=== PATIENT | male | born 1945 | race African-American/Black ===

== ENCOUNTER → 2017-06-18 | Outpatient (CLI) | payer MEDICARE ==
--- NOTE | 2017-06-18 15:11 | XR ---
EXAMINATION TYPE: XR lumbar spine 2 or 3V DATE OF EXAM: 06/18/2017 CLINICAL HISTORY: Low back pain after fall one month ago TECHNIQUE: Frontal and lateral images of the lumbar spine are obtained. COMPARISON: None FINDINGS: There are hypoplastic 12th ribs, especially on the left. There are 5 lumbar type vertebral bodies identified. The lumbar spine shows satisfactory alignment without evidence of acute fracture or dislocation. Vertebral body heights and disk space heights are within normal limits. Moderate to severe multilevel degenerative disc disease is seen of the lumbar spine demonstrated as flowing anter ior osteophytes, intervertebral disc space narrowing, facet arthropathy, and endplate sclerosis throu ghout the lumbar spine. The overlying soft tissue appears unremarkable. IMPRESSION: 1. No acute fracture or dislocation is seen in the lumbar spine. 2. Moderate to severe multilevel degenerative disc disease of the lumbar spine.
== END | disposition home or self-care (01) ==
LOC: RADXRMAIN 14:33
PROVIDERS: ATTEND Physician Assistant
DX: M51.36 Other intervertebral disc degeneration, lumbar region (principal)
CPT/HCPCS: 72100

== ENCOUNTER 2017-07-13 07:21 | Day surgery (SDC) | payer MEDICARE ==
[2017-07-08 12:49] VITALS: BMI 35.9
[2017-07-13 07:43] VITALS: TEMP 97.9
[2017-07-13] MEDS ORDERED: LACTATED RINGERS 1,000 ML IV ONE (07:45)
[2017-07-13] MEDS ORDERED: GLUCAGON 1 MG/ML VIAL ONE (08:58)
[2017-07-13] MEDS ORDERED: LABETALOL 5 MG/ML VIAL MDV ONE (08:58)
[2017-07-13] MEDS ORDERED: MIDAZOLAM 2 MG/2 ML VIAL ONE (08:58)
[2017-07-13] MEDS ORDERED: PROPOFOL 10 MG/ML 20 ML VIAL IV ONE (08:58)
[2017-07-13] MEDS ORDERED: LACTATED RINGERS 1,000 ML IV SCH (09:36)
[2017-07-13 09:45] VITALS: RESP 16
--- NOTE | 2017-07-13 09:46 | P.OP ---
Date of Procedure: 07/13/17 Preoperative Diagnosis: Positive Colaguard Postoperative Diagnosis: Same Procedure(s) Performed: Colonoscopy, biopsy polypoid lesion near cecum, biopsy lesion distal transverse colon with tattooing of the area Anesthesia: MAC Surgeon: Jessie Flynn Estimated Blood Loss (ml): 3 IV fluids (ml): 250 Pathology: other (Biopsy polyp distal transverse colon, biopsy polypoid lesion near cecum) Condition: stable Disposition: PACU Indications for Procedure: The patient is a 72-year-old black male who presented for evaluation secondary to a positive Corgard test. The patient however states he has been taking ibuprofen and stopped just 2 days ago. Secondary to his ibuprofen use it was discussed that should we see any lesions of concern were made biopsy but would most likely not remove these lesions. The patient is understanding and agreed to proceed with the procedure. The patient in the endoscopy suite was placed in the left lateral decubitus position. Rectal examination was performed. Patient was noted to have external hemorrhoids with a large right lateral hemorrhoidal external complex. Rectal exam did not reveal any masses of concern. Colonoscope was passed through the anus into the rectum. Was passed into the sigmoid colon where he had extensive diverticuli and spastic bowel. Glucagon was given. The scope was then able to be advanced to the splenic flexure into the distal transverse colon. In the distal transverse colon a polypoid lesion was identified this was somewhat sessile and somewhat suspicious. Biopsies were obtained and the area was tattooed using 2 mL of methylene blue. The scope continued to be advanced and additional polypoid lesions were identified in the mid transverse colon. Secondary to the fact that the he had been taking ibuprofen and it was certain that we would need to come back related to the one just identified these were not removed. Scope continued to be advanced beyond the hepatic flexure down into the right colon. The scope was advanced to the cecum. Upon advancing the scope a large polypoid lesion was identified near the ileocecal valve. This was likewise biopsied. The scope was advanced into the cecum and no lesions within the cecum were identified. The scope was withdrawn taking approximately 8 minutes to withdraw the scope. The lesion noted at the area of the cecum was biopsied as stated in the scope continued to be advanced. The scope was brought up to the transverse colon. Again additional small polypoid changes were noted which were are not biopsied removed secondary to the ibuprofen and the fact that we would definitely be needing to return either for polypectomy of the lesions stated that he would need a colon resection of the skin back as cancer. The scope continued to be withdrawn to the area of the left colon diverticuli identified. Scope was brought down to the rectum where it was retroflexed internal hemorrhoids identified. The biopsy of the lesions was somewhat cold biopsy forceps. Impression/plan: 1. Hemorrhoids external and internal with a large right lateral external hemorrhoidal complex 2. Extensive diverticuli 3. Polypoid lesions at the distal transverse colon biopsied and tattooed with methylene blue, a polypoid lesions within the transverse colon which were not removed secondary to patient being on ibuprofen 4. Polypoid lesion near the area of the cecum biopsied to rule out carcinoma Plan: 1. Follow up with patient in office next week with results of biopsy 2. Conservative management of diverticuli and hemorrhoids
--- NOTE | 2017-07-13 09:47 | P.DS ---
Providers Attending physician: Jessie Flynn Primary care physician: Stated None Plan - Discharge Summary New Discharge Prescriptions: No Action Furosemide [Lasix] 40 mg PO TUTH ALPRAZolam [Xanax] 0.25 mg PO TID Cyclobenzaprine [Flexeril] 5 mg PO TID Metoprolol Succinate [Toprol Xl] 50 mg PO HS Ibuprofen [Motrin] 800 mg PO TID PRN PRN Reason: Pain Atorvastatin [Lipitor] 20 mg PO HS Tamsulosin HCl [Flomax] 0.4 mg PO DAILY Discharge Medication List ALPRAZolam [Xanax] 0.25 mg PO TID 07/08/17 [History] Atorvastatin [Lipitor] 20 mg PO HS 07/08/17 [History] Cyclobenzaprine [Flexeril] 5 mg PO TID 07/08/17 [History] Furosemide [Lasix] 40 mg PO TUTH 07/08/17 [History] Ibuprofen [Motrin] 800 mg PO TID PRN 07/08/17 [History] Metoprolol Succinate [Toprol Xl] 50 mg PO HS 07/08/17 [History] Tamsulosin HCl [Flomax] 0.4 mg PO DAILY 07/08/17 [History] Follow up Appointment(s)/Referral(s): Jessie Flynn MD [STAFF PHYSICIAN] - 1 Week Activity/Diet/Wound Care/Special Instructions: diverticular diet Discharge Disposition: HOME SELF-CARE
[2017-07-13 10:04] VITALS: PULSE 78
[2017-07-13 10:27] VITALS: BP 153/88
== END 2017-07-13 10:43 | disposition home or self-care (01) ==
LOC: ORWHC2ENDO 07:21
PROVIDERS: ATTEND Surgery
DX: D12.3 Benign neoplasm of transverse colon (principal); D12.0 Benign neoplasm of cecum; K64.8 Other hemorrhoids; K92.1 Melena; I25.2 Old myocardial infarction; K57.30 Diverticulosis of large intestine without perforation or abscess without bleeding; I10 Essential (primary) hypertension; E78.5 Hyperlipidemia, unspecified; J45.909 Unspecified asthma, uncomplicated; I25.10 Atherosclerotic heart disease of native coronary artery without angina pectoris; K58.9 Irritable bowel syndrome, unspecified; K64.4 Residual hemorrhoidal skin tags; Z87.891 Personal history of nicotine dependence; Z79.82 Long term (current) use of aspirin; Z79.899 Other long term (current) drug therapy; Z85.46 Personal history of malignant neoplasm of prostate; Z86.718 Personal history of other venous thrombosis and embolism; Z79.1 Long term (current) use of non-steroidal anti-inflammatories (NSAID)
CPT/HCPCS: 88305; 45380; 45381; J2250; J1610; J2704; 44404

== ENCOUNTER → 2019-03-24 | Outpatient (CLI) | payer MEDICARE, OTHER ==
--- NOTE | 2019-03-24 14:09 | CT ---
EXAMINATION TYPE: CT angio abdomen pelvis DATE OF EXAM: 03/24/2019 COMPARISON: None INDICATION: Abdominal aortic aneurysm, without rupture, back pain DLP: 2179.5 mGycm, Automated exposure control for dose reduction was used. CONTRAST: 50 mL of Isovue 300. Study performed without Oral Contrast TECHNIQUE: Axial images were obtained from above the diaphragm to the pubic rami in the axial plane a t 5 mm thick sections. Reconstructed images are reviewed on the computer in the coronal plane. FINDINGS: Limited CT sections are obtained the lung bases. The lung bases are clear. CT ABDOMEN: Liver: There is a 2.8 cm cyst measuring 3 Hounsfield units within the medial left lobe liver. Spleen: Normal Pancreas: Mild fatty infiltration is present. Adrenal glands: The adrenal glands are normal. Gallbladder: Normal Kidneys: No masses are evident. No hydronephrosis is present. There is a 3.7 cm cyst on the anterio r left mid kidney measuring 0 Hounsfield units. There is a 2.3 cm cyst measuring 10 Hounsfield units in the upper medial posterior aspect right kidney. There is a large cyst at the inferior pole left ki dney measuring 6.3 cm in 2 Hounsfield units. A smaller cyst measuring 2.9 cm this at the inferior med ial pole left kidney. Aorta: There is a large abdominal aortic aneurysm which may have a saccular protrusion anteriorly. Th is measures roughly 9.7 cm AP by 6.9 cm transverse. The flow lumen however is significantly smaller a nd is greatest near the upper aspect of the aneurysm. Flow lumen is estimated at 4.1 cm. This appears to terminate at the iliac bifurcation. There is some mild prominence of the mid left common iliac ar juancarlos with a transverse dimension of 2.1 cm. Vascular calcifications within the iliac vessels extendin g to the femoral arteries. No aortic dissection is identified. There are 2 renal arteries. Abdominal aortic aneurysm begins below the level of the renal arteries. Inferior vena cava: Normal. CT PELVIS: Multiple diverticular changes are within the descending colon and sigmoid colon. No acute diverticuli tis is evident. Loops of bowel within the abdomen and pelvis otherwise appear unremarkable. The studi es performed without oral contrast limiting bowel evaluation. Appendix: Normal as visualized. Urinary bladder: Normal. Genitourinary structures: Prostate contains multiple brachii therapy seeds. Osseous structures: No suspicious lytic or sclerotic lesions. Degenerative changes are within the lum bar spine. IMPRESSIONS: 1. Abdominal aortic aneurysm measuring 9.7 x 6.9 cm. The flow lumen maximal near the proximal aneury sm is approximately 4.1 cm. This infrarenal abdominal aortic aneurysm appears to terminate at the bif urcation although there is some fusiform prominence of the mid left iliac artery.
== END | disposition home or self-care (01) ==
LOC: RADCTMAIN 05:51
PROVIDERS: ATTEND Surgery
DX: I71.4 Abdominal aortic aneurysm, without rupture (principal); I70.8 Atherosclerosis of other arteries
CPT/HCPCS: 82565; 84520; 36415; 74174; Q9967

== ENCOUNTER 2019-03-28 09:04 | Inpatient (IN) | payer MEDICARE, OTHER ==
--- NOTE | 2019-03-28 08:00 | ED ---
General Adult HPI - General Chief complaint: Abdominal Pain Stated complaint: rt sided pain Time Seen by Provider: 03/28/19 07:45 Source: patient, RN notes reviewed, old records reviewed Mode of arrival: ambulatory Limitations: no limitations - History of Present Illness Initial comments: This is a 73-year-old male who presents emergency Department with a known history of abdominal aortic aneurysm patient states it's about 9 cm. Patient states he had a CAT scan last week and the pain is gotten worse since then. Patient states Dr. Posey told come the emergency department. Patient states the pain is in the right CVA area around the flank on the right to the front mid abdomen. Patient denies any nausea vomiting diarrhea. Patient has any fever. Patient denies dysuria hematuria urinary frequency. Patient denies any chest pain difficulty breathing shortest breath. Patient denies any headache patient denies numbness weakness. Patient denies any lightheadedness or dizziness. - Related Data Home Medications Medication Instructions Recorded Confirmed ALPRAZolam [Xanax] 0.25 mg PO TID 07/08/17 07/13/17 Atorvastatin [Lipitor] 20 mg PO HS 07/08/17 07/13/17 Cyclobenzaprine [Flexeril] 5 mg PO TID 07/08/17 07/13/17 Furosemide [Lasix] 40 mg PO TUTH 07/08/17 07/13/17 Ibuprofen [Motrin] 800 mg PO TID PRN 07/08/17 07/13/17 Metoprolol Succinate [Toprol Xl] 50 mg PO HS 07/08/17 07/13/17 Tamsulosin HCl [Flomax] 0.4 mg PO DAILY 07/08/17 07/13/17 Allergies Allergy/AdvReac Type Severity Reaction Status Date / Time No Known Allergies Allergy Verified 03/28/19 07:41 Review of Systems ROS Statement: Those systems with pertinent positive or pertinent negative responses have been documented in the HPI. ROS Other: All systems not noted in ROS Statement are negative. Past Medical History Past Medical History: Coronary Artery Disease (CAD), Cancer, Deep Vein Thrombosis (DVT), Hyperlipidemia, Hypertension, Myocardial Infarction ([place]), Prostate Disorder Additional Past Medical History / Comment(s): HX PROSTATE CA. Last Myocardial Infarction Date:: 1997 History of Any Multi-Drug Resistant Organisms: None Reported Past Surgical History: Heart Catheterization With Stent, Orthopedic Surgery Additional Past Surgical History / Comment(s): ALEJANDRINA KNEE SCOPES. Past Anesthesia/Blood Transfusion Reactions: No Reported Reaction Date of Last Stent Placement:: 1997 Past Psychological History: No Psychological Hx Reported Smoking Status: Former smoker Past Alcohol Use History: Occasional Past Drug Use History: Marijuana - Past Family History Father Family Medical History: Cancer General Exam - General Exam Comments Initial Comments: GENERAL: Patient is well-developed and well-nourished. Patient is nontoxic and well- hydrated and is in mild distress. ENT: Neck is soft and supple. No significant lymphadenopathy is noted. Oropharynx is clear. Moist mucous membranes. Neck has full range of motion without eliciting any pain. EYES: The sclera were anicteric and conjunctiva were pink and moist. Extraocular movements were intact and pupils were equal round and reactive to light. Eyelids were unremarkable. PULMONARY: Unlabored respirations. Good breath sounds bilaterally. No audible rales rhonchi or wheezing was noted. CARDIOVASCULAR: There is a regular rate and rhythm without any murmurs gallops or rubs. ABDOMEN: Soft and nontender with normal bowel sounds. SKIN: Skin is clear with no lesions or rashes and otherwise unremarkable. NEUROLOGIC: Patient is alert and oriented x3. Cranial nerves II through XII are grossly intact. Motor and sensory are also intact. Normal speech, volume and content. Symmetrical smile. MUSCULOSKELETAL: Normal extremities with adequate strength and full range of motion. LYMPHATICS: No significant lymphadenopathy is noted PSYCHIATRIC: Normal psychiatric evaluation. Limitations: no limitations Course Vital Signs 03/28/19 07:43 Temperature 97.5 F L Pulse Rate 53 L Respiratory 18 Rate Blood Pressure 135/87 O2 Sat by Pulse 96 Oximetry Medical Decision Making - Medical Decision Making I spoke with Dr. Posey and Dr. Posey stated he will be down to see the patient. Dr. Posey came down and saw the patient and indicated he was taking the patient to the [facility] Patient's EKG shows sinus bradycardia at a rate of 56 bpm WA interval is 232 QRS is 1:30 QT interval is 4:30 QTC is 414. Patient's EKG shows no ST segment elevation or depression. - Lab Data Result diagrams: 03/28/19 08:09 Lab Results 03/28/19 Range/Units 08:09 WBC 10.3 (3.8-10.6) k/uL RBC 5.77 (4.30-5.90) m/uL Hgb 15.5 (13.0-17.5) gm/dL Hct 47.8 (39.0-53.0) % MCV 82.9 (80.0-100.0) fL MCH 26.8 (25.0-35.0) pg MCHC 32.4 (31.0-37.0) g/dL RDW 14.4 (11.5-15.5) % Plt Count 277 (150-450) k/uL Neutrophils % 75 % Lymphocytes % 12 % Monocytes % 7 % Eosinophils % 3 % Basophils % 3 % Neutrophils # 7.7 (1.3-7.7) k/uL Lymphocytes # 1.2 (1.0-4.8) k/uL Monocytes # 0.7 (0-1.0) k/uL Eosinophils # 0.3 (0-0.7) k/uL Basophils # 0.3 H (0-0.2) k/uL Disposition Referrals: Tomi Agustin DO [Primary Care Provider] - 1-2 days
[2019-03-28 08:20] LABS: Basophils # (A) 0.3 k/uL (0-0.2); Basophils % (A) 3 %; Eosinophils # (A) 0.3 k/uL (0-0.7); Eosinophils % (A) 3 %; HCT 47.8 % (39.0-53.0); HGB 15.5 gm/dL (13.0-17.5); Lymphocytes # (A) 1.2 k/uL (1.0-4.8); Lymphocytes % (A) 12 %; MCH 26.8 pg (25.0-35.0); MCHC 32.4 g/dL (31.0-37.0); MCV 82.9 fL (80.0-100.0); Mean Platelet Volume 7.8; Monocytes # (A) 0.7 k/uL (0-1.0); Monocytes % (A) 7 %; Neutrophils # (A) 7.7 k/uL (1.3-7.7); Neutrophils % (A) 75 %; Platelet Count 277 k/uL (150-450); RBC 5.77 m/uL (4.30-5.90); RDW 14.4 % (11.5-15.5); WBC 10.3 k/uL (3.8-10.6)
[2019-03-28 08:32] LABS: INR 1.1 (<1.2); Partial Thromboplastin Time 26.5 sec (22.0-30.0); Prothrombin Time 11.1 sec (9.0-12.0)
[2019-03-28 08:44] LABS: Calcium 9.6 mg/dL (8.4-10.2); Potassium 3.4 mmol/L (3.5-5.1); Total Bilirubin 0.9 mg/dL (0.2-1.3)
[~2019-03-28 09:04] MED LIST: HYDROmorphone 1 MG/ML 1 ML SYRINGE IVP STA; ONDANSETRON 4 MG/2 ML VIAL IVP STA; SODIUM CHLORIDE 0.9% 1,000 ML IV STA
[2019-03-28 09:12] LABS: Appearance,Urine Clear (Clear); Bilirubin,Urine Negative (Negative); Blood,Urine Negative (Negative); Color,Urine Yellow; Glucose,Urine (UA) Negative (Negative); Ketones,Urine Negative (Negative); Leukocyte Esterase,Urine Negative (Negative); Nitrite,Urine Negative (Negative); Protein,Urine Negative (Negative); Specific Gravity,Urine 1.009 (1.001-1.035); Urobilinogen,Urine <2.0 mg/dL (<2.0)
[2019-03-28] MEDS ORDERED: SODIUM CHLORIDE 0.9% 1,000 ML IV ONE (09:45)
[2019-03-28] MEDS ORDERED: ePHEDrine SULFATE/0.9% NACL/PF 50 MG/5 ML SYRINGE IV ONE (10:34)
[2019-03-28] MEDS ORDERED: ROCURONIUM BROMIDE 10 MG/ML 10 ML VIAL IV ONE (10:34)
[2019-03-28] MEDS ORDERED: ceFAZolin 1,000 MG VIAL ONE (10:34)
[2019-03-28] MEDS ORDERED: SODIUM CHLORIDE 0.9% 100 ML BAG ONE (10:34)
[2019-03-28] MEDS ORDERED: NEOSTIGMINE 1 MG/ML 10 ML VIAL ONE (10:34)
[2019-03-28] MEDS ORDERED: SUCCINYLCHOLINE CHLORIDE 100 MG/5 ML SYR IV ONE (10:34)
[2019-03-28] MEDS ORDERED: MIDAZOLAM 2 MG/2 ML VIAL ONE (10:34)
[2019-03-28] MEDS ORDERED: fentaNYL (PF) 50 MCG/ML 2 ML AMP ONE (10:34)
[2019-03-28] MEDS ORDERED: PHENYLEPHRINE-0.9% NACL SYG 1 MG/10 ML SYRINGE ONE (10:34)
[2019-03-28] MEDS ORDERED: GLYCOPYRROLATE 0.2 MG/ML 2 ML VIAL ONE (10:34)
[2019-03-28] MEDS ORDERED: PROPOFOL 10 MG/ML 20 ML VIAL IV ONE (10:34)
[2019-03-28] MEDS ORDERED: LIDOCAINE 1% INJ 10MG/ML (20 ML MDV) SQ ONE (11:03)
[2019-03-28] MEDS ORDERED: LACTATED RINGERS 1,000 ML IV ONE ×2 (11:15→11:30)
[2019-03-28] MEDS ORDERED: IOPAMIDOL-250 50ML BTL INTRAARTER ONE (12:29)
[2019-03-28] MEDS ORDERED: IOPAMIDOL-250 100ML BTL INTRAARTER ONE (12:29)
[2019-03-28] MEDS: MORPHINE SULF 5MG/10ML VL IVP ONE ×3 (13:14→13:40)
[2019-03-28] MEDS: hydrALAZINE HCL 20 MG/ML 1 ML VIAL IVP ONE ×2 (13:17→13:22)
[2019-03-28 13:50] LABS: Glucose,Whole Blood 152 mg/dL (75-99)
--- NOTE | 2019-03-28 15:14 | P.GSCN ---
History of Present Illness Consult date: 03/28/19 History of present illness: the patient is a 73-year-old gentleman who had an emergency endovascular stent for an expanding aortic aneurysm. The nursing staff attempted to place an intra-operative Suero but were unable to do so. Several attempts were made. I was asked to see the patient. The patient is sedated in the history is taken from the chart. Apparently there is a history of prostate cancer and he may been treated with radium seeds. He otherwise does not give him any urinary tract history of. Review of Systems ROS unobtainable: due to mental status Past Medical History Past Medical History: Coronary Artery Disease (CAD), Cancer, Deep Vein Thrombosis (DVT), Hyperlipidemia, Hypertension, Myocardial Infarction ([place]), Prostate Disorder Additional Past Medical History / Comment(s): HX PROSTATE CA. Last Myocardial Infarction Date:: 1997 History of Any Multi-Drug Resistant Organisms: None Reported Past Surgical History: Heart Catheterization With Stent, Orthopedic Surgery Additional Past Surgical History / Comment(s): ALEJANDRINA KNEE SCOPES. Past Anesthesia/Blood Transfusion Reactions: No Reported Reaction Date of Last Stent Placement:: 1997 Past Psychological History: No Psychological Hx Reported Smoking Status: Former smoker Past Alcohol Use History: Occasional Past Drug Use History: Marijuana - Past Family History Father Family Medical History: Cancer Medications and Allergies Home Medications Medication Instructions Recorded Confirmed Type ALPRAZolam [Xanax] 0.25 mg PO TID 07/08/17 03/28/19 History Atorvastatin [Lipitor] 20 mg PO QAM 07/08/17 03/28/19 History Furosemide [Lasix] 40 mg PO DAILY 07/08/17 03/28/19 History Tamsulosin HCl [Flomax] 0.4 mg PO HS 07/08/17 03/28/19 History Hydrochlorothiazide [Hydrodiuril] 25 mg PO DAILY 03/28/19 03/28/19 History Losartan Potassium 100 mg PO DAILY 03/28/19 03/28/19 History Metoprolol Succinate [Toprol XL] 100 mg PO DAILY 03/28/19 03/28/19 History Venlafaxine HCl ER [Effexor Xr] 150 mg PO DAILY 03/28/19 03/28/19 History Allergies Allergy/AdvReac Type Severity Reaction Status Date / Time No Known Allergies Allergy Verified 03/28/19 08:40 Surgical - Exam Vital Signs Temp Pulse Resp BP Pulse Ox 97.5 F L 53 L 18 135/87 96 03/28/19 07:43 03/28/19 07:43 03/28/19 07:43 03/28/19 07:43 03/28/19 07:43 - General the patient is sedated due to anesthesia well developed, well nourished - Neck no masses, trachea midline - Respiratory normal expansion, normal respiratory effort - Cardiovascular Rhythm: regular - Abdomen the bladder. Full and he is slightly uncomfortable suprapubically - Genitourinary normal penis with no external lesions, testicles present Results - Labs 03/28/19 08:09 03/28/19 08:09 Abnormal Lab Results - Last 24 Hours (Table) 03/28/19 03/28/19 03/28/19 Range/Units 08:09 08:09 13:48 Basophils # 0.3 H (0-0.2) k/uL Potassium 3.4 L (3.5-5.1) mmol/L Carbon Dioxide 32 H (22-30) mmol/L Creatinine 1.49 H (0.66-1.25) mg/dL Glucose 111 H (74-99) mg/dL POC Glucose (mg/dL) 152 H (75-99) mg/dL Diabetes panel 03/28/19 Range/Units 08:09 Sodium 140 (137-145) mmol/L Potassium 3.4 L (3.5-5.1) mmol/L Chloride 99 (98-107) mmol/L Carbon Dioxide 32 H (22-30) mmol/L BUN 19 (9-20) mg/dL Creatinine 1.49 H (0.66-1.25) mg/dL Glucose 111 H (74-99) mg/dL Calcium 9.6 (8.4-10.2) mg/dL AST 20 (17-59) U/L ALT 13 (4-49) U/L Alkaline Phosphatase 125 (38-126) U/L Total Protein 7.0 (6.3-8.2) g/dL Albumin 4.0 (3.5-5.0) g/dL Calcium panel 03/28/19 Range/Units 08:09 Calcium 9.6 (8.4-10.2) mg/dL Albumin 4.0 (3.5-5.0) g/dL Pituitary panel 03/28/19 Range/Units 08:09 Sodium 140 (137-145) mmol/L Potassium 3.4 L (3.5-5.1) mmol/L Chloride 99 (98-107) mmol/L Carbon Dioxide 32 H (22-30) mmol/L BUN 19 (9-20) mg/dL Creatinine 1.49 H (0.66-1.25) mg/dL Glucose 111 H (74-99) mg/dL Calcium 9.6 (8.4-10.2) mg/dL Adrenal panel 03/28/19 Range/Units 08:09 Sodium 140 (137-145) mmol/L Potassium 3.4 L (3.5-5.1) mmol/L Chloride 99 (98-107) mmol/L Carbon Dioxide 32 H (22-30) mmol/L BUN 19 (9-20) mg/dL Creatinine 1.49 H (0.66-1.25) mg/dL Glucose 111 H (74-99) mg/dL Calcium 9.6 (8.4-10.2) mg/dL Total Bilirubin 0.9 (0.2-1.3) mg/dL AST 20 (17-59) U/L ALT 13 (4-49) U/L Alkaline Phosphatase 125 (38-126) U/L Total Protein 7.0 (6.3-8.2) g/dL Albumin 4.0 (3.5-5.0) g/dL Assessment and Plan Assessment: impression: Urine retention postoperative, inability to pass a catheter. History of prostate cancer. Plan: Catheter placement
--- NOTE | 2019-03-28 15:16 | P.PCN ---
Date of Procedure: 03/28/19 Preoperative Diagnosis: urine retention postoperative history of prostate cancer Postoperative Diagnosis: same, urethral stricture Procedure(s) Performed: dilation of urethral stricture with filiforms and followers, difficult placement of 14 coud-tip cath Anesthesia: none Surgeon: Jack Buckner Pathology: none sent Condition: stable Disposition: PACU Indications for Procedure: the patient is 73. He underwent emergent placement of an endovascular stent for an expanding aortic aneurysm. Nursing staff is unable place a catheter perioperatively. I've been asked to do so. There is a history of prostate cancer. The patient can give no history. Description of Procedure: the patient is prepped and draped sterilely. I first attempted pass a 14-Martiniquais coud-tip catheter meet resistance in the deep bulbar urethra. It feels like a stricture. I passed filiforms and him able to get a 3-Martiniquais filiform into the bladder. Then dilate the bladder from [id number] with filiforms and followers. The strictures in the bulbar urethra is somewhat dense based on the way it is dilating. I then remove the filiforms and followers and passed a 14- Martiniquais coud-tip catheter in the bladder. there is 750 mL of clear urine. Impression urethral stricture. THe catheter should remain in one week and then can be removed. He should follow-up in our office.
[2019-03-28 15:21] LABS: Glucose,Whole Blood 141 mg/dL (75-99)
[2019-03-28] MEDS: LACTATED RINGERS 1,000 ML IV SCH ×2 (15:58→22:00)
--- NOTE | 2019-03-28 16:08 | P.CNPUL ---
History of Present Illness Consult date: 03/28/19 Requesting physician: Sonali Suero Reason for consult: other Chief complaint: Right flank pain, abdominal aortic aneurysm History of present illness: This is a 73-year-old male patient who follows with Dr. Posey for his history of abdominal aortic aneurysm measuring 9 cm. Last week patient had a computed tomography scan of the abdomen because he was having increased right flank pain radiating around the flank onto the front. Patient was told to go to the nearest emergency department for evaluation, vital signs have been stable, it was of breath, no chest pain, no weakness, no numbness, no headaches. No lightheadedness or dizziness. Patient's medical history is positive for chronic artery disease with previous stenting, hypertension, hyperlipidemia, previous episode of DVT, history of prostate cancer, former smoker. CT of abdomen and pelvis completed on 03/24/2019 showed abdominal aortic measuring 9.7 cm x 6.9 cm. in maximal flow lumen near the proximal aneurysm was approximately 4.1 cm, and appeared to terminate at the bifurcation although there was some fusiform prominence of the mid left iliac artery. Dr. Posey took the patient to the [facility], for endovascular stenting of the abdominal aortic aneurysm. In the patient in the postoperative period in the intensive care unit, he is awake and alert oriented 3, he denies any acute distress, he is on bedrest, hypothermic with a temp of 94.7, but hemodynamically stable. Denies any shortness of breath, hemodynamically patient is stable. Review of Systems All systems: negative Constitutional: Denies chills, Denies fever Eyes: denies blurred vision, denies pain Ears, nose, mouth and throat: Denies headache, Denies sore throat Cardiovascular: Denies chest pain, Denies shortness of breath Respiratory: Denies cough Gastrointestinal: Denies abdominal pain, Denies diarrhea, Denies nausea, Denies vomiting Genitourinary: Reports flank pain Musculoskeletal: Denies myalgias Integumentary: Denies pruritus, Denies rash Neurological: Denies numbness, Denies weakness Psychiatric: Denies anxiety, Denies depression Endocrine: Denies fatigue, Denies weight change Past Medical History Past Medical History: Coronary Artery Disease (CAD), Cancer, Deep Vein Thrombosis (DVT), Hyperlipidemia, Hypertension, Myocardial Infarction (AR), Prostate Disorder Additional Past Medical History / Comment(s): HX PROSTATE CA. Last Myocardial Infarction Date:: 1997 History of Any Multi-Drug Resistant Organisms: None Reported Past Surgical History: Heart Catheterization With Stent, Orthopedic Surgery Additional Past Surgical History / Comment(s): ALEJANDRINA KNEE SCOPES. Past Anesthesia/Blood Transfusion Reactions: No Reported Reaction Date of Last Stent Placement:: 1997 Past Psychological History: No Psychological Hx Reported Smoking Status: Former smoker Past Alcohol Use History: Occasional Past Drug Use History: Marijuana - Past Family History Father Family Medical History: Cancer Medications and Allergies Home Medications Medication Instructions Recorded Confirmed Type ALPRAZolam [Xanax] 0.25 mg PO TID 07/08/17 03/28/19 History Atorvastatin [Lipitor] 20 mg PO QAM 07/08/17 03/28/19 History Furosemide [Lasix] 40 mg PO DAILY 07/08/17 03/28/19 History Tamsulosin HCl [Flomax] 0.4 mg PO HS 07/08/17 03/28/19 History Hydrochlorothiazide [Hydrodiuril] 25 mg PO DAILY 03/28/19 03/28/19 History Losartan Potassium 100 mg PO DAILY 03/28/19 03/28/19 History Metoprolol Succinate [Toprol XL] 100 mg PO DAILY 03/28/19 03/28/19 History Venlafaxine HCl ER [Effexor Xr] 150 mg PO DAILY 03/28/19 03/28/19 History Allergies Allergy/AdvReac Type Severity Reaction Status Date / Time No Known Allergies Allergy Verified 03/28/19 08:40 Physical Exam Vitals: Vital Signs Temp Pulse Pulse Pulse Resp BP BP 03/28/19 14:19 72 14 135/79 03/28/19 14:16 72 03/28/19 14:05 72 14 143/83 03/28/19 13:50 73 14 152/84 03/28/19 13:43 70 14 144/88 03/28/19 13:32 70 16 159/109 03/28/19 13:14 64 16 159/109 03/28/19 13:00 64 16 180/107 03/28/19 09:40 97.8 F 52 L 18 128/83 03/28/19 08:46 97.7 F 53 L 16 121/90 03/28/19 07:43 97.5 F L 53 L 18 135/87 BP Pulse Ox 03/28/19 14:19 133/60 94 L 03/28/19 14:16 03/28/19 14:05 138/63 94 L 03/28/19 13:50 145/66 94 L 03/28/19 13:43 141/77 99 03/28/19 13:32 165/75 98 03/28/19 13:14 165/77 98 03/28/19 13:00 97 03/28/19 09:40 92 L 03/28/19 08:46 97 03/28/19 07:43 96 Intake and Output 03/27/19 03/28/19 03/28/19 22:59 06:59 14:59 Intake Total 1650 Balance 1650 Intake: IV 1650 Other: Voiding Method Toilet Weight 114.305 kg GENERAL EXAM: Alert, very pleasant, 73-year-old white male, on 2 L of oxygen, with a bear hugger on with a pulse ox of 94%, comfortable in no apparent distress. HEAD: Normocephalic/atraumatic. Slight left facial droop related to history of Quiroz's palsy EYES: Normal reaction of pupils, equal size. Conjunctiva pink, sclera white. NOSE: Clear with pink turbinates. THROAT: No erythema or exudates. NECK: No masses, no JVD, no thyroid enlargement, no adenopathy. CHEST: No chest wall deformity. Symmetrical expansion. LUNGS: Equal air entry with no crackles, wheeze, rhonchi or dullness. CVS: Regular rate and rhythm, normal S1 and S2, no gallops, no murmurs, no rubs ABDOMEN: Soft, nontender. No hepatosplenomegaly, normal bowel sounds, no guarding or rigidity. EXTREMITIES: No clubbing, no edema, no cyanosis, 2+ pulses and upper and lower extremities. Right groin puncture site is clean dry and intact MUSCULOSKELETAL: Muscle strength and tone normal. SPINE: No scoliosis or deformity SKIN: No rashes CENTRAL NERVOUS SYSTEM: somnolent, but arousable, oriented 3. No focal deficits, tone is normal in all 4 extremities. Results - Laboratory Findings CBC and BMP: 03/28/19 08:09 03/28/19 08:09 PT/INR, D-dimer PT 11.1 sec (9.0-12.0) 03/28/19 08:09 INR 1.1 (<1.2) 03/28/19 08:09 Abnormal lab findings: Abnormal Labs 03/28/19 03/28/19 03/28/19 08:09 08:09 13:48 Basophils # 0.3 H Potassium 3.4 L Carbon Dioxide 32 H Creatinine 1.49 H Glucose 111 H POC Glucose (mg/dL) 152 H - Diagnostic Findings Chest x-ray: report reviewed, image reviewed Assessment and Plan Plan: Assessment: #1. Abdominal aortic aneurysm, without rupture, increasing in size, status post endovascular stent placement, postoperative day 0 #2. Right flank pain related to the above #3. History of coronary artery disease with previous stenting #4. History of DVT #5. Hypertension #6. Hyperlipidemia #7. History of myocardial infarction #8. History of prostate cancer #9. Former smoker #10. 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 Urinary retention, status post Coude-tip catheter placement #13. Hypothermia, could be related to sedatives given for the procedure, rewarming Plan: Maintain pain control, continue IV fluids and antibiotics per vascular surgery, continue close hemodynamic and neurologic monitoring. Patient denies any acute distress, no shortness of breath, no chest pain, will resume patient's home medications, he is able to take things by mouth. Patient will be closely monitored in the intensive care unit, will continue to follow I performed a history & physical examination of the patient and discussed their management with my nurse practitioner, Clary Valdez. I reviewed the nurse practitioner's note and agree with the documented findings and plan of care. Lung sounds are positive for clear breath sounds. The findings and the impression was discussed with the patient. I attest to the documentation by the nurse practitioner. Time with Patient: Greater than 30
[2019-03-28 16:19] LABS: Basophils # (A) 0.1 k/uL (0-0.2); Basophils % (A) 0 %; Eosinophils # (A) 0.1 k/uL (0-0.7); Eosinophils % (A) 1 %; HCT 43.6 % (39.0-53.0); HGB 14.1 gm/dL (13.0-17.5); Lymphocytes # (A) 0.6 k/uL (1.0-4.8); Lymphocytes % (A) 5 %; MCH 27.1 pg (25.0-35.0); MCHC 32.3 g/dL (31.0-37.0); MCV 83.8 fL (80.0-100.0); Monocytes # (A) 0.8 k/uL (0-1.0); Monocytes % (A) 6 %; Neutrophils # (A) 11.3 k/uL (1.3-7.7); Neutrophils % (A) 88 %; Platelet Count 220 k/uL (150-450); RBC 5.21 m/uL (4.30-5.90); RDW 14.3 % (11.5-15.5); WBC 12.9 k/uL (3.8-10.6)
[2019-03-28 16:26] LABS: Calcium 8.5 mg/dL (8.4-10.2); Potassium 3.3 mmol/L (3.5-5.1)
[2019-03-28] MEDS: ALPRAZolam 0.25 MG TAB PO SCH ×2 (16:52→22:14)
[2019-03-28] MEDS: POTASSIUM CHLORIDE ER 20 MEQ TAB.ER PO SCH ×2 (17:55→19:02)
[2019-03-28] MEDS ORDERED: TAMSULOSIN 0.4 MG CAP.ER.24H PO SCH (21:00)
--- NOTE | 2019-03-28 22:22 | P.CONS ---
History of Present Illness - Reason for Consult Consult date: 03/28/19 Medical management Requesting physician: Aj Posey - Chief Complaint Abdominal pain - History of Present Illness Consultation: This is a pleasant 73-year-old patient of Dr. Alvarez. Patient had a computed tomography scan of the [facility] he was told he is a 9 cm abdominal aortic aneurysm. Patient's chronic abdominal pain. Pain did worsen yesterday and decided to present to the ER. It was radiating to the back Dr. Posey was consulted and patient was taken to the or. Endovascular's stent was placed. In the postoperative time there was difficulty getting her Suero catheter due to the patient and Dr. Le was consulted. Vision is of a urethral stricture" in character was placed. Postprocedure laying in bed comfortable. Blood pressure has been maintained. Patient has pressure dressing of both the groins. Chronic stable medical conditions include coronary artery disease with stent, DVT, hypertension, hyperlipidemia, history of prostate cancer. Patient rather tired right now crusting. No chest pain or shortness of breath. Review of systems: GEN.: Tired EYES: None HEENT: None NECK: None RESPIRATORY: None CARDIOVASCULAR: None GASTROINTESTINAL: Has above GENITOURINARY: None MUSCULOSKELETAL: Joint pains LYMPHATICS: None HEMATOLOGICAL: None PSYCHIATRY: None NEUROLOGICAL: None Social history: Lives with his girlfriend. Alcohol occasionally. Smoked a pack a day for about 30 years. Stopped in 1997. Does marijuana daily Physical examination: VITAL SIGNS: 98.7, 71, 21, 11 3/69, 93% on 2 L GENERAL: BMI 36.2, laying in bed tired, with a bear hugger. EYES: Pupils equal. Conjunctiva normal. HEENT: External appearance of nose and ears normal, oral cavity grossly normal. NECK: JVD unable to assess; masses not palpable. HEART: First and second heart sounds are normal; no edema. LUNGS:[ Respiratory rate normal; decreased breath sounds. ABDOMEN: Soft, nontender, liver spleen not palpable, no masses palpable, dressing in both the groins, Suero catheter in place. PSYCH: Tired but able to answer simple questionsl. NEUROLOGICAL: Cranial nerves grossly intact; no facial asymmetry, power and sensation grossly intact. LYMPHATICS: No lymph nodes palpable in the axilla and neck INVESTIGATIONS, reviewed in the clinical context: White count 10.3 hemoglobin 14.1 potassium 3.3 creatinine 1.3 bun EKG tracing personally reviewed by me-normal sinus rhythm with nonspecific T- wave changes Assessment: -Abdominal aortic aneurysm 9.7 cm with worsening abdominal pain, followed by endovascular stent -Urethral stricture, now with a coud catheter -Coronary artery disease with stent -Essential hypertension -Hyperlipidemia -Colonic diverticulosis, asymptomatic -Depression and anxiety not otherwise specified -Bladder outflow obstruction requiring Flomax Plan: Patient getting IV fluids. Resting in bed. Home medications to be resumed. Getting IV fluids. Venodyne boots for DVT prophylaxis care was discussed with the patient question were answered. Follow hemoglobin closely. Thank you Dr. Posey. Past Medical History Past Medical History: Coronary Artery Disease (CAD), Cancer, Deep Vein Thrombosis (DVT), Hyperlipidemia, Hypertension, Myocardial Infarction (ID), Prostate Disorder Additional Past Medical History / Comment(s): HX PROSTATE CA. Last Myocardial Infarction Date:: 1997 History of Any Multi-Drug Resistant Organisms: None Reported Past Surgical History: Heart Catheterization With Stent, Orthopedic Surgery Additional Past Surgical History / Comment(s): ALEJANDRINA KNEE SCOPES. Past Anesthesia/Blood Transfusion Reactions: No Reported Reaction Date of Last Stent Placement:: 1997 Past Psychological History: No Psychological Hx Reported Smoking Status: Former smoker Past Alcohol Use History: Occasional Past Drug Use History: Marijuana - Past Family History Father Family Medical History: Cancer Medications and Allergies Home Medications Medication Instructions Recorded Confirmed Type ALPRAZolam [Xanax] 0.25 mg PO TID 07/08/17 03/28/19 History Atorvastatin [Lipitor] 20 mg PO QAM 07/08/17 03/28/19 History Furosemide [Lasix] 40 mg PO DAILY 07/08/17 03/28/19 History Tamsulosin HCl [Flomax] 0.4 mg PO HS 07/08/17 03/28/19 History Hydrochlorothiazide [Hydrodiuril] 25 mg PO DAILY 03/28/19 03/28/19 History Losartan Potassium 100 mg PO DAILY 03/28/19 03/28/19 History Metoprolol Succinate [Toprol XL] 100 mg PO DAILY 03/28/19 03/28/19 History Venlafaxine HCl ER [Effexor Xr] 150 mg PO DAILY 03/28/19 03/28/19 History Allergies Allergy/AdvReac Type Severity Reaction Status Date / Time No Known Allergies Allergy Verified 03/28/19 08:40 Physical Exam Vitals: Vital Signs Temp Pulse Pulse Pulse Resp BP BP 03/28/19 22:00 67 22 117/70 03/28/19 21:00 70 20 119/70 03/28/19 20:00 98.7 F 71 21 113/69 03/28/19 19:30 72 24 113/69 03/28/19 19:15 72 25 H 03/28/19 19:00 71 21 108/70 03/28/19 18:45 73 23 108/70 03/28/19 18:30 73 23 108/70 03/28/19 18:15 76 24 03/28/19 18:00 97.7 F 75 16 03/28/19 17:45 73 18 03/28/19 17:30 73 22 03/28/19 17:15 72 20 03/28/19 17:00 96.1 F L 71 18 03/28/19 16:45 71 24 03/28/19 16:30 70 18 03/28/19 16:15 69 22 03/28/19 16:00 69 27 H 03/28/19 15:45 70 19 03/28/19 15:30 94.8 F L 68 13 123/77 03/28/19 15:20 94.8 F L 12 03/28/19 14:56 70 14 118/70 03/28/19 14:48 70 16 138/82 03/28/19 14:19 72 14 135/79 03/28/19 14:16 72 03/28/19 14:05 72 14 143/83 03/28/19 13:50 73 14 152/84 03/28/19 13:43 70 14 144/88 03/28/19 13:32 70 16 159/109 03/28/19 13:14 64 16 159/109 03/28/19 13:00 64 16 180/107 03/28/19 09:40 97.8 F 52 L 18 128/83 03/28/19 08:46 97.7 F 53 L 16 121/90 03/28/19 07:43 97.5 F L 53 L 18 135/87 BP Pulse Ox 03/28/19 22:00 95 03/28/19 21:00 94 L 03/28/19 20:00 93 L 03/28/19 19:30 93 L 03/28/19 19:15 93 L 03/28/19 19:00 93 L 03/28/19 18:45 93 L 03/28/19 18:30 93 L 03/28/19 18:15 93 L 03/28/19 18:00 92 L 03/28/19 17:45 92 L 03/28/19 17:30 92 L 03/28/19 17:15 92 L 03/28/19 17:00 92 L 03/28/19 16:45 91 L 03/28/19 16:30 92 L 03/28/19 16:15 92 L 03/28/19 16:00 93 L 03/28/19 15:45 93 L 03/28/19 15:30 93 L 03/28/19 15:20 03/28/19 14:56 115/52 94 L 03/28/19 14:48 109/54 93 L 03/28/19 14:19 133/60 94 L 03/28/19 14:16 03/28/19 14:05 138/63 94 L 03/28/19 13:50 145/66 94 L 03/28/19 13:43 141/77 99 03/28/19 13:32 165/75 98 03/28/19 13:14 165/77 98 03/28/19 13:00 97 03/28/19 09:40 92 L 03/28/19 08:46 97 03/28/19 07:43 96 Intake and Output 03/28/19 03/28/19 03/28/19 06:59 14:59 22:59 Intake Total 1650 768 Output Total 1225 Balance 1650 -457 Intake: IV 1650 768 Lactated Ringers 1,000 ml 600 @ 100 mls/hr IV .Q10H [facility] Rx#:[id number] Pressure bag 18 Output: Urine 1225 Other: Voiding Method Toilet Indwelling Catheter Weight 114.305 kg 114.305 kg ABP, PAP, CO, CI - Last 8 Hours Arterial Blood Pressure 113/54 Arterial Blood Pressure 116/54 Arterial Blood Pressure 120/62 Arterial Blood Pressure 115/63 Arterial Blood Pressure 119/65 Arterial Blood Pressure 110/60 Arterial Blood Pressure 104/57 Arterial Blood Pressure 103/57 Arterial Blood Pressure 102/57 Arterial Blood Pressure 98/54 Arterial Blood Pressure 101/54 Arterial Blood Pressure 104/56 Arterial Blood Pressure 106/56 Arterial Blood Pressure 105/55 Arterial Blood Pressure 110/57 Arterial Blood Pressure 107/55 Arterial Blood Pressure 111/57 Arterial Blood Pressure 111/59 Arterial Blood Pressure 118/57 Arterial Blood Pressure 121/55 Results CBC & Chem 7: 03/28/19 16:00 03/28/19 16:00 Labs: Abnormal Lab Results - Last 24 Hours (Table) 03/28/19 03/28/19 03/28/19 Range/Units 08:09 08:09 13:48 WBC (3.8-10.6) k/uL Neutrophils # (1.3-7.7) k/uL Lymphocytes # (1.0-4.8) k/uL Basophils # 0.3 H (0-0.2) k/uL Potassium 3.4 L (3.5-5.1) mmol/L Carbon Dioxide 32 H (22-30) mmol/L Creatinine 1.49 H (0.66-1.25) mg/dL Glucose 111 H (74-99) mg/dL POC Glucose (mg/dL) 152 H (75-99) mg/dL 03/28/19 03/28/19 03/28/19 Range/Units 15:20 16:00 16:00 WBC 12.9 H (3.8-10.6) k/uL Neutrophils # 11.3 H (1.3-7.7) k/uL Lymphocytes # 0.6 L (1.0-4.8) k/uL Basophils # (0-0.2) k/uL Potassium 3.3 L (3.5-5.1) mmol/L Carbon Dioxide 32 H (22-30) mmol/L Creatinine 1.31 H (0.66-1.25) mg/dL Glucose 127 H (74-99) mg/dL POC Glucose (mg/dL) 141 H (75-99) mg/dL
[2019-03-29 05:25] LABS: Basophils # (A) 0.1 k/uL (0-0.2); Basophils % (A) 1 %; Eosinophils # (A) 0.2 k/uL (0-0.7); Eosinophils % (A) 1 %; HCT 39.9 % (39.0-53.0); HGB 13.2 gm/dL (13.0-17.5); Lymphocytes # (A) 0.6 k/uL (1.0-4.8); Lymphocytes % (A) 5 %; MCH 27.7 pg (25.0-35.0); MCHC 33.1 g/dL (31.0-37.0); MCV 83.6 fL (80.0-100.0); Mean Platelet Volume 8.2; Monocytes # (A) 0.8 k/uL (0-1.0); Monocytes % (A) 7 %; Neutrophils # (A) 10.3 k/uL (1.3-7.7); Neutrophils % (A) 85 %; Platelet Count 216 k/uL (150-450); RBC 4.78 m/uL (4.30-5.90); RDW 14.2 % (11.5-15.5); WBC 12.1 k/uL (3.8-10.6)
[2019-03-29 05:35] LABS: Calcium 8.6 mg/dL (8.4-10.2); Potassium 3.8 mmol/L (3.5-5.1)
[2019-03-29 07:03] VITALS: BP 122/64
--- NOTE | 2019-03-29 08:01 | IR ---
EXAMINATION TYPE: IR stent intravas non coronary DATE OF EXAM: 03/28/2019 CLINICAL HISTORY: Aortic aneurysm. TECHNIQUE: Fluoroscopy. COMPARISON: CTA 4 days ago.. FINDINGS: Fluoroscopic guidance was provided during intravascular aneurysm repair procedure performe d by Dr. Posey. A total of 20.6 minutes of fluoroscopic time was utilized during the procedure and multiple centimeters lungs are acquired. Images acquired show access via bilateral groins with subse quent placement of a graft over known abdominal aortic aneurysm. IMPRESSION: As Above.
[2019-03-29 08:09] VITALS: TEMP 98.8
[2019-03-29] MEDS: ALPRAZolam 0.25 MG TAB PO SCH (08:26)
[2019-03-29] MEDS: LACTATED RINGERS 1,000 ML IV SCH (08:27)
[2019-03-29] MEDS: METOPROLOL SUCCINATE (ER) 100 MG TAB.ER.24H PO SCH ×2 (08:27→08:29)
[2019-03-29] MEDS ORDERED: VENLAFAXINE HCL ER 150 MG CAP PO SCH (09:00)
[2019-03-29] MEDS ORDERED: ATORVASTATIN 20 MG TAB PO SCH (09:00)
--- NOTE | 2019-03-29 09:26 | P.PN ---
Subjective Progress Note Date: 03/29/19 Principal diagnosis: abdominal aortic aneurysm status post endovascular stenting This is a 73-year-old male patient who follows with Dr. Posey for his history of abdominal aortic aneurysm measuring 9 cm. Last week patient had a computed tomography scan of the abdomen because he was having increased right flank pain radiating around the flank onto the front. Patient was told to go to the nearest emergency department for evaluation, vital signs have been stable, it was of breath, no chest pain, no weakness, no numbness, no headaches. No lightheadedness or dizziness. Patient's medical history is positive for chronic artery disease with previous stenting, hypertension, hyperlipidemia, previous episode of DVT, history of prostate cancer, former smoker. CT of abdomen and pelvis completed on 03/24/2019 showed abdominal aortic measuring 9.7 cm x 6.9 cm. in maximal flow lumen near the proximal aneurysm was approximately 4.1 cm, and appeared to terminate at the bifurcation although there was some fusiform prominence of the mid left iliac artery. Dr. Posey took the patient to the [facility], for endovascular stenting of the abdominal aortic aneurysm. In the patient in the postoperative period in the intensive care unit, he is awake and alert oriented 3, he denies any acute distress, he is on bedrest, hypothermic with a temp of 94.7, but hemodynamically stable. Denies any shortness of breath, hemodynamically patient is stable. On 03/29/2019 patient seen in follow-up in the intensive care unit. Awake and alert, oriented 3, he sitting up in the recliner today, doing well, no specific complaints, patient is on 2 L of oxygen with a pulse ox of 94-96%, hemod ynamically patient is stable, patient had some bradycardia episodes with a heart rate in the 40s and 50s during the night, currently in sinus rhythm with a rate of 68, his morning dose of Toprol is on hold until cardiology sees him. today's labs have been reviewed, white blood cell count is 12.1, hemoglobin is 13.2, electrolytes are within normal limits with the exception of CO2 which is at 34, renal profile is within normal limits today, Suero catheter is in place, and patient is nonoliguric Objective - Vital Signs Vital signs: Vital Signs Temp 98.8 F 03/29/19 08:00 Pulse 68 03/29/19 08:00 Resp 24 03/29/19 08:00 BP 122/64 03/29/19 07:00 Pulse Ox 94 L 03/29/19 08:00 Intake & Output 03/28/19 03/29/19 03/29/19 18:59 06:59 18:59 Intake Total 2212 1236 206 Output Total 1070 840 115 Balance 1142 396 91 Weight 114.305 kg 120 kg Intake: IV 2212 1236 206 Lactated Ringers 1,000 ml 400 1200 200 @ 100 mls/hr IV .Q10H [facility] Rx#:[id number] Pressure bag 12 36 6 Output: Urine 1070 840 115 Other: Voiding Method Toilet Indwelling Catheter ABP, PAP, CO, CI - Last Documented Arterial Blood Pressure 135/59 - Exam GENERAL EXAM: Alert, very pleasant, 73-year-old white male, sitting up in the chairon 2 L of oxygen, pulse ox of 94%, comfortable in no apparent distress. HEAD: Normocephalic/atraumatic. Slight left facial droop related to history of Quiroz's palsy EYES: Normal reaction of pupils, equal size. Conjunctiva pink, sclera white. NOSE: Clear with pink turbinates. THROAT: No erythema or exudates. NECK: No masses, no JVD, no thyroid enlargement, no adenopathy. CHEST: No chest wall deformity. Symmetrical expansion. LUNGS: Equal air entry with no crackles, wheeze, rhonchi or dullness. CVS: Regular rate and rhythm, normal S1 and S2, no gallops, no murmurs, no rubs ABDOMEN: Soft, nontender. No hepatosplenomegaly, normal bowel sounds, no guarding or rigidity. EXTREMITIES: No clubbing, no edema, no cyanosis, 2+ pulses and upper and lower extremities. Right and left groin puncture site is clean dry and intact MUSCULOSKELETAL: Muscle strength and tone normal. SPINE: No scoliosis or deformity SKIN: No rashes CENTRAL NERVOUS SYSTEM: somnolent, but arousable, oriented 3. No focal deficits, tone is normal in all 4 extremities. - Labs CBC & Chem 7: 03/29/19 05:10 03/29/19 05:10 Labs: Abnormal Lab Results - Last 24 Hours (Table) 12/17/19 12/17/19 12/17/19 Range/Units 13:48 15:20 16:00 WBC 12.9 H (3.8-10.6) k/uL Neutrophils # 11.3 H (1.3-7.7) k/uL Lymphocytes # 0.6 L (1.0-4.8) k/uL Potassium (3.5-5.1) mmol/L Carbon Dioxide (22-30) mmol/L Creatinine (0.66-1.25) mg/dL Glucose (74-99) mg/dL POC Glucose (mg/dL) 152 H 141 H (75-99) mg/dL 03/28/19 03/29/19 03/29/19 Range/Units 16:00 05:10 05:10 WBC 12.1 H (3.8-10.6) k/uL Neutrophils # 10.3 H (1.3-7.7) k/uL Lymphocytes # 0.6 L (1.0-4.8) k/uL Potassium 3.3 L (3.5-5.1) mmol/L Carbon Dioxide 32 H 34 H (22-30) mmol/L Creatinine 1.31 H (0.66-1.25) mg/dL Glucose 127 H 125 H (74-99) mg/dL POC Glucose (mg/dL) (75-99) mg/dL Assessment and Plan Plan: Assessment: #1. Abdominal aortic aneurysm, without rupture, increasing in size, status post endovascular stent placement, postoperative day 1 #2. Right flank pain related to the above #3. History of coronary artery disease with previous stenting #4. History of DVT #5. Hypertension #6. Hyperlipidemia #7. History of myocardial infarction #8. History of prostate cancer #9. Former smoker #10. 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 Urinary retention, status post Coude-tip catheter placement #13. Hypothermia, could be related to sedatives given for the procedure, rewarming Plan: Patient is doing well, no specific complaints, vital signs are stable, incisions are clean dry and intact, no complaints of back pain, his labs have been reviewed. No acute issues overnight, we'll discontinue the Suero catheter, discontinue the a line, and IV fluids, increase activity as tolerated. Patient will be discharged home sometime today per vascular surgery. I performed a history & physical examination of the patient and discussed their management with my nurse practitioner, Clary Valdez. I reviewed the nurse practitioner's note and agree with the documented findings and plan of care. Lung sounds are positive for clear breath sounds. The findings and the impression was discussed with the patient. I attest to the documentation by the nurse practitioner. Time with Patient: Less than 30
--- NOTE | 2019-03-29 10:51 | P.DS ---
Providers Date of admission: 03/28/19 11:30 Attending physician: Aj Posey DO Consults: 03/28/19 09:14 Consult to Anesthesia Routine Consulting Provider: Anesthesia,Services Consult Reason/Comments: General anesthesia for Aortic Stent procedure 03/28/19 12:35 Consult Physician Routine Consulting Provider: Chioma Rose Consult Reason/Comments: post op aaa Do you want consulting provider notified?: Yes 03/28/19 12:36 Consult Physician Routine Consulting Provider: Angelo Cruz Consult Reason/Comments: post op aaa Do you want consulting provider notified?: Yes 03/28/19 14:03 Consult Physician Urgent Consulting Provider: Jack Buckner Consult Reason/Comments: unable to insert idc in cvl lab Do you want consulting provider notified?: Already Contacted 03/28/19 14:40 Consult Physician Routine Consulting Provider: Aisha Zamarripa Consult Reason/Comments: AAA repair, medication management Do you want consulting provider notified?: Yes Primary care physician: [facility] [place] Course: Patient had an endovascular abdominal aortic repair yesterday with Dr. Posey. Patient was seen and evaluated today with Dr. Suero and is doing well. Pressure dressing removed from bilateral groins, with no signs of hematoma. No active bleeding, dressing is clean dry and intact. A-line may be removed. Patient is sitting up in recliner, denies any shortness of breath or chest pain. Patient denies any pain, is tolerating diet. Urology was on consult for difficulty initiating a Suero catheter, catheter was placed and was advised to remain in for one week. Patient to follow-up with urology on discharge. Dr. Suero discussed with patient, patient may be discharged home later today if cardiology clears. Patient is to follow-up with Dr. Posey in the office in 1-2 weeks. Patient is not to tub bathe, do any heavy lifting or strenuous activity. Plan - Discharge Summary Discharge Rx Participant: Yes New Discharge Prescriptions: No Action Furosemide [Lasix] 40 mg PO DAILY ALPRAZolam [Xanax] 0.25 mg PO TID Atorvastatin [Lipitor] 20 mg PO QAM Tamsulosin HCl [Flomax] 0.4 mg PO HS Metoprolol Succinate [Toprol XL] 100 mg PO DAILY Venlafaxine HCl ER [Effexor Xr] 150 mg PO DAILY Losartan Potassium 100 mg PO DAILY Hydrochlorothiazide [Hydrodiuril] 25 mg PO DAILY Discharge Medication List ALPRAZolam [Xanax] 0.25 mg PO TID 07/08/17 [History] Atorvastatin [Lipitor] 20 mg PO QAM 07/08/17 [History] Furosemide [Lasix] 40 mg PO DAILY 07/08/17 [History] Tamsulosin HCl [Flomax] 0.4 mg PO HS 07/08/17 [History] Hydrochlorothiazide [Hydrodiuril] 25 mg PO DAILY 03/28/19 [History] Losartan Potassium 100 mg PO DAILY 03/28/19 [History] Metoprolol Succinate [Toprol XL] 100 mg PO DAILY 03/28/19 [History] Venlafaxine HCl ER [Effexor Xr] 150 mg PO DAILY 03/28/19 [History] Follow up Appointment(s)/Referral(s): Tomi Agustin DO [Primary Care Provider] - 1-2 days Aj Posey DO [STAFF PHYSICIAN] - 1 Week Activity/Diet/Wound Care/Special Instructions: Patient may increase activity and diet as tolerated. No heavy lifting or strenuous activity. Patient is to refrain from tub bathing until follow-up and further directed by Dr. Posey. Discharge Disposition: HOME SELF-CARE
[2019-03-29 12:11] VITALS: PULSE 74; RESP 17
--- NOTE | 2019-03-29 12:21 | CONS ---
CONSULTATION Mr. Chauhan is a 73-year-old gentleman who is seen for cardiac evaluation. Patient's medical records reviewed. This patient was recently found to have a large abdominal aortic aneurysm which was measuring about 9.7 cm and he underwent a stent graft placement. Patient has a history of stable coronary artery disease with a prior history of stenting. The patient was noticed to have some bradycardia during and after the procedure, but he is asymptomatic. Patient denies any history of dizziness, lightheadedness, or syncope. PAST MEDICAL HISTORY: Includes history of coronary artery disease, prior history of a stent, hypertension, myocardial infarction, prostate cancer, bilateral knee surgery, orthopedic surgery. HOME MEDICATIONS: Patient's home medications include Xanax, Lipitor, Lasix, Flomax, HydroDIURIL, Toprol, and Effexor. PHYSICAL EXAMINATION: At present reveals a 73-year-old gentleman who does not appear to be in any acute distress. The heart rate is now 60 per minute. HEENT: Examination is negative. NECK: Supple. There is no increase in jugular venous pressure. Both the carotid pulses are felt. There is no bruit. CHEST: Symmetrical. HEART: The PMI is not felt. First and second heart sounds are normal. There is no evidence of any murmur. LUNGS: Clinically clear to auscultation and percussion. ABDOMEN: Negative. EXTREMITIES: Peripheral pulsations are 2+. FINAL IMPRESSION: 1. This patient is status post stent graft for large abdominal aortic aneurysm. 2. Stable coronary artery disease. 3. History of hypertension. RECOMMENDATIONS: Patient is stable cardiac palacio. Patient will be discharged home on the same home medications. MMODL / IJN: [id number] /
--- NOTE | 2019-03-29 12:52 | CDI ---
Documentation Clarification Form Date: 03/29/2019 12:23:03 PM From: Mare Gonzales RN CCDS Admit Date: 03/28/2019 11:30:00 AM Patient Name: Avel Chauhan Visit Number: [id number] Discharge Date: ATTENTION: The Clinical Documentation Specialists (CDI) and [facility] Coding Staff appreciate your assistance in clarifying documentation. Please respond to the clarification below the line at the bottom and electronically sign. The CDI & [facility] Coding staff will review the response and follow-up if needed. Please note: Queries are made part of the Legal Health Record. If you have any questions, please contact the author of this message via ITS. Dr. Jack Buckner Urine retention postoperative history of prostate cancer. is documented in your procedure note 03/28/2019 Urine retention postoperative, inability to pass a catheter. Is documented in your consult 03/12/2019 Patients Admitting Diagnosis: Expanding AAA Post-Operative Diagnosis: Urethral Stricture Procedure performed: Dilation of urethral stricture with filiforms and followers, difficult placement of 14 coude-tip cath. History/Risk Factors: 73-year-old male with a AAA approximately 9cm presents to the ED with worsening abdominal. Medical History Prostate Cancer may have been treated with radium seeds, Clinical Indicators: Per your consult 03/28/2019 The nursing staff attempted to place an intraoperative haley but were unable to do so. Several attempts were made. I was asked to see the patient. The patient is sedated in the history is take from the chart. Apparently there is a history of prostate cancer and he may been treated with radium seeds. He otherwise does not give him any urinary tract history of. Medical management consult 03/28/2019 Urethral stricture, now with a coude catheter. Bladder outflow obstruction requiring Flomax Treatment: Coude-tip catheter placement In order to accurately reflect this patients severity of illness, please clarify if the post-operative diagnosis is: * Difficult Catheter insertion due to comorbid conditions (specify) * Post-operative urine retention with Catheter placement due to (specify) * Other, please specify ____ * Unable to determine (Last Revision: July 2018)post operative urine retention with difficult catheter placement due to urethral stricture from radiation therapy for prostate cancer MTDD
--- NOTE | 2019-03-29 20:05 | P.OP ---
Date of Procedure: 03/28/19 Preoperative Diagnosis: Symptomatic 9.3cm infrarenal AAA Postoperative Diagnosis: Same Procedure(s) Performed: 1. Endovascular aortic repair with ovation graft 2. Ultrasound-guided bilateral common femoralrtery access Anesthesia: ILANA Surgeon: Aj Posey [place] [employer] Tier #1: Sonali Suero Estimated Blood Loss (ml): 20 Pathology: none sent Condition: stable Disposition: PACU Indications for Procedure: 73-year-old male with history of 7cm abdominal aortic aneurysm Presented to the emergency department after having recent CT angiogram demonstrating increased size aneurysm to 9.3 cm. Upon his evaluation in the emergency department he was having pain located in his flank which he states has been worsening. Due to the increased size as well as his pain it was determined he would require urgent repair. He presents today for EVAR. Description of Procedure: After written and informed consent was obtained from the patient and all risks, benefits and complications were discussed the patient was brought to the sleep lab technician and laid in a supine position. The area of the abdomen and groins were prepped and draped in the usual sterile fashion after appropriate anesthesia was administered per the anesthesiologist. Time out was performed in usual fashion and patient was given antibiotics prior to any incisions. Utilizing ultrasound bilateral common femoral artery access was obtained and 2 Perclose closure devices were placed in each femoral artery followed by 8 Moldovan sheaths. Patient was then administered heparin and followed with serial ACTs. Glidewire was placed into the aorta followed by pigtail catheter and aortogram was obtain demonstrating large infrarenal AAA without any signs of rupture. Lunderquist wire was then placed through the right femora sheath into the descending thoracic aorta. A 26 mm ovation graft aortic body was then placed just beneath the renal arteries. Main body was deployed in normal fashion and polymer was injected under fluoroscopy. Contralateral limb access was obtained utilizing the integrated crossover lumen by snaring an 014 glidewire advantage wire. Once contralateral limb was accessed a guide catheter was placed and 014 wire was exchanged for a stiff Lunderquist wire and retrograde angiogram was obtained for measurement of the contralateral limb. A [id number] iliac limb was then deployed for the contralateral limb. Attention was then placed back to the main body and deployment was completed and nose cone was retracted. Balloon angioplasty was then performed at the polymer to mold to the aorta. Balloon was removed and pigtail catheter was placed up the ipsilateral limb and retrograde angiogram was obtained for measurements. An [id number] ipsi limb was then deployed in usual fashion. Two [id number] balloons were then placed up both limbs and kissing ang ioplasty was performed throughout the limbs. Final angiogram was then obtained via a pigtail catheter after removal of the balloons. Aneurysm was excluded and a late type II endoleak was visualized but no Type I or III endoleak. Multiple views were obtained verifying this and the procedure was concluded. All guidewires, catheters and sheaths were removed and perclose devices were secured for hemostasis. Dressings were then placed. Patient tolerated the procedure well and had palpable distal pulses at the conclusion of the procedure. The patient was then sent to the PACU for recovery.
--- NOTE | 2019-03-30 00:25 | P.PN ---
Progress Note - Text Progress Note Date: 03/29/19 - Chief Complaint Abdominal pain - History of Present Illness Consultation: This is a pleasant 73-year-old patient of Dr. Anns. Patient had a computed tomography scan of the nursing home he was told he is a 9 cm abdominal aortic aneurysm. Patient's chronic abdominal pain. Pain did worsen yesterday and decided to present to the ER. It was radiating to the back Dr. Posey was consulted and patient was taken to the or. Endovascular's stent was placed. In the postoperative time there was difficulty getting her Suero catheter due to the patient and Dr. Le was consulted. Vision is of a urethral stricture" in character was placed. Postprocedure laying in bed comfortable. Blood pressure has been maintained. Patient has pressure dressing of both the groins. Chronic stable medical conditions include coronary artery disease with stent, DVT, hypertension, hyperlipidemia, history of prostate cancer. Patient rather tired right now crusting. No chest pain or shortness of breath. today-sitting up in a chair. Did tolerate his diet. No abdominal pain. Suero catheter in place. Breathing is stable. Review of systems: Was done for constitutional, cardiovascular, GI, pulmonary. relevant finding as above current medications reviewed in today's electronic records Physical examination: VITAL SIGNS: 98.8, 68, 24, 135/59, 94% on 2 L GENERAL: sitting up in a chair, comfortable EYES: Pupils equal. Conjunctiva normal. HEENT: External appearance of nose and ears normal, oral cavity grossly normal. NECK: JVD unable to assess; masses not palpable. HEART: First and second heart sounds are normal; no edema. LUNGS:[ Respiratory rate normal; decreased breath sounds. ABDOMEN: Soft, nontender, liver spleen not palpable, no masses palpable, dressing in both the groins, Suero catheter in place. PSYCH: AO 3, mood and affect normal INVESTIGATIONS, reviewed in the clinical context: White count 12.1 hemoglobin 13.2 potassium 3.8 creatinine 1.25 Previous testing White count 10.3 hemoglobin 14.1 potassium 3.3 creatinine 1.3 bun EKG tracing personally reviewed by me-normal sinus rhythm with nonspecific T- wave changes Assessment: -Abdominal aortic aneurysm 9.7 cm with worsening abdominal pain, followed by endovascular stent -Urethral stricture, now with a coud catheter -Coronary artery disease with stent -Essential hypertension -Hyperlipidemia -Colonic diverticulosis, asymptomatic -Depression and anxiety not otherwise specified -Bladder outflow obstruction requiring Flomax Plan: stable. Continue current medication treatment plan. Follow-up with PCP on discharge. Thank you Dr. Posey.
== END 2019-03-29 15:27 | disposition home health service (06) | DRG 269 ==
LOC: EC 09:06 → 3SCARD 11:30 → 2SICU 12:32
PROVIDERS: ADMIT Surgery; ATTEND Surgery
PROC: 0T7D7ZZ Dilation of Urethra, Via Natural or Artificial Opening (ICD-10-PCS; 2019-03-28)
PROC: 0T9B70Z Drainage of Bladder with Drainage Device, Via Natural or Artificial Opening (ICD-10-PCS; 2019-03-28)
PROC: 04V03DZ Restriction of Abdominal Aorta with Intraluminal Device, Percutaneous Approach (ICD-10-PCS; principal; 2019-03-28 10:15)
DX: I71.4 Abdominal aortic aneurysm, without rupture (principal); E78.5 Hyperlipidemia, unspecified; G89.29 Other chronic pain; I25.2 Old myocardial infarction; I10 Essential (primary) hypertension; I25.10 Atherosclerotic heart disease of native coronary artery without angina pectoris; R00.1 Bradycardia, unspecified; G51.0 Bell's palsy; R33.9 Retention of urine, unspecified; N35.919 Unspecified urethral stricture, male, unspecified site; N32.0 Bladder-neck obstruction; K57.30 Diverticulosis of large intestine without perforation or abscess without bleeding; F41.9 Anxiety disorder, unspecified; F32.9 Major depressive disorder, single episode, unspecified; R68.0 Hypothermia, not associated with low environmental temperature; Z79.899 Other long term (current) drug therapy; Z87.891 Personal history of nicotine dependence; Z86.718 Personal history of other venous thrombosis and embolism; Z85.46 Personal history of malignant neoplasm of prostate; Z95.5 Presence of coronary angioplasty implant and graft; Z98.890 Other specified postprocedural states; Z92.3 Personal history of irradiation; Z80.9 Family history of malignant neoplasm, unspecified
CPT/HCPCS: 34705; 36415; 71045; 80048; 80053; 81003; 82150; 83690; 85025; 85347; 85610; 85730; 86850; 86900; 86901; 93005; 96361; 96374; 96375; 99285

== ENCOUNTER → 2020-11-04 | Outpatient (CLI) | payer MEDICARE, OTHER | END | disposition home or self-care (01) | LOC: RADCTMAIN 13:25 | PROVIDERS: ATTEND Surgery | DX: Z53.9 Procedure and treatment not carried out, unspecified reason (principal) | CPT/HCPCS: 82565; 84520 ==

== ENCOUNTER → 2020-11-15 | Outpatient (CLI) | payer MEDICARE, OTHER ==
[~2020-11-15] MED LIST changes: -HYDROmorphone 1 MG/ML 1 ML SYRINGE IVP STA; -ONDANSETRON 4 MG/2 ML VIAL IVP STA; +SODIUM CHLORIDE 0.9% 1,000 ML IV SCH; -SODIUM CHLORIDE 0.9% 1,000 ML IV STA; +SODIUM CHLORIDE 0.9% 500 ML 500 ML in EMPTY BAG 1 BAG IV PRN
== END ==
LOC: PROCWHC3 12:08
PROVIDERS: ATTEND Surgery
DX: I71.4 Abdominal aortic aneurysm, without rupture (principal); I74.3 Embolism and thrombosis of arteries of the lower extremities; Z87.891 Personal history of nicotine dependence
CPT/HCPCS: 82565; 84520; 96360

== ENCOUNTER → 2020-11-15 | Outpatient (CLI) | payer MEDICARE, OTHER ==
--- NOTE | 2020-11-17 21:03 | CT ---
EXAMINATION TYPE: CT angio abd aorta w/Runoff DATE OF EXAM: 11/15/2020 COMPARISON: 05/22/2019 INDICATION: Claudication. Pt was hydrated before exam. Labs post hydration 52, 1.5, 16 DLP: 3078.4 mGycm, Automated exposure control for dose reduction was used. CONTRAST: 80 mL of Isovue 370. Study performed without Oral Contrast TECHNIQUE: Axial images were obtained from above the diaphragm to the pubic rami in the axial plane a t 5 mm thick sections. Reconstructed images are reviewed on the computer in the coronal plane. 3-D reconstructed images performed on a separate computer performed by the technologist. Images were obta ined from the diaphragm to the lower extremities with MIP imaging. FINDINGS: Limited CT sections are obtained the lung bases. The lung bases are clear. CT ABDOMEN: Liver: There is a 4.4 cm cyst within the left lobe liver measuring 9 Hounsfield units. There is a sub tle hypodensity within the inferior right lobe liver too small to characterize similar hypodensities in the periphery of the right mid liver and more typical appearing cyst is in the superior right lobe measuring 1.1 cm and 24 Hounsfield units. Spleen: Post contrast imaging to medial cysts are present within the spleen. Pancreas: Fatty infiltration of the pancreas. Adrenal glands: The adrenal glands are normal. Gallbladder: Normal Kidneys: No masses are evident. No hydronephrosis is present. No cysts are present. There is a 4.3 cm cyst in the anterior right kidney. A superior left renal cyst measures 3.3 cm and is adjacent to the lateral 5.9 cm cyst. A 2.3 cyst on the superior medial posterior kidney. Aorta: Vascular calcification is within the aorta. Aortic stent with 2 limbs is present within the p atient's aneurysm aneurysm measures 10.0 cm. Runoff:The right iliac stent limb is obstructed. Collateral flow fills the internal and external righ t iliac vessels. Left iliac vessels are patent. Plaquing is present within the superficial femoral ar teries with areas of moderate stenosis. The distal left superficial femoral artery is obstructed. Col lateral flow fills the popliteal artery on the left. Plaquing causes narrowing within the popliteal a rtery. Trifurcation vessels are poorly visualized but is anterior tibial artery is occluded within it s proximal portion. Peroneal artery and posterior tibial arteries appear to be faintly visualized tub e above the ankle. Discrete contrast within vessels within the ankle on the left is not identified. T here are areas of moderate to severe narrowing within the distal right superficial femoral artery. Th e popliteal artery appears to have areas of focal stenosis. Trifurcation vessels appear faint but pre sent. No ascites. The nonvisualized in the mid calf region. No contrast-filled vessels within the dis haroon right trifurcation vessels is identified. 3 reconstructed images are performed from the lower extremity and within the aorta and iliac vessels. Mid left superficial femoral artery stenosis is noted. The areas of stenosis or obstruction identifi ed on source images is not identified on the reconstructed images. This could be related to calcifica tion within a vessel. Inferior vena cava: Normal. CT PELVIS: Loops of bowel within the abdomen and pelvis are normal. The study is performed without oral cont rast limiting bowel evaluation. Appendix: Normal as visualized. Urinary bladder: Normal. Genitourinary structures: Multiple brachytherapy seeds are within the prostate. Osseous structures: No suspicious lytic or sclerotic lesions. IMPRESSIONS: 1. Severe stenosis and/or obstruction of the mid left superficial femoral artery. 2. Poor visualization of distal trifurcation vessels although these extend to nearly the ankle on the reconstructed images. 3. Source images suggest complete obstruction of the right iliac limb stent with reconstitution at th e internal/external iliac junction. 4. Apparent obstruction of the distal superficial femoral artery at the obturator canal with reconsti tution of the popliteal artery above the joint space. 5. Multiple cysts within the liver and spleen
== END | disposition home or self-care (01) ==
LOC: RADCTMAIN 13:59
PROVIDERS: ATTEND Surgery
DX: I70.213 Atherosclerosis of native arteries of extremities with intermittent claudication, bilateral legs (principal); K76.89 Other specified diseases of liver; D73.4 Cyst of spleen
CPT/HCPCS: 75635; Q9967

== ENCOUNTER 2021-08-14 09:50 | Day surgery (SDC) | payer MEDICARE, OTHER ==
[2021-08-12 12:52] VITALS: BMI 35.9
--- NOTE | 2021-08-14 08:09 | P.GSHP ---
History of Present Illness H&P Date: 08/14/21 CHIEF COMPLAINT: Colon screen HISTORY OF PRESENT ILLNESS: The patient is a 76-year-old male who presents for colon screen. Lower endoscopy was offered for further evaluation and management. PAST MEDICAL HISTORY: Please see list. PAST SURGICAL HISTORY: Please see list. MEDICATIONS: Please see list. ALLERGIES: Please see list. SOCIAL HISTORY: No illicit drug use FAMILY HISTORY: No reports of Crohn disease or ulcerative colitis. REVIEW OF ORGAN SYSTEMS: CONSTITUTIONAL: No reports of fevers or chills. PHYSICAL EXAM: VITAL SIGNS: Stable GENERAL: Well-developed pleasant in no acute distress. HEENT: No scleral icterus. Extraocular movements grossly intact. Moist buccal mucosa. NECK: Supple without lymphadenopathy. CHEST: Unlabored respirations. Equal bilateral excursions. CARDIOVASCULAR: Regular rate and rhythm. Distal 2+ pulses. ABDOMEN: Soft, nontender, nondistended. MUSCULOSKELETAL: No clubbing, cyanosis, or edema. ASSESSMENT: 1. Colon screen. PLAN: 1. Recommend proceeding with a lower endoscopy Past Medical History Past Medical History: Coronary Artery Disease (CAD), Cancer, Deep Vein Thrombosis (DVT), Hyperlipidemia, Hypertension, Myocardial Infarction ([place]), Prostate Disorder Additional Past Medical History / Comment(s): HX PROSTATE CA. ANEURYSM Last Myocardial Infarction Date:: 1997 History of Any Multi-Drug Resistant Organisms: None Reported Past Surgical History: Heart Catheterization With Stent, Orthopedic Surgery Additional Past Surgical History / Comment(s): ALEJANDRINA KNEE SCOPES., SX FOR ANEURSYM 2020, COLONOSOCPY, EPIDURAL SHOTS Past Anesthesia/Blood Transfusion Reactions: No Reported Reaction Date of Last Stent Placement:: 1997 Smoking Status: Former smoker - Past Family History Father Family Medical History: Cancer Medications and Allergies Home Medications Medication Instructions Recorded Confirmed Type ALPRAZolam [Xanax] 0.25 mg PO TID 07/08/17 08/12/21 History Atorvastatin [Lipitor] 20 mg PO QAM 07/08/17 08/12/21 History Furosemide [Lasix] 40 mg PO DAILY 07/08/17 08/12/21 History Tamsulosin HCl [Flomax] 0.4 mg PO HS 07/08/17 08/12/21 History Metoprolol Succinate [Toprol XL] 100 mg PO DAILY 03/28/19 08/12/21 History Venlafaxine HCl ER [Effexor Xr] 150 mg PO DAILY 03/28/19 08/12/21 History Candesartan [Atacand] 32 mg PO DAILY 11/15/20 08/12/21 History Methocarbamol [Robaxin-750] 750 mg PO BID 11/15/20 08/12/21 History busPIRone HCL 10 mg PO DAILY 11/15/20 08/12/21 History Allergies Allergy/AdvReac Type Severity Reaction Status Date / Time No Known Allergies Allergy Verified 08/12/21 12:40
[~2021-08-14 09:50] MED LIST changes: +LACTATED RINGERS 1,000 ML IV SCH; +LIDOCAINE 1% (10MG/ML) FOR IV START INTRADERMA PRN; -SODIUM CHLORIDE 0.9% 1,000 ML IV SCH; -SODIUM CHLORIDE 0.9% 500 ML 500 ML in EMPTY BAG 1 BAG IV PRN
[2021-08-14 10:29] VITALS: RESP 16; TEMP 97.5
[2021-08-14] MEDS ORDERED: PROPOFOL 10 MG/ML 20 ML VIAL IV ONE (10:54)
--- NOTE | 2021-08-14 11:57 | P.PCN ---
Date of Procedure: 08/14/21 Description of Procedure: PREOPERATIVE DIAGNOSIS: Personal history of colon polyps Colonoscopy screening POSTOPERATIVE DIAGNOSIS: Cecal mass Tubular adenoma ascending colon Tubular adenoma hepatic flexure Tubular adenoma transverse colon Sigmoid diverticulosis Internal hemorrhoids, grade 3 OPERATION: Colonoscopy to the ileocecal valve and appendiceal orifice, cecum Colonoscopy with hot snare polypectomy Colonoscopy with cold forceps biopsy Colonoscopy with injection of Mary ink, 4 mL SURGEON: Renetta Vora MD. ANESTHESIA: MAC. INDICATIONS: The patient is an 76-year-old male who presents personal history of colon polyps. Last colonoscopy 5 years. Benefits and risks were described and informed consent was obtained. DESCRIPTION OF PROCEDURE: The patient had undergone Sutab prep. The patient had been brought into the operating room and laid in the left lateral decubitus position. After adequate intravenous sedation, the rectum was examined with 2% lidocaine jelly. The prostate was unremarkable. External hemorrhoids were encountered. The rectal tone was within normal limits. No lesions were palpated in the rectal vault. An Olympus colonoscope was advanced until the cecum, ileocecal valve and appendiceal orifice were clearly viewed. The prep was fair. Sigmoid diverticul osis was encountered. Colonic polyps were found and removed. Large cecal mass over 5 cm was identified unable to resect due to size. No evidence of focal colitis was found. Retroflexion of the scope demonstrated grade 3 internal hemorrhoids without active bleeding or inflammation. The colon was desufflated. The patient had tolerated the procedure well. Withdrawal time was over 6 minutes. FINDINGS: Aronchick preparation quality scale 3 (1-5) Internal hemorrhoids, grade 3 External hemorrhoids, grade 3. Sigmoid diverticulosis Removal of over 30 polyps: - Snare polypectomy of hepatic flexure x 8, 10 to 15 mm tubulovillous adenoma polyp. - Snare polypectomy ascending colon x 9, 15 to 20 mm flat villous adenoma polyp. - Snare polypectomy proximal transverse colon x 10, 12 to 15 mm flat villous adenoma polyp. - Snare polypectomy distal transverse x 6, 8 to 15 mm flat villous adenoma polyp. - Snare polypectomy incomplete resection of over 5 cm large cecal mass Injection of Mary ink 4 mL@5 cm cecal mass, polyploid incorporating over 50% of the lumen No focal colitis. RECOMMENDATIONS: 1. Cecal resection advised due to large cecal mass, unresectable 2. Repeat colonoscopy in 3 months for poor prep and over 30 polyps resected Plan - Discharge Summary Discharge Rx Participant: No New Discharge Prescriptions: Continue Furosemide [Lasix] 40 mg PO DAILY ALPRAZolam [Xanax] 0.25 mg PO TID Atorvastatin [Lipitor] 20 mg PO QAM Tamsulosin HCl [Flomax] 0.4 mg PO HS Metoprolol Succinate [Toprol XL] 100 mg PO DAILY Venlafaxine HCl ER [Effexor XR] 150 mg PO DAILY Methocarbamol [Robaxin-750] 750 mg PO BID Candesartan [Atacand] 32 mg PO DAILY busPIRone HCL 10 mg PO DAILY Discharge Medication List ALPRAZolam [Xanax] 0.25 mg PO TID 07/08/17 [History] Atorvastatin [Lipitor] 20 mg PO QAM 07/08/17 [History] Furosemide [Lasix] 40 mg PO DAILY 07/08/17 [History] Tamsulosin HCl [Flomax] 0.4 mg PO HS 07/08/17 [History] Metoprolol Succinate [Toprol XL] 100 mg PO DAILY 03/28/19 [History] Venlafaxine HCl ER [Effexor XR] 150 mg PO DAILY 03/28/19 [History] Candesartan [Atacand] 32 mg PO DAILY 11/15/20 [History] Methocarbamol [Robaxin-750] 750 mg PO BID 11/15/20 [History] busPIRone HCL 10 mg PO DAILY 11/15/20 [History] Follow up Appointment(s)/Referral(s): Renetta Vora MD [STAFF PHYSICIAN] - 08/19/21 Patient Instructions/Handouts: Colorectal Polyps (GEN), Diverticulosis Diet (GEN), Diverticulosis (DC), *Surgery [facility] - (Anesthesia) Endoscopy Discharge Instructions Activity/Diet/Wound Care/Special Instructions: Large cecal tumor, needs resection. Please follow up in the office. Over 30 polyps removed Discharge Disposition: HOME SELF-CARE
[2021-08-14 12:28] VITALS: BP 159/96; PULSE 61
== END 2021-08-14 12:52 | disposition home or self-care (01) ==
LOC: ORWHC2ENDO 09:50
PROVIDERS: ATTEND Surgery Plastic and Reconstructive Surgery
DX: K57.30 Diverticulosis of large intestine without perforation or abscess without bleeding (principal); K64.8 Other hemorrhoids; D12.0 Benign neoplasm of cecum; D12.2 Benign neoplasm of ascending colon; D12.3 Benign neoplasm of transverse colon; E78.5 Hyperlipidemia, unspecified; I10 Essential (primary) hypertension; I25.10 Atherosclerotic heart disease of native coronary artery without angina pectoris; F41.9 Anxiety disorder, unspecified; I25.2 Old myocardial infarction; Z79.899 Other long term (current) drug therapy; Z85.46 Personal history of malignant neoplasm of prostate; Z86.718 Personal history of other venous thrombosis and embolism; Z87.891 Personal history of nicotine dependence
CPT/HCPCS: 45385; 45381; 88305; J2704

== ENCOUNTER → 2021-10-15 | Outpatient (CLI) | payer MEDICARE, OTHER ==
[2021-10-15 18:17] LABS: HCT 40.8 % (39.6-50.0); HGB 12.7 g/dL (13.0-17.0); MCH 26.1 pg (27.0-32.0); MCHC 31.1 g/dL (32.0-37.0); MCV 83.8 fL (80.0-97.0); Mean Platelet Volume 10.3 fL (9.5-12.2); NRBC Per 100 WBC 0 /100 WBCS (0.0-0.0); Platelet Count 268 X 10*3/uL (140-440); RBC 4.87 X 10*6/uL (4.40-5.60); WBC 10.82 X 10*3/uL (4.50-10.00)
[2021-10-15 18:26] LABS: African American GFR (CKD) 47.8 (60.0-200.0); Albumin 3.9 g/dL (3.8-4.9); Albumin/Globulin Ratio 1.56 (1.60-3.17); Anion Gap 13.6 mmol/L (10.00-18.00); BUN/Creat Ratio 9.75 Ratio (12.00-20.00); Blood Urea Nitrogen 15.6 mg/dL (9.0-27.0); Calcium 9.2 mg/dL (8.7-10.3); Carbon Dioxide 28.4 mmol/L (20.0-27.5); Globulin 2.5 g/dL (1.6-3.3); Non-African American GFR(CKD) 41.2 (60.0-200.0); Potassium 3.7 mmol/L (3.5-5.5); Total Bilirubin 0.6 mg/dL (0.30-1.20); Total Protein 6.4 g/dL (6.2-8.2)
== END | disposition home or self-care (01) ==
LOC: LABWHC1 12:04
PROVIDERS: ATTEND Surgery Plastic and Reconstructive Surgery
DX: Z01.812 Encounter for preprocedural laboratory examination (principal)
CPT/HCPCS: 36415; 80053; 85027

== ENCOUNTER 2021-10-16 10:11 | Inpatient (IN) | payer MEDICARE, OTHER ==
[2021-10-15 10:27] VITALS: BMI 35.9
--- NOTE | 2021-10-16 08:20 | P.GSHP ---
History of Present Illness H&P Date: 10/16/21 CHIEF COMPLAINT: Neoplasm of the cecum HISTORY OF PRESENT ILLNESS: The patient is a 76-year-old male who presents with large neoplasm of the cecum including multiple adenomas of the colon, over 30+ resected. He presents for excision of large cecal adenoma. Patient underwent multiple clearances including renal, cardiac, pulmonary. PAST MEDICAL HISTORY: Please see list. PAST SURGICAL HISTORY: Please see list. MEDICATIONS: Please see list. ALLERGIES: Please see list. SOCIAL HISTORY: No illicit drug use FAMILY HISTORY: No reports of Crohn disease or ulcerative colitis. REVIEW OF ORGAN SYSTEMS: CONSTITUTIONAL: Denies any fever or chills. HEENT: Denies any trouble with vision or nosebleeds. No difficulty swallowing. She is hard of hearing. LYMPHATIC: The patient denies any lumps and bumps around the neck. ENDOCRINE: Denies any thyroid disorders. RESPIRATORY: Denies pneumonia. Denies any troubles with breathing or dyspnea on exertion. CARDIOVASCULAR: Hypertensive heart disease, congestive heart failure. He has cardiac clearance. GASTROINTESTINAL: Multiple colonic adenomas, over 35. GENITOURINARY: Has increased urinary frequency. He has renal insufficiency. MUSCULOSKELETAL: Has back pain, stiffness, joint arthritis. NEUROLOGIC: Denies any numbness or tingling along the distal extremities. No seizure disorders or headaches. PSYCHIATRIC: Denies depression or suidical ideation. HEMATOLOGIC: Denies any abnormal bleeding or bruising. PHYSICAL EXAM: VITAL SIGNS: Stable GENERAL: Well-developed pleasant in no acute distress. HEENT: No scleral icterus. Extraocular movements grossly intact. Moist buccal mucosa. NECK: Supple without lymphadenopathy. CHEST: Unlabored respirations. Equal bilateral excursions. CARDIOVASCULAR: Regular rate and rhythm. Distal 2+ pulses. ABDOMEN: Soft, nontender, nondistended. MUSCULOSKELETAL: No clubbing, cyanosis, or edema. NERUO: Regular 2-12 grossly intact. PSYCH: Alert and oriented to person place and time. STUDIES: CT of the abdomen and pelvis reviewed demonstrates neoplasm of the cecum. No metastatic process. This is my independent interpretation. ASSESSMENT: 1. Large neoplasm of the cecum 2. Multiple tubular adenomas, over 30+ 3. Hypertensive heart disease with congestive heart failure 4. Renal insufficiency 5. Morbid obesity due to excess calories, BMI 35.9 PLAN: 1. Benefits and risks of surgical intervention for cecal resection described. 2. Colonoscopy described for resection of residual adenomas of the colon. 3. DVT prophylaxis. 4. Antibiotic prophylaxis. 5. Patient is elevated risk due to multiple comorbidities. Past Medical History Past Medical History: Coronary Artery Disease (CAD), Cancer, Deep Vein Thrombosis (DVT), Hyperlipidemia, Hypertension, Myocardial Infarction ([place]), Prostate Disorder Additional Past Medical History / Comment(s): HX PROSTATE CA., NEW DX COLON CANCER Last Myocardial Infarction Date:: 1997 History of Any Multi-Drug Resistant Organisms: None Reported Past Surgical History: Heart Catheterization With Stent, Orthopedic Surgery Additional Past Surgical History / Comment(s): ALEJANDRINA KNEE SCOPES, colonoscopy Past Anesthesia/Blood Transfusion Reactions: No Reported Reaction Date of Last Stent Placement:: 1997 Smoking Status: Former smoker - Past Family History Father Family Medical History: Cancer Medications and Allergies Home Medications Medication Instructions Recorded Confirmed Type ALPRAZolam [Xanax] 0.25 mg PO TID 07/08/17 10/15/21 History Atorvastatin [Lipitor] 20 mg PO QAM 07/08/17 10/15/21 History Furosemide [Lasix] 40 mg PO DAILY 07/08/17 10/15/21 History Tamsulosin HCl [Flomax] 0.4 mg PO HS 07/08/17 10/15/21 History Metoprolol Succinate [Toprol XL] 100 mg PO DAILY 03/28/19 10/15/21 History Venlafaxine HCl ER [Effexor XR] 150 mg PO DAILY 03/28/19 10/15/21 History Candesartan [Atacand] 32 mg PO DAILY 11/15/20 10/15/21 History busPIRone HCL 10 mg PO DAILY 11/15/20 10/15/21 History methocarbamoL [Robaxin-750] 750 mg PO BID 11/15/20 10/15/21 History Allergies Allergy/AdvReac Type Severity Reaction Status Date / Time No Known Allergies Allergy Verified 10/15/21 09:30
[~2021-10-16 10:11] MED LIST changes: +Antibiotics per Pharmacy 1 EACH MISC MISCELLANE PRN; +HEPARIN SODIUM,PORCINE/PF 5,000 UNIT/0.5 ML SYRINGE SQ PRN; -LACTATED RINGERS 1,000 ML IV SCH; -LIDOCAINE 1% (10MG/ML) FOR IV START INTRADERMA PRN; +PEG 3350 (420 GM/BTL) + LYTES 4,000 ML BOTTLE PO ONE
[2021-10-16] MEDS: LACTATED RINGERS 1,000 ML IV SCH (10:35)
[2021-10-16 10:56] LABS: Basophils % (A) 0 %; Eosinophils # (A) 0.3 k/uL (0-0.7); Eosinophils % (A) 3 %; HGB 13.4 gm/dL (13.0-17.5); Lymphocytes # (A) 1.6 k/uL (1.0-4.8); Lymphocytes % (A) 13 %; MCH 27.7 pg (25.0-35.0); MCHC 33.4 g/dL (31.0-37.0); Mean Platelet Volume 7.6; Monocytes # (A) 0.8 k/uL (0-1.0); Monocytes % (A) 6 %; Neutrophils # (A) 9.5 k/uL (1.3-7.7); Neutrophils % (A) 77 %; Platelet Count 288 k/uL (150-450); RBC 4.82 m/uL (4.30-5.90); RDW 14.9 % (11.5-15.5); WBC 12.3 k/uL (3.8-10.6)
[2021-10-16] MEDS ORDERED: fentaNYL (PF) 50 MCG/ML 2 ML AMP ONE (10:56)
[2021-10-16] MEDS ORDERED: PROPOFOL 10 MG/ML 20 ML VIAL IV ONE (10:56)
[2021-10-16] MEDS ORDERED: MIDAZOLAM 2 MG/2 ML VIAL ONE (10:56)
[2021-10-16] MEDS ORDERED: LIDOCAINE 2% INJ 20 MG/ML (2 ML VIAL) ONE (10:56)
[2021-10-16 11:13] LABS: Total Bilirubin 1.2 mg/dL (0.2-1.3)
[2021-10-16 11:17] LABS: Potassium 4.7 mmol/L (3.5-5.1); Total Protein 7.3 g/dL (6.3-8.2)
[2021-10-16] MEDS ORDERED: SODIUM CHLORIDE 0.9% 1,000 ML IV ONE (11:41)
--- NOTE | 2021-10-16 11:49 | P.PCN ---
Date of Procedure: 10/16/21 Description of Procedure: PREOPERATIVE DIAGNOSIS: Personal history of colon polyps Unresectable cecal adenoma POSTOPERATIVE DIAGNOSIS: Personal history of colon polyps Unresectable cecal adenoma Tubular adenoma transverse colon Tubular adenoma descending colon Sigmoid diverticulosis Tumor adenoma sigmoid colon OPERATION: Colonoscopy to the ileocecal valve and appendiceal orifice, cecum Colonoscopy with hot snare polypectomy Colonoscopy with injection of Mary ink, 4 mL, ascending colon SURGEON: Renetta Vora MD. ANESTHESIA: MAC. INDICATIONS: The patient is an 76-year-old male who presents with multiple large tubular adenomas over 30+ resected 2 months ago. He presents for polypectomy including presurgical management. Benefits and risks were described and informed consent was obtained. DESCRIPTION OF PROCEDURE: The patient had undergone Sutab prep. The patient had been brought into the operating room and laid in the left lateral decubitus position. After adequate intravenous sedation, the rectum was examined with 2% lidocaine jelly. The prostate was unremarkable. External hemorrhoids were encountered. The rectal tone was within normal limits. No lesions were palpated in the rectal vault. An Olympus colonoscope was advanced until the cecum, ileocecal valve and appendic eal orifice were clearly viewed. The prep was good. Sigmoid diverticulosis moderate to severe was encountered. Colonic polyps were found and removed. No evidence of focal colitis was found. Large polyploid ulcerative mass identified along the cecum/ascending colon over 4 cm and 60% circumference of the lumen was injected with Mary ink, 4 mL. Retroflexion of the scope demonstrated grade 2 internal hemorrhoids without active bleeding or inflammation. The colon was desufflated. The patient had tolerated the procedure well. Withdrawal time was over 6 minutes. FINDINGS: Aronchick preparation quality scale 2 (1-5) Internal hemorrhoids, grade 2 External hemorrhoids, grade 3 No arteriovenous malformations. Sigmoid diverticulosis, moderate to severe Removal of 8 polyps: - Snare polypectomy 20 cm from the anal verge, 5 mm tubulovillous adenoma polyp, sigmoid colon - Snare polypectomy transverse colon 6, 8 to 10 mm flat villous adenoma polyp, transverse - Snare polypectomy 30 cm from the anal verge, 8 mm flat villous adenoma polyp, descending colon No focal colitis. RECOMMENDATIONS: Given severity of tubular adenomas, over 40+ polyps removed in 2 months, recommend repeat colonoscopy 1 year2022 Resection of cecal large adenoma via surgical means described, right hemicolectomy Plan - Discharge Summary Discharge Rx Participant: No New Discharge Prescriptions: No Action Furosemide [Lasix] 40 mg PO DAILY ALPRAZolam [Xanax] 0.25 mg PO TID Atorvastatin [Lipitor] 20 mg PO QAM Tamsulosin HCl [Flomax] 0.4 mg PO HS Metoprolol Succinate [Toprol XL] 100 mg PO DAILY Venlafaxine HCl ER [Effexor XR] 150 mg PO DAILY methocarbamoL [Robaxin-750] 750 mg PO BID Candesartan [Atacand] 32 mg PO DAILY busPIRone HCL 10 mg PO DAILY Discharge Medication List ALPRAZolam [Xanax] 0.25 mg PO TID 07/08/17 [History] Atorvastatin [Lipitor] 20 mg PO QAM 07/08/17 [History] Furosemide [Lasix] 40 mg PO DAILY 07/08/17 [History] Tamsulosin HCl [Flomax] 0.4 mg PO HS 07/08/17 [History] Metoprolol Succinate [Toprol XL] 100 mg PO DAILY 03/28/19 [History] Venlafaxine HCl ER [Effexor XR] 150 mg PO DAILY 03/28/19 [History] Candesartan [Atacand] 32 mg PO DAILY 11/15/20 [History] busPIRone HCL 10 mg PO DAILY 11/15/20 [History] methocarbamoL [Robaxin-750] 750 mg PO BID 11/15/20 [History]
[2021-10-16] MEDS ORDERED: PATIENTS OWN MED PO SCH (13:00)
[2021-10-16] MEDS ORDERED: NEOMYCIN 500 MG TAB PO SCH (13:00)
[2021-10-16] MEDS ORDERED: metroNIDAZOLE 500 MG TAB PO SCH (13:00)
[2021-10-16] MEDS: SODIUM CHLORIDE 0.9% 1,000 ML IV SCH ×2 (13:12→22:58)
[2021-10-16] MEDS: METRONIDAZOLE 500 MG PO SCH ×3 (13:37→22:58)
[2021-10-16] MEDS: PATIENTS OWN MED PO SCH ×3 (13:37→22:58)
[2021-10-16] MEDS: ALPRAZolam 0.25 MG TAB PO SCH ×2 (18:04→22:58)
[2021-10-16] MEDS: methocarbamoL 750 MG TAB PO SCH (20:37)
[2021-10-16] MEDS: TAMSULOSIN 0.4 MG CAP.ER.24H PO SCH (20:37)
[2021-10-16] MEDS ORDERED: LIDOCAINE 1% (10MG/ML) FOR IV START INTRADERMA PRN (20:49)
[2021-10-16] MEDS ORDERED: DEXAMETHASONE SOD PHOSPHATE 4 MG/ML 1 ML VIAL IV ONE (20:49)
[2021-10-16] MEDS ORDERED: ONDANSETRON 4 MG/2 ML VIAL IVP ONE (20:49)
[2021-10-16] MEDS ORDERED: TEMAZEPAM 15 MG CAP PO ONE (21:00)
[2021-10-17] MEDS ORDERED: HEPARIN SODIUM,PORCINE/PF 5,000 UNIT/0.5 ML SYRINGE SQ PRN (05:00)
[2021-10-17] MEDS ORDERED: metroNIDAZOLE-NS PMX 500 MG in SALINE 1 100ML.BAG IVPB PRN (05:00)
[2021-10-17] MEDS: LACTATED RINGERS 1,000 ML IV SCH ×3 (05:04→19:57)
[2021-10-17] MEDS: SODIUM CHLORIDE 0.9% 1,000 ML IV SCH ×4 (06:12→19:58)
[2021-10-17] MEDS ORDERED: HYDROmorphone 0.5 MG/0.5 ML SYRINGE IVP PRN (07:00)
[2021-10-17] MEDS ORDERED: ACETAMINOPHEN TAB 500 MG TAB PO PRN (07:00)
[2021-10-17] MEDS ORDERED: ALVIMOPAN 12 MG CAPSULE PO PRN (07:00)
[2021-10-17] MEDS: METOPROLOL SUCCINATE (ER) 100 MG TAB.ER.24H PO SCH (09:41)
[2021-10-17] MEDS: FUROSEMIDE 40 MG TAB PO SCH (09:42)
[2021-10-17] MEDS: ALPRAZolam 0.25 MG TAB PO SCH ×3 (09:42→21:22)
[2021-10-17] MEDS: LOSARTAN 50 MG TAB PO SCH (09:42)
[2021-10-17 10:40] LABS: Basophils # (A) 0.02 X 10*3/uL (0.00-0.10); Basophils % (A) 0.2 %; Eosinophils # (A) 0.18 X 10*3/uL (0.04-0.35); HCT 34.2 % (39.6-50.0); HGB 11.2 g/dL (13.0-17.0); Immature Grans, Automated 0.4 %; Lymphocytes % (A) 14.2 %; MCH 26.6 pg (27.0-32.0); MCHC 32.7 g/dL (32.0-37.0); MCV 81.2 fL (80.0-97.0); Monocytes # (A) 0.94 X 10*3/uL (0.20-1.00); Monocytes % (A) 10.3 %; NRBC Per 100 WBC 0 /100 WBCS (0.0-0.0); Neutrophils # (A) 6.66 X 10*3/uL (1.80-7.70); Neutrophils % (A) 72.9 %; Platelet Count 229 X 10*3/uL (140-440); RBC 4.21 X 10*6/uL (4.40-5.60); RDW 14.9 % (11.5-14.5); WBC 9.14 X 10*3/uL (4.50-10.00)
[2021-10-17] MEDS ORDERED: IV FLUID CONTINUATION 250 ML IV ONE (11:02)
[2021-10-17 11:09] LABS: African American GFR (CKD) 61.4 (60.0-200.0); Anion Gap 10.6 mmol/L (10.00-18.00); BUN/Creat Ratio 8.31 Ratio (12.00-20.00); Blood Urea Nitrogen 10.8 mg/dL (9.0-27.0); Calcium 8.3 mg/dL (8.7-10.3); Carbon Dioxide 24.4 mmol/L (20.0-27.5); Potassium 3.5 mmol/L (3.5-5.5)
[2021-10-17 11:25] LABS: INR 1.09 (0.90-1.11); Prothrombin Time 11.9 sec (9.9-11.9)
[2021-10-17] MEDS ORDERED: DEXAMETHASONE SOD PHOSPHATE 4 MG/ML 1 ML VIAL IVP ONE (11:30)
[2021-10-17] MEDS ORDERED: ONDANSETRON 4 MG/2 ML VIAL IVP ONE (11:31)
[2021-10-17] MEDS ORDERED: MIDAZOLAM 2 MG/2 ML VIAL IVP ONE (11:32)
[2021-10-17] MEDS ORDERED: fentaNYL (PF) 50 MCG/ML 2 ML AMP IVP ONE (11:33)
[2021-10-17] MEDS ORDERED: ROPIVACAINE 5 MG/ML 30 ML VIAL ONE (12:04)
[2021-10-17] MEDS ORDERED: PHENYLEPHRINE-0.9% NACL SYG 1,000 MCG/10 ML SYRINGE ONE (12:04)
[2021-10-17] MEDS ORDERED: PROPOFOL 10 MG/ML 20 ML VIAL IV ONE (12:04)
[2021-10-17] MEDS ORDERED: GLYCOPYRROLATE 0.2 MG/ML 2 ML VIAL ONE (12:04)
[2021-10-17] MEDS ORDERED: ROCURONIUM 10 MG/ML (5 ML VIAL) IV ONE (12:04)
[2021-10-17] MEDS ORDERED: SODIUM CHLORIDE 0.9% (PF) 10 ML VIAL ONE (12:04)
[2021-10-17] MEDS ORDERED: ePHEDrine 50 MG/ML 1 ML VIAL ONE (12:04)
[2021-10-17] MEDS ORDERED: SUCCINYLCHOLINE CHLORIDE VIAL 200 MG/10 ML VIAL IV ONE (12:04)
[2021-10-17] MEDS ORDERED: LIDOCAINE 2% INJ 20 MG/ML (2 ML VIAL) ONE (12:04)
[2021-10-17] MEDS ORDERED: NEOSTIGMINE 1 MG/ML 10 ML VIAL ONE (12:04)
[2021-10-17] MEDS ORDERED: WATER FOR INJECTION, STERILE 10 ML VIAL IV ONE (12:04)
[2021-10-17] MEDS ORDERED: BUPIVACAIN-EPI 0.25%-1:200,000 30 ML VIAL SQ ONE (12:09)
--- NOTE | 2021-10-17 12:30 | P.ANPRN ---
Procedure Note - Anesthesia - Nerve Block Performed Bilateral Erector Spinae Time Out Performed: Yes (:29) Date of Procedure: 10/17/21 Procedure Start Time: Procedure Stop Time: :39 Location of Patient: PreOp Indication: Acute Post-Operative Pain, Requested by Surgeon (Dr Og) Sedation Type: Sedate with meaningful contact maintained Preparation: Sterile Prep Position: Prone Catheter: None Needle Types: Pajunk Needle Gauge: 21 Ultrasound used to visualize needle placement: Yes Ultrasound used to observe medication spread: Yes Injectate: 0.5% Ropivacaine (see comment for volume) (15cc + 10cc PF Normal saline each side) Blood Aspirated: No Pain Paresthesia on Injection Noted: No Resistance on Injection: Normal Image Stored and Saved: Yes Events: Uneventful and Well Tolerated
[2021-10-17] MEDS ORDERED: LACTATED RINGERS 1,000 ML IV ONE ×2 (13:15→17:24)
[2021-10-17] MEDS ORDERED: BENZOCAINE/MENTHOL LOZENG 1 EACH LOZENGE MUCOUS MEM PRN (18:14)
[2021-10-17] MEDS ORDERED: ONDANSETRON 4 MG/2 ML VIAL IVP PRN (18:14)
[2021-10-17] MEDS ORDERED: HYDROmorphone PCA 10 MG/50 ML BAG IV PRN (18:17)
[2021-10-17] MEDS ORDERED: NALOXONE 0.4 MG/ML 1 ML VIAL IV PRN (18:17)
--- NOTE | 2021-10-17 18:36 | P.OP ---
Date of Procedure: 10/17/21 Description of Procedure: SURGEON: BRE HATCH MD Preoperative Diagnosis: 1. 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 Chronic iron deficiency anemia 3. Abdominal aortic aneurysm 4. Personal history of prostate cancer 5. Hyperlipidemia 6. Ischemic cardiomyopathy 7. 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 Coronary artery disease 9. Morbid obesity due to excess calories, BMI 35.9 10. Stage III chronic renal insufficiency due to hypertensive heart disease 11. History of multiple adenomatous colon 12. Sigmoid diverticulosis with pandiverticulosis 13. Depressive disorder 14. Generalized anxiety disorder 15. History of myocardial infarction 16. History of deep venous thrombosis Postoperative Diagnosis: 1. 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 Chronic iron deficiency anemia 3. Abdominal aortic aneurysm 4. Personal history of prostate cancer 5. Hyperlipidemia 6. Ischemic cardiomyopathy 7. 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 Coronary artery disease 9. Morbid obesity due to excess calories, BMI 35.9 10. Stage III chronic renal insufficiency due to hypertensive heart disease 11. History of multiple adenomatous colon 12. Sigmoid diverticulosis with pandiverticulosis 13. Depressive disorder 14. Generalized anxiety disorder 15. History of myocardial infarction 16. History of deep venous thrombosis Procedure(s) Performed: 1. Robot-assisted daVinci Xi laparoscopic right hemicolectomy 2. Robot-assisted daVinci Xi laparoscopic enterectomy Anesthesia: GETA, local, regional Estimated Blood Loss (ml): 50 Pathology: other (Right colon, terminal ileum, omentum of the transverse mesocolon) Condition: stable COMPLICATIONS: None. Disposition: [facility] Operative Findings: 1. Tumor involving the cecum including ileocecal valve with proximal resection 5 cm distal section 5 cm 2. Anastomosis proximal to proximal transverse colon 3. No evidence of peritoneal metastatic deposits or liver involvement 4. Incision is made along the upper abdomen with specimen extraction had left upper quadrant 5. Redundant ascending colon with folding 3 adding complexity to the case 6. Dense small bowel mesentery and intra-abdominal fat adding complexity to the case 7. Console time 252 minutes INDICATIONS: The patient is a 76-year-old male with personal history of over 45 polyps resected in 2 months and a large unresectable cecal adenoma. Surgical intervention with colon resection was described in detail. Benefits and risks, including infection, open surgery possibility for additional surgery was discussed at length. Informed consent was obtained. All questions of the patient and family were answered. DESCRIPTION: Earlier the patient had undergone a bowel prep using the enhanced colon recovery program. The patient was transferred to the operating room and placed in supine position. After general anesthetic, a haley catheter was placed. The abdomen was then prepped and draped in standard sterile fashion as Ioban was placed along the abdomen to minimize any contamination of skin floor. After a timeout protocol was performed, attention was then brought to the left upper quadrant whereby a 0 degree 5 mm laparoscopic trocar entry was performed. The abdominal cavity was entered and insufflated to 15 mmHg pressure, which he tolerated well. Diagnostic laparoscopy demonstrated no injury to bowel, viscera or mesentery. No metastatic or peritoneal deposits were identified. The liver was unremarkable. The tumor was identified along the cecum with prior tattooing. Next ports were placed along the left lateral abdominal wall. Two 8 mm trochars were placed along the lower abdomen. Two 12-mm trochars are placed along the upper abdomen after exchanging the 5-mm port. The patient was then placed in Trendelenburg position 7 including 7 left tilt. The robotic da Bertha XI system was primed and docked from the left side of the patient. Using atraumatic graspers and vessel sealer, the robotic system was docked and primed as described. Instruments were interchanged by the veterinary technician assistant including scissors, needle pedicab driver, robotic stapler and vessel sealer. Next, attention was brought to identify the cecum. A stay suture using 0 silk was placed along the anterior serosa of the terminal ileum. The appendix was identified and used as a handle during the case. The terminal ileum and ascending colon mesentery was mobilized using a vessel sealer whereby the colon was marked and tagged. Using robot stapler 60 mm white load, the distal ileum was divided 5 cm proximal to the ileocecal valve. The mesentery of the ascending colon was mobilized towards the midline using a vessel sealer. Highly redundant ascending colon with multiple folds at least 3 adequate complexity to the case. Additionally, very thick small bowel mesentery and colon mesentery was identified. Very dense omentum and mesocolon were adherent to the right upper quadrant requiring additional dissection. The gallbladder was densely adherent and scarred from surrounding tissue including the colon requiring additional dissection. Additional dissection over 3 hours was needed due to findings described above. Additional redundancy was found along the hepatic flexure adding complexity to the case. Next, the proximal transverse colon was divided using the robotic stapler 60 mm blue loads. The rest of the colon mesentery was mobilized using vessel sealer including using blunt dissection. The vascular pedicle of the ileocolic artery was controlled using vessel sealer. The proximal colon and distal ileum was brought in a side to side anastomotic fashion after placing interrupted sutures along the proposed reilly-lumen using 3-0 silk. A colotomy and enterotomy was prepared along both limbs along the antimesenteric border. Next, 60 mm blue stapler loads were fired to create the reilly-lumen. The reilly-lumen was reapproximated using 3-0 silk followed by 60 mm green load for closure of the enterostomy. Redundant small bowel was resected using white staple load involving the terminal ileum. Mild contamination occurred during closure of the enterostomy. All needles were removed from the abdominal cavity. The robot was undocked. I re-scrubbed into the case. Via the 12 mm port of the left upper quadrant, the right colon was removed using a 15-mm Endo Catch bag after widening the skin incision to 4-cm. All sponges were removed from the abdominal cavity. The fascial defect was oversewn using 0 Vicryl and Tuyet's. Next all pneumoperitoneum was evacuated from the abdominal cavity. The 8-mm trocar sites were reapproximated using 4-0 Monocryl in an interrupted subcuticular fashion. Local anesthetic was infiltrated to all wounds for postop analgesia. All incisions were also cleansed with diluted hydrogen peroxide. An Optifoam surgical dressing was placed over the left upper quadrant incision of the colon extraction site. Exofin was applied to the rest of the skin incisions. The patient had tolerated the procedure well. The patient was extubated successfully. Intraoperative photos were reviewed with the patient's family who were overall pleased with the level of care. The patient was transferred to the postanesthesia care unit in stable condition.
[2021-10-17] MEDS: busPIRone HCl 10 MG TAB PO SCH (19:56)
[2021-10-17] MEDS: VENLAFAXINE HCL ER 150 MG CAP PO SCH (19:56)
[2021-10-17] MEDS: methocarbamoL 750 MG TAB PO SCH ×2 (19:56→20:38)
[2021-10-17] MEDS: ATORVASTATIN 20 MG TAB PO SCH (19:56)
[2021-10-17] MEDS: D5-0.45% NACL WITH KCL 20MEQ/L 1,000 ML IV SCH (20:38)
[2021-10-17] MEDS: SIMETHICONE 40 MG/0.6 ML DROPS 2,000 MG/30 ML BOTTLE PO SCH ×2 (20:38→20:53)
[2021-10-17] MEDS: TAMSULOSIN 0.4 MG CAP.ER.24H PO SCH (20:38)
[2021-10-17] MEDS: HYDROmorphone 1 MG/ML 1 ML SYRINGE IVP PRN ×2 (20:40→23:40)
[2021-10-17] MEDS: HEPARIN SODIUM,PORCINE/PF 5,000 UNIT/0.5 ML SYRINGE SQ SCH (21:23)
[2021-10-17] MEDS: metroNIDAZOLE-NS PMX 500 MG in SALINE 1 100ML.BAG IVPB SCH (23:39)
[2021-10-18] MEDS ORDERED: ACETAMINOPHEN TAB 500 MG TAB PO SCH
[2021-10-18] MEDS: ACETAMINOPHEN IV (For NPO) 1,000 MG in EMPTY BAG 1 BAG IVPB SCH ×4 (00:43→17:25)
[2021-10-18] MEDS: LACTATED RINGERS 1,000 ML IV SCH ×3 (00:49→22:59)
[2021-10-18] MEDS: SODIUM CHLORIDE 0.9% 1,000 ML IV SCH ×4 (00:49→22:59)
[2021-10-18] MEDS: HYDROmorphone 1 MG/ML 1 ML SYRINGE IVP PRN ×6 (03:00→20:12)
[2021-10-18] MEDS: metroNIDAZOLE-NS PMX 500 MG in SALINE 1 100ML.BAG IVPB SCH ×4 (06:04→23:18)
[2021-10-18] MEDS: D5-0.45% NACL WITH KCL 20MEQ/L 1,000 ML IV SCH ×3 (06:04→19:23)
[2021-10-18] MEDS: SIMETHICONE 40 MG/0.6 ML DROPS 2,000 MG/30 ML BOTTLE PO SCH ×4 (08:35→20:12)
[2021-10-18] MEDS: ALVIMOPAN 12 MG CAPSULE PO SCH ×2 (08:45→20:12)
[2021-10-18] MEDS: ATORVASTATIN 20 MG TAB PO SCH (08:45)
[2021-10-18] MEDS: VENLAFAXINE HCL ER 150 MG CAP PO SCH (08:45)
[2021-10-18] MEDS: HEPARIN SODIUM,PORCINE/PF 5,000 UNIT/0.5 ML SYRINGE SQ SCH ×2 (08:45→20:12)
[2021-10-18] MEDS: FUROSEMIDE 40 MG TAB PO SCH (08:45)
[2021-10-18] MEDS: METOPROLOL SUCCINATE (ER) 100 MG TAB.ER.24H PO SCH (08:45)
[2021-10-18] MEDS: methocarbamoL 750 MG TAB PO SCH ×2 (08:45→20:12)
[2021-10-18] MEDS: ALPRAZolam 0.25 MG TAB PO SCH ×3 (08:45→21:27)
[2021-10-18] MEDS: LOSARTAN 50 MG TAB PO SCH (08:45)
[2021-10-18] MEDS: busPIRone HCl 10 MG TAB PO SCH (08:45)
--- NOTE | 2021-10-18 09:24 | P.PN ---
Subjective Progress Note Date: 10/18/21 Principal diagnosis: Right-sided colon mass Patient doing well today. Denies abdominal pain. Small amount of flatus. No bowel movement yet. Denies nausea vomiting. Labs are pending from today. Hemodynamically stable. Objective - Vital Signs Vital signs: Vital Signs Temp 97.5 F L 10/18/21 04:44 Pulse 71 10/18/21 08:00 Resp 16 10/18/21 04:44 BP 146/79 10/18/21 08:00 Pulse Ox 99 10/18/21 08:35 FiO2 Intake & Output 10/17/21 10/18/21 10/18/21 18:59 06:59 18:59 Intake Total 2400 1650 Output Total 1160 600 Balance 1240 1050 Intake: IV 2400 Intake, IV Titration 1450 Amount ACETAMINOPHEN IV (For NPO 100 ) 1,000 mg In Empty Bag 1 bag @ 400 mls/hr IVPB Q6HR [facility] Rx#:[id number] D5-0.45% NaCl with KCl 1200 20Meq/l 1,000 ml @ 125 mls/hr IV .Q8H [facility] Rx#: [id number] ceFAZolin 2 gm In Sodium 50 Chloride 0.9% 50 ml @ 100 mls/hr IVPB Q8HR [facility] Rx# :[id number] metroNIDAZOLE-NS PMX 500 100 mg In Saline 1 100ml.bag @ 100 mls/hr IVPB Q6HR [facility] Rx#:[id number] Oral 200 Output: Urine 1110 600 Estimated Blood Loss 50 Other: Voiding Method Indwelling Catheter # Voids 4 # Bowel Movements 4 - Exam Abdomen: Soft, nondistended, dressing clean dry, minimal tenderness at incision sites - Labs CBC & Chem 7: 10/17/21 06:10 10/17/21 06:10 Labs: Abnormal Lab Results - Last 24 Hours (Table) 10/17/21 10/17/21 Range/Units 06:10 06:10 RBC 4.21 L (4.40-5.60) X 10*6/uL Hgb 11.2 L (13.0-17.0) g/dL Hct 34.2 L (39.6-50.0) % MCH 26.6 L (27.0-32.0) pg RDW 14.9 H (11.5-14.5) % Est GFR (CKD-EPI)NonAf 53.0 L (60.0-200.0) BUN/Creatinine Ratio 8.31 L (12.00-20.00) Ratio Calcium 8.3 L (8.7-10.3) mg/dL Assessment and Plan (1) Colonic mass Narrative/Plan: 76-year-old male doing well today after recent laparoscopic resection. Continue clear liquid diet. Ambulate today. Await return bowel function. Current Visit: Yes Status: Acute Code(s): K63.89 - OTHER SPECIFIED DISEASES OF INTESTINE SNOMED Code(s): 554032512
[2021-10-18 11:08] LABS: Basophils # (A) 0.01 X 10*3/uL (0.00-0.10); Basophils % (A) 0.1 %; Eosinophils # (A) 0 X 10*3/uL (0.04-0.35); Eosinophils % (A) 0 %; HCT 37.4 % (39.6-50.0); HGB 11.8 g/dL (13.0-17.0); Immature Grans, Automated 0.3 %; Lymphocytes # (A) 0.77 X 10*3/uL (0.90-5.00); Lymphocytes % (A) 6.4 %; MCH 26.5 pg (27.0-32.0); MCHC 31.6 g/dL (32.0-37.0); MCV 83.9 fL (80.0-97.0); Monocytes # (A) 1.45 X 10*3/uL (0.20-1.00); Monocytes % (A) 12.1 %; NRBC Per 100 WBC 0 /100 WBCS (0.0-0.0); Neutrophils # (A) 9.67 X 10*3/uL (1.80-7.70); Neutrophils % (A) 81.1 %; Platelet Count 280 X 10*3/uL (140-440); RBC 4.46 X 10*6/uL (4.40-5.60); RDW 15.1 % (11.5-14.5); WBC 11.94 X 10*3/uL (4.50-10.00)
[2021-10-18 12:34] LABS: % Iron Saturation 7.72 (15.00-50.00); Ferritin 49.9 ng/mL (22.0-322.0)
[2021-10-18 12:44] LABS: African American GFR (CKD) 41.2 (60.0-200.0); BUN/Creat Ratio 10.17 Ratio (12.00-20.00); Blood Urea Nitrogen 18.4 mg/dL (9.0-27.0); Calcium 8.4 mg/dL (8.7-10.3); Carbon Dioxide 24.3 mmol/L (20.0-27.5); Non-African American GFR(CKD) 35.5 (60.0-200.0); Potassium 4.6 mmol/L (3.5-5.5)
--- NOTE | 2021-10-18 13:48 | P.CONS ---
History of Present Illness - Reason for Consult Consult date: 10/18/21 Medical management Requesting physician: Renetta Vora - History of Present Illness This is a 76 year male who presents to the hospital for scheduled surgical intervention regarding tubular adenoma, large neoplasm of the cecum. Patient is postoperative day #1 robotic-assisted da Bertha laparoscopic right hemicolectomy with enterectomy with Dr. Massey. Patient follows with Dr. Mare Agustin in the primary care setting, we are asked to see patient in medical consultation for management of his chronic conditions which include; coronary artery disease status post cardiac stenting, Deep Vein thrombosis, hypertension, hyperlipidemia, fibromyalgia, myocardial infarction, history of prostate cancer with a recent diagnosis of colon cancer. Patient is a former smoker for 30 years quit in 1997 does use marijuana daily. Home medications include buspirone, Effexor, Toprol-XL, Lasix, candesartan, atorvastatin, Xanax, Robaxin. Preoperative labs include a white count of 9.14, hemoglobin 11.2, sodium 141, potassium 3.5, BUN 10.8, creatinine 1.3 was 1.50 on admission, blood glucose 92. Liver enzymes are within normal limits. Vital Signs today showing temp 97.5, heart rate 71, blood pressure 146/79, 99% 2 L nasal cannula. Appropriate home medications will be resumed. Inpatient he is receiving IV Flagyl, IV cefazolin postoperatively. Continues on fluids D5 half-normal saline with 20 Meq potassium. Postoperative pain management as per primary. Indwelling haley cather in place. Creatinine today has increased up to 1.8, losartan will be placed on hold. REVIEW OF SYSTEMS: CONSTITUTIONAL: No fever, no malaise, no fatigue. HEENT: No recent visual problems or hearing problems. Denied any sore throat. CARDIOVASCULAR: No chest pain, orthopnea, PND, no palpitations, no syncope. PULMONARY: No shortness of breath, no cough, no hemoptysis. GASTROINTESTINAL: No diarrhea, no nausea, no vomiting, pass gas, no BM. NEUROLOGICAL: No headaches, no weakness, no numbness. HEMATOLOGICAL: Denies any bleeding or petechiae. GENITOURINARY: Denies any burning micturition, frequency, or urgency. MUSCULOSKELETAL/RHEUMATOLOGICAL: Denies any joint pain, swelling, or any muscle pain. ENDOCRINE: Denies any polyuria or polydipsia. The rest of the 14-point review of systems is negative. PHYSICAL EXAMINATION: GENERAL: The patient is alert and oriented x3, not in any acute distress. Well developed, well nourished. HEENT: Pupils are round and equally reacting to light. EOMI. No scleral icterus. No conjunctival pallor. Normocephalic, atraumatic. No pharyngeal erythema. No thyromegaly. CARDIOVASCULAR: S1 and S2 present. No murmurs, rubs, or gallops. PULMONARY: Chest is clear to auscultation, no wheezing or crackles. ABDOMEN: Soft, tender, nondistended, normoactive bowel sounds. No palpable organomegaly. Postsurgical abdomen with abdominal binder in place. MUSCULOSKELETAL: No joint swelling or deformity. EXTREMITIES: No cyanosis, clubbing, or pedal edema. NEUROLOGICAL: Gross neurological examination did not reveal any focal deficits. SKIN: No rashes. Assessment and plan Assessment Colon cancer patient is Postoperative day 1 Right hemicolectomy with enterectomy Leukocytosis on admission has resolved Mild acute renal injury on admission, up to 1.8 today, baseline creatinine appears to be around 1.3 to 1.4 Hypertension History of coronary artery disease status post stenting History DVT Hyperlipidemia History of prostate cancer Former smoker Daily THC use Obesity GI Prophylaxis DVT Prophylaxis Subcu heparin Full Code Plan Continue home medications Hold losartan for elevated creatinine Follow up CBC, BMP in AM Encourage ambulation, incentive spirometry Diet per primary Thank you kindly for this consultation, we will follow patient along with saritha song this hospital stay The impression and plan of care has been dictated by Rubi Cid, Nurse Practitioner as directed. Dr. Ara MD I have performed a history and physical examination and medical decision making of this patient, discussed the same with the dictator, and agree with the dictators assessment and plan as written, documented as a scribe. Based on total visit time, I have performed more than 50% of this visit. Past Medical History Past Medical History: Coronary Artery Disease (CAD), Cancer, Deep Vein Thrombosis (DVT), Hyperlipidemia, Hypertension, Myocardial Infarction ([place]), Prostate Disorder Additional Past Medical History / Comment(s): HX PROSTATE CA., NEW DX COLON CANCER Last Myocardial Infarction Date:: 1997 History of Any Multi-Drug Resistant Organisms: None Reported Past Surgical History: Heart Catheterization With Stent, Orthopedic Surgery Additional Past Surgical History / Comment(s): ALEJANDRINA KNEE SCOPES, colonoscopy Past Anesthesia/Blood Transfusion Reactions: No Reported Reaction Date of Last Stent Placement:: 1997 Past Psychological History: No Psychological Hx Reported Smoking Status: Former smoker Past Alcohol Use History: Occasional Additional Past Alcohol Use History / Comment(s): SMOKED 30 YEARS, 1 PPD, QUIT 1997 Past Drug Use History: Marijuana Additional Drug Use History / Comment(s): MARIJUANA USE DAILY-INSTRUCTED TO REFRAIN FROM USE FOR AT LEAST 24 HOURS PRIOR TO PROCEDURE - Past Family History Father Family Medical History: Cancer Medications and Allergies Home Medications Medication Instructions Recorded Confirmed Type ALPRAZolam [Xanax] 0.25 mg PO TID 07/08/17 10/16/21 History Atorvastatin [Lipitor] 20 mg PO QAM 07/08/17 10/16/21 History Furosemide [Lasix] 40 mg PO DAILY 07/08/17 10/16/21 History Tamsulosin HCl [Flomax] 0.4 mg PO HS 07/08/17 10/16/21 History Metoprolol Succinate [Toprol XL] 100 mg PO DAILY 03/28/19 10/16/21 History Venlafaxine HCl ER [Effexor XR] 150 mg PO DAILY 03/28/19 10/16/21 History Candesartan [Atacand] 32 mg PO DAILY 11/15/20 10/16/21 History busPIRone HCL 10 mg PO DAILY 11/15/20 10/16/21 History methocarbamoL [Robaxin-750] 750 mg PO BID 11/15/20 10/16/21 History Allergies Allergy/AdvReac Type Severity Reaction Status Date / Time No Known Allergies Allergy Verified 10/16/21 10:51 Physical Exam Vitals: Vital Signs Temp Pulse Pulse Resp BP Pulse Ox 10/18/21 08:35 99 10/18/21 08:00 71 146/79 10/18/21 04:44 97.5 F L 65 16 112/69 99 10/17/21 22:15 72 151/85 100 10/17/21 21:15 77 164/84 98 10/17/21 20:45 74 162/86 98 10/17/21 20:15 75 163/83 99 10/17/21 20:00 74 167/87 97 10/17/21 19:50 18 10/17/21 19:45 74 157/75 99 10/17/21 19:20 98.1 F 74 18 157/73 92 L 10/17/21 18:45 77 18 155/74 94 L 10/17/21 18:29 75 18 158/76 100 10/17/21 18:17 98 10/17/21 18:16 75 16 162/77 100 10/17/21 18:01 97 F L 80 16 152/94 100 10/17/21 11:50 73 16 150/90 97 10/17/21 10:57 98.1 F 74 16 171/94 96 10/17/21 10:03 97.8 F 90 155/89 Intake and Output 10/17/21 10/18/21 10/18/21 22:59 06:59 14:59 Intake Total 0 1650 Output Total 960 600 Balance -960 1050 Intake: IV 0 Intake, IV Titration 1450 Amount ACETAMINOPHEN IV (For NPO 100 ) 1,000 mg In Empty Bag 1 bag @ 400 mls/hr IVPB Q6HR [facility] Rx#:[id number] D5-0.45% NaCl with KCl 1200 20Meq/l 1,000 ml @ 125 mls/hr IV .Q8H [facility] Rx#: [id number] ceFAZolin 2 gm In Sodium 50 Chloride 0.9% 50 ml @ 100 mls/hr IVPB Q8HR [facility] Rx# :[id number] metroNIDAZOLE-NS PMX 500 100 mg In Saline 1 100ml.bag @ 100 mls/hr IVPB Q6HR [facility] Rx#:[id number] Oral 200 Output: Urine 910 600 Estimated Blood Loss 50 Other: Voiding Method Indwelling Catheter Results CBC & Chem 7: 10/18/21 07:01 10/18/21 07:01 Labs: Abnormal Lab Results - Last 24 Hours (Table) 10/17/21 10/17/21 Range/Units 06:10 06:10 RBC 4.21 L (4.40-5.60) X 10*6/uL Hgb 11.2 L (13.0-17.0) g/dL Hct 34.2 L (39.6-50.0) % MCH 26.6 L (27.0-32.0) pg RDW 14.9 H (11.5-14.5) % Est GFR (CKD-EPI)NonAf 53.0 L (60.0-200.0) BUN/Creatinine Ratio 8.31 L (12.00-20.00) Ratio Calcium 8.3 L (8.7-10.3) mg/dL Assessment and Plan Time with Patient: Less than 30
[2021-10-18] MEDS: TAMSULOSIN 0.4 MG CAP.ER.24H PO SCH (20:12)
[2021-10-19] MEDS: D5-0.45% NACL WITH KCL 20MEQ/L 1,000 ML IV SCH ×2 (02:35→13:16)
[2021-10-19] MEDS: HYDROmorphone 1 MG/ML 1 ML SYRINGE IVP PRN ×2 (02:36→21:14)
[2021-10-19] MEDS: metroNIDAZOLE-NS PMX 500 MG in SALINE 1 100ML.BAG IVPB SCH ×3 (05:04→18:16)
[2021-10-19 07:25] LABS: ALT 7 U/L (4-49); AST 24 U/L (17-59); African American GFR (CKD) 45 (>60 ml/min/1.73 sqM); Albumin 2.9 g/dL (3.5-5.0); Albumin/Globulin Ratio 1.2; Alkaline Phosphatase 89 U/L (38-126); Anion Gap 5 mmol/L; Blood Urea Nitrogen 18 mg/dL (9-20); Carbon Dioxide 26 mmol/L (22-30); Chloride 101 mmol/L (98-107); Globulin 2.5 g/dL; Glucose 96 mg/dL (74-99); Magnesium 1.8 mg/dL (1.6-2.3); Non-African American GFR(CKD) 39 (>60 ml/min/1.73 sqM); Potassium 3.7 mmol/L (3.5-5.1); Sodium 132 mmol/L (137-145); Total Bilirubin 0.3 mg/dL (0.2-1.3); Total Protein 5.4 g/dL (6.3-8.2)
[2021-10-19] MEDS: HEPARIN SODIUM,PORCINE/PF 5,000 UNIT/0.5 ML SYRINGE SQ SCH ×2 (08:20→21:08)
[2021-10-19] MEDS: methocarbamoL 750 MG TAB PO SCH ×2 (08:20→21:06)
[2021-10-19] MEDS: VENLAFAXINE HCL ER 150 MG CAP PO SCH (08:20)
[2021-10-19] MEDS: METOPROLOL SUCCINATE (ER) 100 MG TAB.ER.24H PO SCH (08:20)
[2021-10-19] MEDS: busPIRone HCl 10 MG TAB PO SCH (08:20)
[2021-10-19] MEDS: ALVIMOPAN 12 MG CAPSULE PO SCH ×2 (08:20→21:06)
[2021-10-19] MEDS: ATORVASTATIN 20 MG TAB PO SCH (08:20)
[2021-10-19] MEDS: ALPRAZolam 0.25 MG TAB PO SCH ×3 (08:20→21:28)
[2021-10-19] MEDS ORDERED: LOSARTAN 50 MG TAB PO SCH (09:00)
[2021-10-19] MEDS ORDERED: POTASSIUM CHLORIDE ER 20 MEQ TAB.ER PO STA (09:13)
[2021-10-19] MEDS ORDERED: Magnesium Replacement Protocol 1 EACH MISC MISCELLANE PRN (09:13)
--- NOTE | 2021-10-19 09:47 | P.PN ---
Subjective Progress Note Date: 10/19/21 Principal diagnosis: Right-sided colon mass Patient doing well today. He is getting up into the chair. Suero catheter at to be replaced because of urinary retention. Passing flatus. No nausea or vomiting. Tolerating clear liquids. Labs noted. Objective - Vital Signs Vital signs: Vital Signs Temp 97.8 F 10/19/21 05:00 Pulse 71 10/19/21 05:00 Resp 18 10/19/21 05:00 BP 110/63 10/19/21 05:00 Pulse Ox 93 L 10/19/21 05:00 FiO2 Intake & Output 10/18/21 10/19/21 10/19/21 18:59 06:59 18:59 Intake Total 2000 Output Total 600 850 Balance -600 1150 Intake: Intake, IV Titration 1500 Amount D5-0.45% NaCl with KCl 1300 20Meq/l 1,000 ml @ 125 mls/hr IV .Q8H [facility] Rx#: [id number] metroNIDAZOLE-NS PMX 500 200 mg In Saline 1 100ml.bag @ 100 mls/hr IVPB Q6HR [facility] Rx#:[id number] Oral 500 Output: Urine 300 850 Post Void Residual 300 Other: Voiding Method Indwelling Catheter Indwelling Catheter - Exam Abdomen: Soft, nondistended, mild tenderness at incision sites, dressing clean and dry - Labs CBC & Chem 7: 10/18/21 07:01 10/19/21 05:29 Labs: Abnormal Lab Results - Last 24 Hours (Table) 10/18/21 10/18/21 10/19/21 Range/Units 07:01 07:01 05:29 WBC 11.94 H (4.50-10.00) X 10*3/uL Hgb 11.8 L (13.0-17.0) g/dL Hct 37.4 L (39.6-50.0) % MCH 26.5 L (27.0-32.0) pg MCHC 31.6 L (32.0-37.0) g/dL RDW 15.1 H (11.5-14.5) % Neutrophils # 9.67 H (1.80-7.70) X 10*3/uL Lymphocytes # 0.77 L (0.90-5.00) X 10*3/uL Monocytes # 1.45 H (0.20-1.00) X 10*3/uL Eosinophils # 0 L (0.04-0.35) X 10*3/uL Sodium 132 L (137-145) mmol/L Creatinine 1.8 H 1.68 H (0.6-1.5) mg/dL Est GFR (CKD-EPI)AfAm 41.2 L (60.0-200.0) Est GFR (CKD-EPI)NonAf 35.5 L (60.0-200.0) BUN/Creatinine Ratio 10.17 L (12.00-20.00) Ratio Glucose 150 H (70-110) mg/dL Calcium 8.4 L 8.0 L (8.7-10.3) mg/dL Iron 23 L (65-175) ug/dL % Saturation 7.72 L (15.00-50.00) Total Protein 5.4 L (6.3-8.2) g/dL Albumin 2.9 L (3.5-5.0) g/dL Assessment and Plan (1) Colonic mass Narrative/Plan: Patient doing well at this time. Keep Suero catheter in place for today. Increase diet to full liquids. Increase activity. Current Visit: Yes Status: Acute Code(s): K63.89 - OTHER SPECIFIED DISEASES OF INTESTINE SNOMED Code(s): 254549886
[2021-10-19] MEDS ORDERED: ACETAMINOPHEN TAB 325 MG TAB PO PRN (10:04)
[2021-10-19] MEDS: SIMETHICONE 40 MG/0.6 ML DROPS 2,000 MG/30 ML BOTTLE PO SCH ×4 (10:08→21:07)
[2021-10-19] MEDS: MAGNESIUM SULFATE-D5W PMX 1 GM in DEXTROSE/WATER 1 100ML.BAG IVPB SCH ×2 (10:08→16:40)
[2021-10-19] MEDS: IPRATROPIUM-ALBUTEROL 3 ML NEB INHALATION PRN ×2 (11:04→15:41)
--- NOTE | 2021-10-19 11:21 | P.NPCON ---
History of Present Illness - Reason for Consult acute renal failure, chronic renal failure - History of Present Illness Reason for consultation: Acute kidney injury on chronic kidney disease History of present illness: Patient is a 76-year-old male seen in consultation for acute kidney injury on chronic kidney disease. Patient has chronic kidney disease stage IIIB with baseline creatinine in the range of 1.4-1.5 secondary to nephrosclerosis and polycystic kidney disease. Creatinine peaked at 1.8 this admission and is 1.68 today. Patient presents with large neoplasm of the cecum with multiple adenomas of the colon. Patient underwent right hemicolectomy on 10/17/2021. He is receiving IV fluids. Lasix as well as Cozaar was stopped yesterday. Still hasn't had a bowel movement. Tolerating clear liquid diet and has been advanced to full liquid diet. Has a Suero catheter. Nonoliguric. Denies chest pain or shortness of breath. No history of diabetes. Does have history of coronary artery disease as well as aortic aneurysm repair. hemodynamically stable. Denies pain. On room air. Vital signs are stable. General: Awake. No acute distress. HEENT: Head exam is unremarkable. LUNGS: Breath sounds decreased. HEART: Rate and Rhythm are regular. ABDOMEN: Soft, mild generalized tenderness. EXTREMITITES: No edema. Past Medical History Past Medical History: Coronary Artery Disease (CAD), Cancer, Deep Vein Thrombosis (DVT), Hyperlipidemia, Hypertension, Myocardial Infarction ([place]), Prostate Disorder Additional Past Medical History / Comment(s): HX PROSTATE CA., NEW DX COLON CANCER Last Myocardial Infarction Date:: 1997 History of Any Multi-Drug Resistant Organisms: None Reported Past Surgical History: Heart Catheterization With Stent, Orthopedic Surgery Additional Past Surgical History / Comment(s): ALEJANDRINA KNEE SCOPES, colonoscopy Past Anesthesia/Blood Transfusion Reactions: No Reported Reaction Date of Last Stent Placement:: 1997 Past Psychological History: No Psychological Hx Reported Smoking Status: Former smoker Past Alcohol Use History: Occasional Additional Past Alcohol Use History / Comment(s): SMOKED 30 YEARS, 1 PPD, QUIT 1997 Past Drug Use History: Marijuana Additional Drug Use History / Comment(s): MARIJUANA USE DAILY-INSTRUCTED TO REFRAIN FROM USE FOR AT LEAST 24 HOURS PRIOR TO PROCEDURE - Past Family History Father Family Medical History: Cancer Medications and Allergies Home Medications Medication Instructions Recorded Confirmed Type ALPRAZolam [Xanax] 0.25 mg PO TID 07/08/17 10/16/21 History Atorvastatin [Lipitor] 20 mg PO QAM 07/08/17 10/16/21 History Furosemide [Lasix] 40 mg PO DAILY 07/08/17 10/16/21 History Tamsulosin HCl [Flomax] 0.4 mg PO HS 07/08/17 10/16/21 History Metoprolol Succinate [Toprol XL] 100 mg PO DAILY 03/28/19 10/16/21 History Venlafaxine HCl ER [Effexor XR] 150 mg PO DAILY 03/28/19 10/16/21 History Candesartan [Atacand] 32 mg PO DAILY 11/15/20 10/16/21 History busPIRone HCL 10 mg PO DAILY 11/15/20 10/16/21 History methocarbamoL [Robaxin-750] 750 mg PO BID 11/15/20 10/16/21 History Allergies Allergy/AdvReac Type Severity Reaction Status Date / Time No Known Allergies Allergy Verified 10/16/21 10:51 Physical Exam Vitals: Vital Signs Temp Pulse Resp BP BP Pulse Ox 10/19/21 05:00 97.8 F 71 18 110/63 93 L 10/18/21 19:50 16 10/18/21 19:00 97.6 F 59 L 16 111/63 92 L 10/18/21 11:35 97.5 F L 60 16 126/70 98 Intake and Output 10/18/21 10/19/21 10/19/21 22:59 06:59 14:59 Intake Total 2000 Output Total 300 850 Balance -300 1150 Intake: Intake, IV Titration 1500 Amount D5-0.45% NaCl with KCl 1300 20Meq/l 1,000 ml @ 125 mls/hr IV .Q8H [facility] Rx#: [id number] metroNIDAZOLE-NS PMX 500 200 mg In Saline 1 100ml.bag @ 100 mls/hr IVPB Q6HR [facility] Rx#:[id number] Oral 500 Output: Urine 850 Post Void Residual 300 Other: Voiding Method Indwelling Catheter Results - Lab Results Most recent lab results Calcium 8.0 mg/dL (8.4-10.2) L 10/19/21 05:29 Magnesium 1.8 mg/dL (1.6-2.3) 10/19/21 05:29 10/18/21 07:01 10/19/21 05:29 Assessment and Plan Plan: Assessment: 1. Acute kidney injury mostly prerenal secondary to poor intake, Lasix and losartan. Creatinine peaked at 1.8 this admission and is 1.68 today. 2. Chronic kidney disease stage IIIB with baseline creatinine near 1.5 secondary to nephrosclerosis and polycystic kidney disease. Multiple kidney cysts as well as liver cysts noted on CAT scan. Kidneys also noted to be large in size on ultrasound done outpatient. 3. Hyponatremia due to hypotonic fluid infusion. 4. Anemia with iron deficiency. 5. Malignant colon cancer status post right hemicolectomy 10/17/2021. 6. Hypertension with chronic kidney disease. Stable. Plan: Change half-normal saline to normal saline at 50 mL an hour. Diet to be advanced by surgery. Continue to hold diuretics and losartan for now. Avoid nephrotoxins. IV iron today. Continue to monitor renal function and urine output. Due to patient's age, malignancy her comorbidities, he was not given jynarque outpatient. Will reassess outpatient. Thank you for the consultation. I will continue to follow the patient with you during his hospital stay.
[2021-10-19] MEDS ORDERED: SODIUM FERRIC GLUCONAT-SUCROSE 125 MG in SODIUM CHLORIDE 0.9% 100 ML IVPB ONE (11:30)
[2021-10-19] MEDS: SODIUM CHLORIDE 0.9% 1,000 ML IV SCH ×2 (13:10→18:02)
--- NOTE | 2021-10-19 13:24 | P.PN ---
Subjective Progress Note Date: 10/19/21 This is a 76 year male who presents to the hospital for scheduled surgical intervention regarding tubular adenoma, large neoplasm of the cecum. Patient is postoperative day #1 robotic-assisted da Bertha laparoscopic right hemicolectomy with enterectomy with Dr. Massey. Patient follows with Dr. Mare Agustin in the primary care setting, we are asked to see patient in medical consultation for management of his chronic conditions which include; coronary artery disease status post cardiac stenting, Deep Vein thrombosis, hypertension, hyperlipidemia, fibromyalgia, myocardial infarction, history of prostate cancer with a recent diagnosis of colon cancer. Patient is a former smoker for 30 years quit in 1997 does use marijuana daily. Home medications include buspirone, Effexor, Toprol-XL, Lasix, candesartan, atorvastatin, Xanax, Robaxin. Preoperative labs include a white count of 9.14, hemoglobin 11.2, sodium 141, potassium 3.5, BUN 10.8, creatinine 1.3 was 1.50 on admission, blood glucose 92. Liver enzymes are within normal limits. Vital Signs today showing temp 97.5, heart rate 71, blood pressure 146/79, 99% 2 L nasal cannula. Appropriate home medications will be resumed. Inpatient he is receiving IV Flagyl, IV cefazolin postoperatively. Continues on fluids D5 half-normal saline with 20 Meq potassium. Postoperative pain management as per primary. Indwelling haley cather in place. Creatinine today has increased up to 1.8, losartan will be placed on hold. 10/19/2021 Patient is postoperative day #2 laparoscopic right hemicolectomy with enterectomy. Currently maintained on a clear liquid diet. He is wearing abdominal binder. Nephrology has been consulted regarding elevated creatinine. Sodium of 132, potassium 3.7, BUN 18, creatinine is 1.68, magnesium 1.8. Iron studies are completed showing an iron level 23, TIBC 283, percent saturation 7.72, transferrin 209, ferritin 49.9. He continues on IV metronidazole. He continues on D5 half-normal saline with 20 Meqs of potassium which has been adjusted to normal saline for gentle hydration. patient is tolerated diet which will be advanced to full liquid today. Repeat labs tomorrow. Lasix and losartan are currently on hold. He is afebrile, heart rate 71, blood pressure 110/63, 93% room air. Patient has some scattered wheezing throughout will order as needed duonebs as well. Review of Systems Constitutional: Denied any fatigue denied any fever. Cardio vascular: denied any chest pain, palpitations Gastrointestinal: denied any nausea, vomiting, diarrhea Pulmonary: Denied any shortness of breath cough Neurologic denied any new focal deficits All inpatient medications were reviewed and appropriate changes in these medications as dictated in the interval history and assessment and plan. PHYSICAL EXAMINATION: GENERAL: The patient is alert and oriented x3, not in any acute distress. Well developed, well nourished. HEENT: Pupils are round and equally reacting to light. EOMI. No scleral icterus. No conjunctival pallor. Normocephalic, atraumatic. No pharyngeal erythema. No thyromegaly. CARDIOVASCULAR: S1 and S2 present. No murmurs, rubs, or gallops. PULMONARY: Chest is clear to auscultation, no wheezing or crackles. ABDOMEN: Soft, tender, nondistended, normoactive bowel sounds. No palpable organ omegaly. Postsurgical abdomen with abdominal binder in place. MUSCULOSKELETAL: No joint swelling or deformity. EXTREMITIES: No cyanosis, clubbing, or pedal edema. NEUROLOGICAL: Gross neurological examination did not reveal any focal deficits. SKIN: No rashes. Assessment and plan Assessment Colon cancer patient is Postoperative day 2 Right hemicolectomy with enterectomy Leukocytosis on admission has resolved Acute renal injury secondary to poor oral intake and medications. Chronic kidney disease Hyponatremia Hypertension Iron deficiency anemia History of coronary artery disease status post stenting History DVT Hyperlipidemia History of prostate cancer Former smoker Daily THC use Obesity GI Prophylaxis DVT Prophylaxis Subcu heparin Full Code Plan Continue home medications Losartan and Lasix are on hold Replace potassium, magnesium Repeat labs in AM Encourage ambulation, incentive spirometry Diet per primary Thank you kindly for this consultation, we will follow patient along with primary this hospital stay The impression and plan of care has been dictated by Rubi Cid Nurse Practitioner as directed. Dr. Ara MD I have performed a history and physical examination and medical decision making of this patient, discussed the same with the dictator, and agree with the dictators assessment and plan as written, documented as a scribe. Based on total visit time, I have performed more than 50% of this visit. Objective - Vital Signs Vital signs: Vital Signs Temp 97.8 F 10/19/21 05:00 Pulse 71 10/19/21 05:00 Resp 18 10/19/21 05:00 BP 110/63 10/19/21 05:00 Pulse Ox 93 L 10/19/21 05:00 FiO2 Intake & Output 10/18/21 10/19/21 10/19/21 18:59 06:59 18:59 Intake Total 2000 Output Total 600 850 Balance -600 1150 Intake: Intake, IV Titration 1500 Amount D5-0.45% NaCl with KCl 1300 20Meq/l 1,000 ml @ 125 mls/hr IV .Q8H [facility] Rx#: [id number] metroNIDAZOLE-NS PMX 500 200 mg In Saline 1 100ml.bag @ 100 mls/hr IVPB Q6HR [facility] Rx#:[id number] Oral 500 Output: Urine 300 850 Post Void Residual 300 Other: Voiding Method Indwelling Catheter Indwelling Catheter - Labs CBC & Chem 7: 10/18/21 07:01 10/19/21 05:29 Labs: Abnormal Lab Results - Last 24 Hours (Table) 10/18/21 10/18/21 10/19/21 Range/Units 07:01 07:01 05:29 WBC 11.94 H (4.50-10.00) X 10*3/uL Hgb 11.8 L (13.0-17.0) g/dL Hct 37.4 L (39.6-50.0) % MCH 26.5 L (27.0-32.0) pg MCHC 31.6 L (32.0-37.0) g/dL RDW 15.1 H (11.5-14.5) % Neutrophils # 9.67 H (1.80-7.70) X 10*3/uL Lymphocytes # 0.77 L (0.90-5.00) X 10*3/uL Monocytes # 1.45 H (0.20-1.00) X 10*3/uL Eosinophils # 0 L (0.04-0.35) X 10*3/uL Sodium 132 L (137-145) mmol/L Creatinine 1.8 H 1.68 H (0.6-1.5) mg/dL Est GFR (CKD-EPI)AfAm 41.2 L (60.0-200.0) Est GFR (CKD-EPI)NonAf 35.5 L (60.0-200.0) BUN/Creatinine Ratio 10.17 L (12.00-20.00) Ratio Glucose 150 H (70-110) mg/dL Calcium 8.4 L 8.0 L (8.7-10.3) mg/dL Iron 23 L (65-175) ug/dL % Saturation 7.72 L (15.00-50.00) Total Protein 5.4 L (6.3-8.2) g/dL Albumin 2.9 L (3.5-5.0) g/dL Assessment and Plan Time with Patient: Less than 30
[2021-10-19] MEDS: TAMSULOSIN 0.4 MG CAP.ER.24H PO SCH (21:06)
[2021-10-19] MEDS: LACTATED RINGERS 1,000 ML IV SCH (21:29)
[2021-10-20] MEDS: metroNIDAZOLE-NS PMX 500 MG in SALINE 1 100ML.BAG IVPB SCH ×5 (00:44→23:56)
[2021-10-20] MEDS: LACTATED RINGERS 1,000 ML IV SCH ×2 (05:22→21:11)
[2021-10-20] MEDS: IPRATROPIUM-ALBUTEROL 3 ML NEB INHALATION PRN ×2 (08:52→16:26)
[2021-10-20] MEDS: HEPARIN SODIUM,PORCINE/PF 5,000 UNIT/0.5 ML SYRINGE SQ SCH ×2 (09:08→20:31)
[2021-10-20] MEDS: SODIUM CHLORIDE 0.9% 1,000 ML IV SCH (09:08)
[2021-10-20] MEDS: ALPRAZolam 0.25 MG TAB PO SCH ×3 (09:09→20:32)
[2021-10-20] MEDS: HYDROmorphone 1 MG/ML 1 ML SYRINGE IVP PRN (09:09)
[2021-10-20] MEDS: ATORVASTATIN 20 MG TAB PO SCH (09:09)
[2021-10-20] MEDS: busPIRone HCl 10 MG TAB PO SCH (09:09)
[2021-10-20] MEDS: SIMETHICONE 40 MG/0.6 ML DROPS 2,000 MG/30 ML BOTTLE PO SCH ×4 (09:18→20:32)
[2021-10-20] MEDS: METOPROLOL SUCCINATE (ER) 100 MG TAB.ER.24H PO SCH (09:18)
[2021-10-20] MEDS: methocarbamoL 750 MG TAB PO SCH ×2 (09:18→20:32)
[2021-10-20] MEDS: VENLAFAXINE HCL ER 150 MG CAP PO SCH (09:19)
[2021-10-20 10:37] LABS: Basophils # (A) 0.04 X 10*3/uL (0.00-0.10); Basophils % (A) 0.4 %; Eosinophils # (A) 0.26 X 10*3/uL (0.04-0.35); Eosinophils % (A) 2.5 %; HCT 34.9 % (39.6-50.0); HGB 10.8 g/dL (13.0-17.0); Immature Grans, Automated 0.7 %; Lymphocytes # (A) 1.17 X 10*3/uL (0.90-5.00); Lymphocytes % (A) 11.1 %; MCH 25.9 pg (27.0-32.0); MCHC 30.9 g/dL (32.0-37.0); MCV 83.7 fL (80.0-97.0); Mean Platelet Volume 10.1 fL (9.5-12.2); Monocytes # (A) 1.25 X 10*3/uL (0.20-1.00); Monocytes % (A) 11.9 %; NRBC Per 100 WBC 0 /100 WBCS (0.0-0.0); Neutrophils # (A) 7.73 X 10*3/uL (1.80-7.70); Neutrophils % (A) 73.4 %; Platelet Count 241 X 10*3/uL (140-440); RBC 4.17 X 10*6/uL (4.40-5.60); RDW 15.1 % (11.5-14.5); WBC 10.52 X 10*3/uL (4.50-10.00)
[2021-10-20 10:50] LABS: African American GFR (CKD) 57.2 (60.0-200.0); Anion Gap 7.3 mmol/L (10.00-18.00); BUN/Creat Ratio 7.75 Ratio (12.00-20.00); Blood Urea Nitrogen 10.7 mg/dL (9.0-27.0); Calcium 8.5 mg/dL (8.7-10.3); Carbon Dioxide 26.5 mmol/L (20.0-27.5); Magnesium 2.2 mg/dL (1.5-2.4); Non-African American GFR(CKD) 49.3 (60.0-200.0); Potassium 4.2 mmol/L (3.5-5.5)
--- NOTE | 2021-10-20 12:22 | P.PN ---
Subjective Progress Note Date: 10/20/21 CHIEF COMPLAINT: Right-sided colon mass HISTORY OF PRESENT ILLNESS: Patient is postop day #3 status post robotic laparoscopic right hemicolectomy and enterectomy. Patient reports his pain is controlled. He is currently sitting up at bedside chair. He is on a full liquid diet. Denies any nausea or vomiting. Reports small bowel movement and flatus. Patient seen by nephrology in regards to acute kidney injury. Afebrile. WBC is 10.5 to Hgb 10.8 platelets 241 sodium is 140 potassium 4.2 creatinine improved from 1.68- 1.4. Patient followed by nephrology for acute renal failure. PHYSICAL EXAM: VITAL SIGNS: Reviewed GENERAL: Well-developed in no acute distress. HEENT: No sclera icterus. Extraocular movements grossly intact. Moist buccal mucosa. Head is atraumatic, normocephalic. Hears conversational speech. No nasal drainage. NECK: Supple without lymphadenopathy. CHEST: Non-labored respirations and equal bilateral excursions. CARDIOVASCULAR: Palpable 2+ radial pulses. ABDOMEN: Soft. Nondistended. Incision sites clean dry and intact. Abdominal binder in place. MUSCULOSKELETAL: No clubbing or cyanosis. NEUROLOGIC: No focal or lateralizing signs. Cranial nerves II through XII grossly intact. PSYCH: Appropriate affect. Alert and oriented to person, place and time. SKIN: Well perfused. Good skin turgor. ASSESSMENT: 1. Right-sided colon mass status post right hemicolectomy 2. Chronic iron deficiency anemia 3. Abdominal aortic aneurysm 4. Personal history of prostate cancer 5. Hyperlipidemia 6. Ischemic cardiomyopathy 7. 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 Coronary artery disease 9. Morbid obesity due to excess calories, BMI 35.9 10. Stage III chronic renal insufficiency due to hypertensive heart disease 11. History of multiple adenomatous colon 12. Sigmoid diverticulosis with pandiverticulosis 13. Depressive disorder 14. Generalized anxiety disorder 15. History of myocardial infarction 16. History of deep venous thrombosis PLAN: -Continue supportive care -Continue pain medication as needed -Continue incentive spirometer use -Encourage patient to ambulate -Continue antibiotics -Continue Suero catheter for urinary retention -Consult PT OT -DVT prophylaxis subcu heparin Physician Parts Identification Technician note has been reviewed by physician. Signing provider agrees with the documented findings, assessment, and plan of care. CHIEF COMPLAINT: Ascending colon mass HISTORY OF PRESENT ILLNESS: The patient is a 76-year-old male status post right hemicolectomy, 10/17/2021 with enterectomy and partial omentectomy. He is passing some flatus. He denies any large bowel movement. He is ambulating. He has pre-existing urinary retention due to prostate disorder. His urologist is Dr. Stafford. He is on liquid diet. ROS: No reports of nausea and vomiting. No bowel movements. No fevers or chills. No new chest pain. History of pre-existing chronic renal disease. PHYSICAL EXAM: VITAL SIGNS: Reviewed CONSTITUTIONAL: Well developed and in no acute distress. EYES: Conjuctivae without sclera icterus. Extraocular movements grossly intact. HEAD, EARS, NOSE, THROAT: Moist buccal mucosa. Head is atraumatic, normoc ephalic. Hears conversational speech. No nasal drainage. RESPIRATORY: Non-labored respirations and equal bilateral excursions. CARDIOVASCULAR: Palpable 2+ radial pulses. ABDOMEN: Protuberant. Incisions clean dry and intact. No signs of bleeding along dressing. MUSCULOSKELETAL: No gross deformity of the lower extremities noted. No clubbing. No cyanosis. Edema along the right forearm. SKIN: Good skin turgor. Well perfused. NEUROLOGIC: Cranial nerves II through XII grossly intact. No focal or lateralizing signs. PSYCH: Appropriate affect. Alert and oriented to person, place and time. CLINICAL LABS: Reviewed. WBC improving from over 11,000 to over 10,000. Hemoglobin stable 11.2 preop to 10.8 today. Creatinine improving from 1.8 down to 1.4, improved from baseline 1.5. ASSESSMENT: 1. Ascending colon mass 2. Multiple colonic adenomas, over 40+ resected 3. Pre-existing low obstructive uropathy due to prostate disorder 4. Chronic renal disease, stage III PLAN: 1. Consultation to urology made due to pre-existing prostate disorder and obstructive uropathy. Patient is on Flomax. Pending urology recommendations, may need Suero upon discharge. 2. Advance diet to a low fiber diet 3. Continue Entereg pending large bowel movement 4. Disposition in 24-48 hours pending urology recommendations including bowel habit. Objective - Vital Signs Vital signs: Vital Signs Temp 98.2 F 10/20/21 11:29 Pulse 66 10/20/21 11:29 Resp 16 10/20/21 11:29 BP 145/88 07/11/22 11:29 Pulse Ox 93 L 10/20/21 11:29 FiO2 Intake & Output 10/19/21 10/20/21 10/20/21 18:59 06:59 18:59 Output Total 1950 1800 Balance -1950 -1800 Output: Urine 1950 1800 Other: Voiding Method Indwelling Catheter Indwelling Catheter # Voids 0 # Bowel Movements 0 - Labs CBC & Chem 7: 10/20/21 06:57 10/20/21 06:57 Labs: Abnormal Lab Results - Last 24 Hours (Table) 10/20/21 10/20/21 Range/Units 06:57 06:57 WBC 10.52 H (4.50-10.00) X 10*3/uL RBC 4.17 L (4.40-5.60) X 10*6/uL Hgb 10.8 L (13.0-17.0) g/dL Hct 34.9 L (39.6-50.0) % MCH 25.9 L (27.0-32.0) pg MCHC 30.9 L (32.0-37.0) g/dL RDW 15.1 H (11.5-14.5) % Immature Gran # 0.07 H (0.00-0.04) X 10*3/uL Neutrophils # 7.73 H (1.80-7.70) X 10*3/uL Monocytes # 1.25 H (0.20-1.00) X 10*3/uL Anion Gap 7.30 L (10.00-18.00) mmol/L Est GFR (CKD-EPI)AfAm 57.2 L (60.0-200.0) Est GFR (CKD-EPI)NonAf 49.3 L (60.0-200.0) BUN/Creatinine Ratio 7.75 L (12.00-20.00) Ratio Calcium 8.5 L (8.7-10.3) mg/dL
[2021-10-20] MEDS: LOSARTAN 50 MG TAB PO SCH (12:26)
--- NOTE | 2021-10-20 13:31 | P.PN ---
Subjective Progress Note Date: 10/20/21 This is a 76 year male who presents to the hospital for scheduled surgical intervention regarding tubular adenoma, large neoplasm of the cecum. Patient is postoperative day #1 robotic-assisted da Bertha laparoscopic right hemicolectomy with enterectomy with Dr. Massey. Patient follows with Dr. Mare Agustin in the primary care setting, we are asked to see patient in medical consultation for management of his chronic conditions which include; coronary artery disease status post cardiac stenting, Deep Vein thrombosis, hypertension, hyperlipidemia, fibromyalgia, myocardial infarction, history of prostate cancer with a recent diagnosis of colon cancer. Patient is a former smoker for 30 years quit in 1997 does use marijuana daily. Home medications include buspirone, Effexor, Toprol-XL, Lasix, candesartan, atorvastatin, Xanax, Robaxin. Preoperative labs include a white count of 9.14, hemoglobin 11.2, sodium 141, potassium 3.5, BUN 10.8, creatinine 1.3 was 1.50 on admission, blood glucose 92. Liver enzymes are within normal limits. Vital Signs today showing temp 97.5, heart rate 71, blood pressure 146/79, 99% 2 L nasal cannula. Appropriate home medications will be resumed. Inpatient he is receiving IV Flagyl, IV cefazolin postoperatively. Continues on fluids D5 half-normal saline with 20 Meq potassium. Postoperative pain management as per primary. Indwelling haley cather in place. Creatinine today has increased up to 1.8, losartan will be placed on hold. 10/19/2021 Patient is postoperative day #2 laparoscopic right hemicolectomy with enterectomy. Currently maintained on a clear liquid diet. He is wearing abdominal binder. Nephrology has been consulted regarding elevated creatinine. Sodium of 132, potassium 3.7, BUN 18, creatinine is 1.68, magnesium 1.8. Iron studies are completed showing an iron level 23, TIBC 283, percent saturation 7.72, transferrin 209, ferritin 49.9. He continues on IV metronidazole. He continues on D5 half-normal saline with 20 Meqs of potassium which has been adjusted to normal saline for gentle hydration. patient is tolerated diet which will be advanced to full liquid today. Repeat labs tomorrow. Lasix and losartan are currently on hold. He is afebrile, heart rate 71, blood pressure 110/63, 93% room air. Patient has some scattered wheezing throughout will order as needed duonebs as well. 10/20/2021 patient is without asymmetry is postoperative day #3 right hemicolectomy and hysterectomy. He was advanced to full liquid diet and tolerating well. No nausea or vomiting. He denies bowel movement but is passing gas and his bowel sounds are more active today. He is using abdominal binder. His main complaint is pain in the right upper quadrant rating as 6 out of 10 but is stating that the pain medication is helping when he receives it. today his wheezing has improved he is using incentive spirometer, is also on DuoNeb's. IV fluids have been discontinued. white count today is 10.52, hemoglobin 10.8, sodium has improved now 140. Magnesium is now 2.2 after supplementation. Also his creatinine has improved and is now 1.4, has been resumed on losartan as blood pressure is elevated today at 145/88. Review of Systems Constitutional: Denied any fatigue denied any fever. Cardio vascular: denied any chest pain, palpitations Gastrointestinal: denied any nausea, vomiting, diarrhea, passing gas, no BM. Pulmonary: Denied any shortness of breath cough Neurologic denied any new focal deficits All inpatient medications were reviewed and appropriate changes in these medications as dictated in the interval history and assessment and plan. PHYSICAL EXAMINATION: GENERAL: The patient is alert and oriented x3, not in any acute distress. Well developed, well nourished. HEENT: Pupils are round and equally reacting to light. EOMI. No scleral icterus. No conjunctival pallor. Normocephalic, atraumatic. No pharyngeal erythema. No thyromegaly. CARDIOVASCULAR: S1 and S2 present. No murmurs, rubs, or gallops. PULMONARY: Chest is clear to auscultation, no wheezing or crackles. ABDOMEN: Soft, tender, nondistended, normoactive bowel sounds. No palpable organomegaly. Postsurgical abdomen with abdominal binder in place. MUSCULOSKELETAL: No joint swelling or deformity. EXTREMITIES: No cyanosis, clubbing, or pedal edema. NEUROLOGICAL: Gross neurological examination did not reveal any focal deficits. SKIN: No rashes. Assessment and plan Assessment Colon cancer patient is Postoperative day 3 Right hemicolectomy with enterectomy Leukocytosis on admission, improving Acute renal injury secondary to poor oral intake and medications, improving. Chronic kidney disease Hyponatremia, resolved Hypertension Iron deficiency anemia Ischemic cardiomyopathy History of coronary artery disease status post stenting History DVT Hyperlipidemia History of prostate cancer Abdominal aortic aneurysm Former smoker Daily THC use Obesity GI Prophylaxis DVT Prophylaxis Subcu heparin Full Code Plan Losartan has been resumed Replace potassium, magnesium as needed Encourage ambulation, incentive spirometry Diet per primary Pain management per primary Thank you kindly for this consultation, we will follow patient along with primary this hospital stay The impression and plan of care has been dictated by Rubi Cid, Nurse Practitioner as directed. Dr. Ara MD I have performed a history and physical examination and medical decision making of this patient, discussed the same with the dictator, and agree with the dictators assessment and plan as written, documented as a scribe. Based on total visit time, I have performed more than 50% of this visit. Objective - Vital Signs Vital signs: Vital Signs Temp 98.4 F 10/20/21 04:34 Pulse 80 10/20/21 09:04 Resp 18 10/20/21 09:04 BP 168/94 10/20/21 04:34 Pulse Ox 94 L 10/20/21 08:53 FiO2 Intake & Output 10/19/21 10/20/21 10/20/21 18:59 06:59 18:59 Output Total 1950 1800 Balance -1950 -1800 Output: Urine 1950 1800 Other: Voiding Method Indwelling Catheter Indwelling Catheter # Voids 0 # Bowel Movements 0 - Labs CBC & Chem 7: 10/20/21 06:57 10/20/21 06:57 Labs: Abnormal Lab Results - Last 24 Hours (Table) 10/20/21 Range/Units 06:57 WBC 10.52 H (4.50-10.00) X 10*3/uL RBC 4.17 L (4.40-5.60) X 10*6/uL Hgb 10.8 L (13.0-17.0) g/dL Hct 34.9 L (39.6-50.0) % MCH 25.9 L (27.0-32.0) pg MCHC 30.9 L (32.0-37.0) g/dL RDW 15.1 H (11.5-14.5) % Immature Gran # 0.07 H (0.00-0.04) X 10*3/uL Neutrophils # 7.73 H (1.80-7.70) X 10*3/uL Monocytes # 1.25 H (0.20-1.00) X 10*3/uL Assessment and Plan Time with Patient: Less than 30
[2021-10-20] MEDS: ALVIMOPAN 12 MG CAPSULE PO SCH ×2 (15:04→20:32)
[2021-10-20] MEDS: ACETAMINOPHEN TAB 500 MG TAB PO SCH ×2 (17:54→23:56)
[2021-10-20] MEDS: TAMSULOSIN 0.4 MG CAP.ER.24H PO SCH (20:32)
[2021-10-21] MEDS: SODIUM CHLORIDE 0.9% 1,000 ML IV SCH (04:06)
[2021-10-21] MEDS: LACTATED RINGERS 1,000 ML IV SCH ×2 (05:16→19:44)
[2021-10-21] MEDS: metroNIDAZOLE-NS PMX 500 MG in SALINE 1 100ML.BAG IVPB SCH ×4 (05:32→23:37)
[2021-10-21] MEDS: ACETAMINOPHEN TAB 500 MG TAB PO SCH ×4 (05:32→23:37)
[2021-10-21] MEDS: ATORVASTATIN 20 MG TAB PO SCH (08:49)
[2021-10-21] MEDS: busPIRone HCl 10 MG TAB PO SCH (08:49)
[2021-10-21] MEDS: ALVIMOPAN 12 MG CAPSULE PO SCH (08:49)
[2021-10-21] MEDS: VENLAFAXINE HCL ER 150 MG CAP PO SCH (08:49)
[2021-10-21] MEDS: methocarbamoL 750 MG TAB PO SCH ×2 (08:49→20:31)
[2021-10-21] MEDS: METOPROLOL SUCCINATE (ER) 100 MG TAB.ER.24H PO SCH (08:50)
[2021-10-21] MEDS: SIMETHICONE 40 MG/0.6 ML DROPS 2,000 MG/30 ML BOTTLE PO SCH ×4 (08:50→20:31)
[2021-10-21] MEDS: LOSARTAN 50 MG TAB PO SCH (08:50)
[2021-10-21] MEDS: ALPRAZolam 0.25 MG TAB PO SCH ×3 (08:50→21:33)
[2021-10-21] MEDS: HEPARIN SODIUM,PORCINE/PF 5,000 UNIT/0.5 ML SYRINGE SQ SCH ×2 (08:50→20:31)
--- NOTE | 2021-10-21 09:10 | P.GSCN ---
History of Present Illness Consult date: 10/21/21 Reason for Consult: Urinary retention Requesting physician: Renetta Vora History of present illness: The patient is a 76-year-old -[place] male well known to me. He has a history of prostate cancer, treated with combination radiation therapy in 2015. His PSA level in March 2021 was undetectable. He has an apparent urethral stricture, as he required urethral dilation in March [address] a Suero catheter. When seen in the office in March 2021 he was verified to be emptying his bladder completely. He underwent a robotic assisted laparoscopic right hemicolectomy and enterectomy on 10/17/2021 for colon cancer. He has developed postoperative urinary retention. I am consulted for this reason. Incidentally, a CT scan performed in August 2021 showed a 1.7 cm left adrenal nodular thickening and bilateral renal cysts, but no other urologic abnormalities were seen. Review of Systems - Constitutional Denies chills, Denies fever - Gastrointestinal Reports as per HPI - Genitourinary Reports as per HPI Past Medical History Past Medical History: Coronary Artery Disease (CAD), Cancer, Deep Vein Thrombosis (DVT), Hyperlipidemia, Hypertension, Myocardial Infarction ([place]), Prostate Disorder Additional Past Medical History / Comment(s): HX PROSTATE CA., NEW DX COLON CANCER Last Myocardial Infarction Date:: 1997 History of Any Multi-Drug Resistant Organisms: None Reported Past Surgical History: Heart Catheterization With Stent, Orthopedic Surgery Additional Past Surgical History / Comment(s): ALEJANDRINA KNEE SCOPES, colonoscopy Past Anesthesia/Blood Transfusion Reactions: No Reported Reaction Date of Last Stent Placement:: 1997 Past Psychological History: No Psychological Hx Reported Smoking Status: Former smoker Past Alcohol Use History: Occasional Additional Past Alcohol Use History / Comment(s): SMOKED 30 YEARS, 1 PPD, QUIT 1997 Past Drug Use History: Marijuana Additional Drug Use History / Comment(s): MARIJUANA USE DAILY-INSTRUCTED TO REFRAIN FROM USE FOR AT LEAST 24 HOURS PRIOR TO PROCEDURE - Past Family History Father Family Medical History: Cancer Medications and Allergies Home Medications Medication Instructions Recorded Confirmed Type ALPRAZolam [Xanax] 0.25 mg PO TID 07/08/17 10/16/21 History Atorvastatin [Lipitor] 20 mg PO QAM 07/08/17 10/16/21 History Furosemide [Lasix] 40 mg PO DAILY 07/08/17 10/16/21 History Tamsulosin HCl [Flomax] 0.4 mg PO HS 07/08/17 10/16/21 History Metoprolol Succinate [Toprol XL] 100 mg PO DAILY 03/28/19 10/16/21 History Venlafaxine HCl ER [Effexor XR] 150 mg PO DAILY 03/28/19 10/16/21 History Candesartan [Atacand] 32 mg PO DAILY 11/15/20 10/16/21 History busPIRone HCL 10 mg PO DAILY 11/15/20 10/16/21 History methocarbamoL [Robaxin-750] 750 mg PO BID 11/15/20 10/16/21 History Acetaminophen Tab [Tylenol Tab] 1,000 mg PO Q6HR PRN #30 tablet 10/20/21 Rx Simethicone [Gas-X] 125 mg PO AC-TID PRN #20 capsule 10/20/21 Rx Allergies Allergy/AdvReac Type Severity Reaction Status Date / Time No Known Allergies Allergy Verified 10/16/21 10:51 Surgical - Exam Vital Signs Temp Pulse Resp BP Pulse Ox 98.6 F 93 18 183/103 96 10/16/21 10:38 10/16/21 10:38 10/16/21 10:38 10/16/21 10:38 10/16/21 10:38 - General well developed, well nourished, no distress - Respiratory normal respiratory effort - Abdomen Abdomen: soft, non tender, no guarding, no rigid, no rebound - Genitourinary normal penis with no external lesions, testicles non-tender - Psychiatric oriented to time, oriented to person, oriented to place, speech is normal, memory intact Results - Labs 10/20/21 06:57 10/20/21 06:57 Abnormal Lab Results - Last 24 Hours (Table) 10/20/21 10/20/21 Range/Units 06:57 06:57 WBC 10.52 H (4.50-10.00) X 10*3/uL RBC 4.17 L (4.40-5.60) X 10*6/uL Hgb 10.8 L (13.0-17.0) g/dL Hct 34.9 L (39.6-50.0) % MCH 25.9 L (27.0-32.0) pg MCHC 30.9 L (32.0-37.0) g/dL RDW 15.1 H (11.5-14.5) % Immature Gran # 0.07 H (0.00-0.04) X 10*3/uL Neutrophils # 7.73 H (1.80-7.70) X 10*3/uL Monocytes # 1.25 H (0.20-1.00) X 10*3/uL Anion Gap 7.30 L (10.00-18.00) mmol/L Est GFR (CKD-EPI)AfAm 57.2 L (60.0-200.0) Est GFR (CKD-EPI)NonAf 49.3 L (60.0-200.0) BUN/Creatinine Ratio 7.75 L (12.00-20.00) Ratio Calcium 8.5 L (8.7-10.3) mg/dL Diabetes panel 10/20/21 Range/Units 06:57 Sodium 140 (135-145) mmol/L Potassium 4.2 (3.5-5.5) mmol/L Chloride 106 (96-109) mmol/L Carbon Dioxide 26.5 (20.0-27.5) mmol/L BUN 10.7 (9.0-27.0) mg/dL Creatinine 1.4 (0.6-1.5) mg/dL Glucose 95 (70-110) mg/dL Calcium 8.5 L (8.7-10.3) mg/dL Calcium panel 10/20/21 Range/Units 06:57 Calcium 8.5 L (8.7-10.3) mg/dL Pituitary panel 10/20/21 Range/Units 06:57 Sodium 140 (135-145) mmol/L Potassium 4.2 (3.5-5.5) mmol/L Chloride 106 (96-109) mmol/L Carbon Dioxide 26.5 (20.0-27.5) mmol/L BUN 10.7 (9.0-27.0) mg/dL Creatinine 1.4 (0.6-1.5) mg/dL Glucose 95 (70-110) mg/dL Calcium 8.5 L (8.7-10.3) mg/dL Adrenal panel 10/20/21 Range/Units 06:57 Sodium 140 (135-145) mmol/L Potassium 4.2 (3.5-5.5) mmol/L Chloride 106 (96-109) mmol/L Carbon Dioxide 26.5 (20.0-27.5) mmol/L BUN 10.7 (9.0-27.0) mg/dL Creatinine 1.4 (0.6-1.5) mg/dL Glucose 95 (70-110) mg/dL Calcium 8.5 L (8.7-10.3) mg/dL Assessment and Plan (1) Retention of urine, unspecified Current Visit: Yes Status: Acute Code(s): R33.9 - RETENTION OF URINE, UNSPECIFIED SNOMED Code(s): 612922901 Plan: It would be my recommendation that Mr. Chauhan be discharged home with the Suero catheter. Arrangements will be made for him to be seen in the office in the afternoon 10/27/2021. He has been instructed to remove his Suero catheter early that morning. I would suggest he be discharged home on tamsulosin to increase the likelihood that he will be able to void successfully. Please notify me if we can be of any further assistance.
[2021-10-21 10:47] LABS: Basophils # (A) 0.03 X 10*3/uL (0.00-0.10); Basophils % (A) 0.3 %; Eosinophils # (A) 0.36 X 10*3/uL (0.04-0.35); Eosinophils % (A) 3.4 %; HCT 35.2 % (39.6-50.0); HGB 11.1 g/dL (13.0-17.0); Immature Grans, Automated 0.6 %; Lymphocytes # (A) 1.34 X 10*3/uL (0.90-5.00); Lymphocytes % (A) 12.8 %; MCH 26.4 pg (27.0-32.0); MCHC 31.5 g/dL (32.0-37.0); MCV 83.8 fL (80.0-97.0); Monocytes # (A) 1.01 X 10*3/uL (0.20-1.00); Monocytes % (A) 9.7 %; NRBC Per 100 WBC 0 /100 WBCS (0.0-0.0); Neutrophils # (A) 7.64 X 10*3/uL (1.80-7.70); Neutrophils % (A) 73.2 %; Platelet Count 256 X 10*3/uL (140-440); RDW 15.1 % (11.5-14.5); WBC 10.44 X 10*3/uL (4.50-10.00)
[2021-10-21 11:02] LABS: African American GFR (CKD) 61.4 (60.0-200.0); Anion Gap 8.4 mmol/L (10.00-18.00); BUN/Creat Ratio 6.92 Ratio (12.00-20.00); Calcium 8.6 mg/dL (8.7-10.3); Carbon Dioxide 27.6 mmol/L (20.0-27.5); Potassium 3.9 mmol/L (3.5-5.5)
--- NOTE | 2021-10-21 12:54 | P.PN ---
Subjective Progress Note Date: 10/21/21 CHIEF COMPLAINT: Right-sided colon mass HISTORY OF PRESENT ILLNESS: Patient is postop day #4 status post robotic laparoscopic right hemicolectomy and enterectomy. Patient does report abdominal pain. Patient reports his pain is controlled with pain medication. He denies any nausea or vomiting. He's currently been started on a low fiber diet. He denies any bowel movements. He may have had a smear of a BM per nursing yesterday. He is having flatus. Patient did walk with physical therapy. He had dizziness with walking. Physical therapy recommending subacute rehab. Patient wants to be discharged home. Patient seen by urology regarding urinary retention. They are recommending patient discharged with Suero catheter. Afebrile. WBC 10.4 for Hgb 11.1 platelets 256 sodium 141 potassium 3.9 creatinine 1.3 PHYSICAL EXAM: VITAL SIGNS: Reviewed GENERAL: Well-developed in no acute distress. HEENT: No sclera icterus. Extraocular movements grossly intact. Moist buccal mucosa. Head is atraumatic, normocephalic. Hears conversational speech. No nasal drainage. NECK: Supple without lymphadenopathy. CHEST: Non-labored respirations and equal bilateral excursions. CARDIOVASCULAR: Palpable 2+ radial pulses. ABDOMEN: Soft. Nondistended. Incision sites clean dry and intact. Abdominal binder in place. MUSCULOSKELETAL: No clubbing or cyanosis. NEUROLOGIC: No focal or lateralizing signs. Cranial nerves II through XII grossly intact. PSYCH: Appropriate affect. Alert and oriented to person, place and time. SKIN: Well perfused. Good skin turgor. ASSESSMENT: 1. Right-sided colon mass status post right hemicolectomy 2. Chronic iron deficiency anemia 3. Abdominal aortic aneurysm 4. Personal history of prostate cancer 5. Hyperlipidemia 6. Ischemic cardiomyopathy 7. 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 Coronary artery disease 9. Morbid obesity due to excess calories, BMI 35.9 10. Stage III chronic renal insufficiency due to hypertensive heart disease 11. History of multiple adenomatous colon 12. Sigmoid diverticulosis with pandiverticulosis 13. Depressive disorder 14. Generalized anxiety disorder 15. History of myocardial infarction 16. History of deep venous thrombosis PLAN: -Continue to monitor -Encourage patient to increase activity level -Continue supportive care -Continue Entereg until patient has large bowel movement -Continue pain medication as needed -Continue incentive spirometer use -Continue antibiotics -Continue Suero catheter for urinary retention per urology -DVT prophylaxis subcu heparin Physician Laborer note has been reviewed by physician. Signing provider agrees with the documented findings, assessment, and plan of care. Patient seen and evaluated. Recommend home healthcare and fellowships subacute rehab. Anticipated discharge in 24 hours pending home healthcare versus subacute rehab assessment. Objective - Vital Signs Vital signs: Vital Signs Temp 98.1 F 10/21/21 11:18 Pulse 63 10/21/21 11:18 Resp 16 10/21/21 11:18 BP 156/95 10/21/21 11:18 Pulse Ox 98 10/21/21 11:18 FiO2 Intake & Output 10/20/21 10/21/21 10/21/21 18:59 06:59 18:59 Output Total 2800 1360 700 Balance -2800 -1360 -700 Output: Urine 2800 1360 700 Other: Voiding Method Indwelling Catheter Indwelling Catheter Indwelling Catheter # Bowel Movements 1 - Labs CBC & Chem 7: 10/21/21 06:02 10/21/21 06:02 Labs: Abnormal Lab Results - Last 24 Hours (Table) 10/21/21 10/21/21 Range/Units 06:02 06:02 WBC 10.44 H (4.50-10.00) X 10*3/uL RBC 4.20 L (4.40-5.60) X 10*6/uL Hgb 11.1 L (13.0-17.0) g/dL Hct 35.2 L (39.6-50.0) % MCH 26.4 L (27.0-32.0) pg MCHC 31.5 L (32.0-37.0) g/dL RDW 15.1 H (11.5-14.5) % Immature Gran # 0.06 H (0.00-0.04) X 10*3/uL Monocytes # 1.01 H (0.20-1.00) X 10*3/uL Eosinophils # 0.36 H (0.04-0.35) X 10*3/uL Carbon Dioxide 27.6 H (20.0-27.5) mmol/L Anion Gap 8.40 L (10.00-18.00) mmol/L Est GFR (CKD-EPI)NonAf 53.0 L (60.0-200.0) BUN/Creatinine Ratio 6.92 L (12.00-20.00) Ratio Calcium 8.6 L (8.7-10.3) mg/dL
--- NOTE | 2021-10-21 14:29 | P.PN ---
Subjective Progress Note Date: 10/21/21 This is a 76 year male who presents to the hospital for scheduled surgical intervention regarding tubular adenoma, large neoplasm of the cecum. Patient is postoperative day #1 robotic-assisted da Bertha laparoscopic right hemicolectomy with enterectomy with Dr. Massey. Patient follows with Dr. Mare Agustin in the primary care setting, we are asked to see patient in medical consultation for management of his chronic conditions which include; coronary artery disease status post cardiac stenting, Deep Vein thrombosis, hypertension, hyperlipidemia, fibromyalgia, myocardial infarction, history of prostate cancer with a recent diagnosis of colon cancer. Patient is a former smoker for 30 years quit in 1997 does use marijuana daily. Home medications include buspirone, Effexor, Toprol-XL, Lasix, candesartan, atorvastatin, Xanax, Robaxin. Preoperative labs include a white count of 9.14, hemoglobin 11.2, sodium 141, potassium 3.5, BUN 10.8, creatinine 1.3 was 1.50 on admission, blood glucose 92. Liver enzymes are within normal limits. Vital Signs today showing temp 97.5, heart rate 71, blood pressure 146/79, 99% 2 L nasal cannula. Appropriate home medications will be resumed. Inpatient he is receiving IV Flagyl, IV cefazolin postoperatively. Continues on fluids D5 half-normal saline with 20 Meq potassium. Postoperative pain management as per primary. Indwelling haley cather in place. Creatinine today has increased up to 1.8, losartan will be placed on hold. 10/19/2021 Patient is postoperative day #2 laparoscopic right hemicolectomy with enterectomy. Currently maintained on a clear liquid diet. He is wearing abdominal binder. Nephrology has been consulted regarding elevated creatinine. Sodium of 132, potassium 3.7, BUN 18, creatinine is 1.68, magnesium 1.8. Iron studies are completed showing an iron level 23, TIBC 283, percent saturation 7.72, transferrin 209, ferritin 49.9. He continues on IV metronidazole. He continues on D5 half-normal saline with 20 Meqs of potassium which has been adjusted to normal saline for gentle hydration. patient is tolerated diet which will be advanced to full liquid today. Repeat labs tomorrow. Lasix and losartan are currently on hold. He is afebrile, heart rate 71, blood pressure 110/63, 93% room air. Patient has some scattered wheezing throughout will order as needed duonebs as well. 10/20/2021 patient is without asymmetry is postoperative day #3 right hemicolectomy and hysterectomy. He was advanced to full liquid diet and tolerating well. No nausea or vomiting. He denies bowel movement but is passing gas and his bowel sounds are more active today. He is using abdominal binder. His main complaint is pain in the right upper quadrant rating as 6 out of 10 but is stating that the pain medication is helping when he receives it. today his wheezing has improved he is using incentive spirometer, is also on DuoNeb's. IV fluids have been discontinued. white count today is 10.52, hemoglobin 10.8, sodium has improved now 140. Magnesium is now 2.2 after supplementation. Also his creatinine has improved and is now 1.4, has been resumed on losartan as blood pressure is elevated today at 145/88. 10/21/2021 Patient evaluated today he is postoperative day #4. He is being continued on entereg and needs to have large BM before discharge. No acute events overnight. His wheeze has improved, he is doing well on IS and has duonebs as needed. Losartan has been resumed, his creatinine today is 1.3. We will discontinue IV fluids. White count today 10.44, hgb 11.1. He is afebrile, heart rate 63, blood pressure 150/90s, he is 98% room air. Review of Systems Constitutional: Denied any fatigue denied any fever. Cardio vascular: denied any chest pain, palpitations Gastrointestinal: denied any nausea, vomiting, diarrhea, passing gas. Pulmonary: Denied any shortness of breath cough Neurologic denied any new focal deficits All inpatient medications were reviewed and appropriate changes in these medications as dictated in the interval history and assessment and plan. PHYSICAL EXAMINATION: GENERAL: The patient is alert and oriented x3, not in any acute distress. Well developed, well nourished. HEENT: Pupils are round and equally reacting to light. EOMI. No scleral icterus. No conjunctival pallor. Normocephalic, atraumatic. No pharyngeal erythema. No thyromegaly. CARDIOVASCULAR: S1 and S2 present. No murmurs, rubs, or gallops. PULMONARY: Chest is clear to auscultation, no wheezing or crackles. ABDOMEN: Soft, tender, nondistended, normoactive bowel sounds. No palpable organomegaly. Postsurgical abdomen with abdominal binder in place. MUSCULOSKELETAL: No joint swelling or deformity. EXTREMITIES: No cyanosis, clubbing, or pedal edema. NEUROLOGICAL: Gross neurological examination did not reveal any focal deficits. SKIN: No rashes. Assessment and plan Assessment Colon cancer patient is Postoperative day 4 Right hemicolectomy with enterectomy Leukocytosis on admission, improving Acute renal injury secondary to poor oral intake and medications, improved Chronic kidney disease Hyponatremia, resolved Hypertension Iron deficiency anemia Ischemic cardiomyopathy History of coronary artery disease status post stenting History DVT Hyperlipidemia History of prostate cancer Abdominal aortic aneurysm Former smoker Daily THC use Obesity GI Prophylaxis DVT Prophylaxis Subcu heparin Full Code Plan Losartan has been resumed Replace potassium, magnesium as needed Encourage ambulation, incentive spirometry Diet per primary Pain management per primary Thank you kindly for this consultation, we will follow patient along with primary this hospital stay The impression and plan of care has been dictated by Rubi Cid Nurse Practitioner as directed. Dr. Ara MD I have performed a history and physical examination and medical decision making of this patient, discussed the same with the dictator, and agree with the dictators assessment and plan as written, documented as a scribe. Based on total visit time, I have performed more than 50% of this visit. Objective - Vital Signs Vital signs: Vital Signs Temp 97.4 F L 10/21/21 04:18 Pulse 70 10/21/21 04:18 Resp 16 10/21/21 04:18 BP 165/90 10/21/21 04:18 Pulse Ox 94 L 10/21/21 04:18 FiO2 Intake & Output 10/20/21 10/21/21 10/21/21 18:59 06:59 18:59 Output Total 2800 1360 700 Balance -2800 -1360 -700 Output: Urine 2800 1360 700 Other: Voiding Method Indwelling Catheter Indwelling Catheter # Bowel Movements 1 - Labs CBC & Chem 7: 10/21/21 06:02 10/21/21 06:02 Labs: Abnormal Lab Results - Last 24 Hours (Table) 10/20/21 10/20/21 Range/Units 06:57 06:57 WBC 10.52 H (4.50-10.00) X 10*3/uL RBC 4.17 L (4.40-5.60) X 10*6/uL Hgb 10.8 L (13.0-17.0) g/dL Hct 34.9 L (39.6-50.0) % MCH 25.9 L (27.0-32.0) pg MCHC 30.9 L (32.0-37.0) g/dL RDW 15.1 H (11.5-14.5) % Immature Gran # 0.07 H (0.00-0.04) X 10*3/uL Neutrophils # 7.73 H (1.80-7.70) X 10*3/uL Monocytes # 1.25 H (0.20-1.00) X 10*3/uL Anion Gap 7.30 L (10.00-18.00) mmol/L Est GFR (CKD-EPI)AfAm 57.2 L (60.0-200.0) Est GFR (CKD-EPI)NonAf 49.3 L (60.0-200.0) BUN/Creatinine Ratio 7.75 L (12.00-20.00) Ratio Calcium 8.5 L (8.7-10.3) mg/dL Assessment and Plan Time with Patient: Less than 30
[2021-10-21] MEDS: IPRATROPIUM-ALBUTEROL 3 ML NEB INHALATION PRN (19:11)
[2021-10-21] MEDS: TAMSULOSIN 0.4 MG CAP.ER.24H PO SCH (20:31)
[2021-10-22] MEDS: LACTATED RINGERS 1,000 ML IV SCH ×3 (04:40→19:15)
[2021-10-22] MEDS: metroNIDAZOLE-NS PMX 500 MG in SALINE 1 100ML.BAG IVPB SCH ×3 (04:45→17:38)
[2021-10-22] MEDS: ACETAMINOPHEN TAB 500 MG TAB PO SCH ×3 (04:45→17:38)
[2021-10-22] MEDS: LOSARTAN 50 MG TAB PO SCH (08:53)
[2021-10-22] MEDS: HEPARIN SODIUM,PORCINE/PF 5,000 UNIT/0.5 ML SYRINGE SQ SCH ×2 (08:53→21:30)
[2021-10-22] MEDS: METOPROLOL SUCCINATE (ER) 100 MG TAB.ER.24H PO SCH (08:54)
[2021-10-22] MEDS: SIMETHICONE 40 MG/0.6 ML DROPS 2,000 MG/30 ML BOTTLE PO SCH ×4 (08:54→21:30)
[2021-10-22] MEDS: busPIRone HCl 10 MG TAB PO SCH (08:54)
[2021-10-22] MEDS: ATORVASTATIN 20 MG TAB PO SCH (08:54)
[2021-10-22] MEDS: ALPRAZolam 0.25 MG TAB PO SCH ×3 (08:54→21:30)
[2021-10-22] MEDS: VENLAFAXINE HCL ER 150 MG CAP PO SCH (08:54)
[2021-10-22] MEDS: amLODIPine 10 MG TAB PO SCH (08:54)
[2021-10-22] MEDS: methocarbamoL 750 MG TAB PO SCH ×2 (08:54→21:30)
[2021-10-22 10:51] LABS: Basophils % (A) 0 %; Eosinophils # (A) 0.4 k/uL (0-0.7); Eosinophils % (A) 4 %; HCT 36.8 % (39.0-53.0); HGB 11.8 gm/dL (13.0-17.5); Lymphocytes # (A) 0.9 k/uL (1.0-4.8); Lymphocytes % (A) 9 %; MCH 26.8 pg (25.0-35.0); MCHC 31.9 g/dL (31.0-37.0); Mean Platelet Volume 7.9; Monocytes # (A) 0.6 k/uL (0-1.0); Monocytes % (A) 6 %; Neutrophils % (A) 80 %; Platelet Count 289 k/uL (150-450); RBC 4.39 m/uL (4.30-5.90); RDW 14.9 % (11.5-15.5)
[2021-10-22 11:04] LABS: African American GFR (CKD) 73 (>60 ml/min/1.73 sqM); Anion Gap 3 mmol/L; Blood Urea Nitrogen 9 mg/dL (9-20); Calcium 8.6 mg/dL (8.4-10.2); Carbon Dioxide 32 mmol/L (22-30); Chloride 102 mmol/L (98-107); Glucose 133 mg/dL (74-99); Non-African American GFR(CKD) 63 (>60 ml/min/1.73 sqM); Potassium 3.6 mmol/L (3.5-5.1); Sodium 137 mmol/L (137-145)
[2021-10-22] MEDS: IPRATROPIUM-ALBUTEROL 3 ML NEB INHALATION PRN ×3 (11:38→19:47)
--- NOTE | 2021-10-22 13:05 | P.PN ---
Subjective Progress Note Date: 10/22/21 This is a 76 year male who presents to the hospital for scheduled surgical intervention regarding tubular adenoma, large neoplasm of the cecum. Patient is postoperative day #1 robotic-assisted da Bertha laparoscopic right hemicolectomy with enterectomy with Dr. Massey. Patient follows with Dr. Mare Agustin in the primary care setting, we are asked to see patient in medical consultation for management of his chronic conditions which include; coronary artery disease status post cardiac stenting, Deep Vein thrombosis, hypertension, hyperlipidemia, fibromyalgia, myocardial infarction, history of prostate cancer with a recent diagnosis of colon cancer. Patient is a former smoker for 30 years quit in 1997 does use marijuana daily. Home medications include buspirone, Effexor, Toprol-XL, Lasix, candesartan, atorvastatin, Xanax, Robaxin. Preoperative labs include a white count of 9.14, hemoglobin 11.2, sodium 141, potassium 3.5, BUN 10.8, creatinine 1.3 was 1.50 on admission, blood glucose 92. Liver enzymes are within normal limits. Vital Signs today showing temp 97.5, heart rate 71, blood pressure 146/79, 99% 2 L nasal cannula. Appropriate home medications will be resumed. Inpatient he is receiving IV Flagyl, IV cefazolin postoperatively. Continues on fluids D5 half-normal saline with 20 Meq potassium. Postoperative pain management as per primary. Indwelling haley cather in place. Creatinine today has increased up to 1.8, losartan will be placed on hold. 10/19/2021 Patient is postoperative day #2 laparoscopic right hemicolectomy with enterectomy. Currently maintained on a clear liquid diet. He is wearing abdominal binder. Nephrology has been consulted regarding elevated creatinine. Sodium of 132, potassium 3.7, BUN 18, creatinine is 1.68, magnesium 1.8. Iron studies are completed showing an iron level 23, TIBC 283, percent saturation 7.72, transferrin 209, ferritin 49.9. He continues on IV metronidazole. He continues on D5 half-normal saline with 20 Meqs of potassium which has been adjusted to normal saline for gentle hydration. patient is tolerated diet which will be advanced to full liquid today. Repeat labs tomorrow. Lasix and losartan are currently on hold. He is afebrile, heart rate 71, blood pressure 110/63, 93% room air. Patient has some scattered wheezing throughout will order as needed duonebs as well. 10/20/2021 patient is without asymmetry is postoperative day #3 right hemicolectomy and enterectomy. He was advanced to full liquid diet and tolerating well. No nausea or vomiting. He denies bowel movement but is passing gas and his bowel sounds are more active today. He is using abdominal binder. His main complaint is pain in the right upper quadrant rating as 6 out of 10 but is stating that the pain medication is helping when he receives it. today his wheezing has improved he is using incentive spirometer, is also on DuoNeb's. IV fluids have been discontinued. white count today is 10.52, hemoglobin 10.8, sodium has improved now 140. Magnesium is now 2.2 after supplementation. Also his creatinine has improved and is now 1.4, has been resumed on losartan as blood pressure is elevated today at 145/88. 10/21/2021 Patient evaluated today he is postoperative day #4. He is being continued on entereg and needs to have large BM before discharge. No acute events overnight. His wheeze has improved, he is doing well on IS and has duonebs as needed. Losartan has been resumed, his creatinine today is 1.3. We will discontinue IV fluids. White count today 10.44, hgb 11.1. He is afebrile, heart rate 63, blood pressure 150/90s, he is 98% room air. 10/22/2021 Patient today is sitting up in the chair. He is post operative day #5 right hemicolectomy and enterectomy. Reports moderate size loose BM throughout the evening. Positive bowel sounds. He is tolerating diet. No fever, no chills. No chest pain, shortness of breath. He has minimal expiratory wheeze and he continues to use incentive spirometer and has duonebs as needed. Fluids were discontinued yesterday, they were still infusing at 50 mls per hour throughout the night. Blood pressure today is elevated 180/100s and he was started on norvasc. He continues on losartan. Creatinine today 1.13. Plan to resume lasix tomorrow. Urology has evaluated patient in consultation and is recommending discharge with [facility] and follow up in the office on the . Labs reviewed today showing white count 10.0, hgb 11.8, sodium 137, potassium 3.6, creatinine 1.13, glucose 133, calcium 8.6. Review of Systems Constitutional: Denied any fatigue denied any fever. Cardio vascular: denied any chest pain, palpitations Gastrointestinal: denied any nausea, vomiting, diarrhea, passing gas. Pulmonary: Denied any shortness of breath cough Neurologic denied any new focal deficits All inpatient medications were reviewed and appropriate changes in these medications as dictated in the interval history and assessment and plan. PHYSICAL EXAMINATION: GENERAL: The patient is alert and oriented x3, not in any acute distress. Well developed, well nourished. HEENT: Pupils are round and equally reacting to light. EOMI. No scleral icterus. No conjunctival pallor. Normocephalic, atraumatic. No pharyngeal erythema. No thyromegaly. CARDIOVASCULAR: S1 and S2 present. No murmurs, rubs, or gallops. PULMONARY: Faint expiratory wheeze noted. ABDOMEN: Soft, tender, nondistended, normoactive bowel sounds. No palpable organomegaly. Postsurgical abdomen with abdominal binder in place. MUSCULOSKELETAL: No joint swelling or deformity. EXTREMITIES: No cyanosis, clubbing, or pedal edema. NEUROLOGICAL: Gross neurological examination did not reveal any focal deficits. SKIN: No rashes. Assessment and plan Assessment Colon cancer patient is Postoperative day 5 Right hemicolectomy with enterectomy Leukocytosis on admission, resolved Acute renal injury secondary to poor oral intake and medications, resolved Chronic kidney disease Hyponatremia, resolved Hypertension Iron deficiency anemia Ischemic cardiomyopathy History of coronary artery disease status post stenting History DVT Hyperlipidemia History of prostate cancer Abdominal aortic aneurysm Former smoker Daily THC use Obesity GI Prophylaxis DVT Prophylaxis Subcu heparin Full Code Plan Losartan has been resumed, norvasc added today Replace potassium, magnesium as needed Encourage ambulation, incentive spirometry Diet per primary Pain management per primary IV fluids have been discontinued, resume lasix tomorrow Plan for discharge to subacute rehab Medically if prior auth for rehab is obtained tomorrow patient will be cleared for discharge. Thank you kindly for this consultation, we will follow patient along with primary this hospital stay The impression and plan of care has been dictated by Rubi Cid Nurse Practitioner as directed. Dr. Ara MD I have performed a history and physical examination and medical decision making of this patient, discussed the same with the dictator, and agree with the dictators assessment and plan as written, documented as a scribe. Based on total visit time, I have performed more than 50% of this visit. Objective - Vital Signs Vital signs: Vital Signs Temp 98.1 F 10/22/21 11:13 Pulse 66 10/22/21 11:39 Resp 18 10/22/21 11:13 BP 169/109 10/22/21 11:13 Pulse Ox 98 10/22/21 11:13 FiO2 21 10/21/21 19:13 Intake & Output 10/21/21 10/22/21 10/22/21 18:59 06:59 18:59 Intake Total 640 Output Total 1550 1999 1400 Balance -1550 -1360 -1400 Intake: Oral 640 Output: Urine 1550 1999 1399 Other: Voiding Method Indwelling Catheter Indwelling Catheter # Bowel Movements 1 1 - Labs CBC & Chem 7: 10/22/21 10:20 10/22/21 10:20 Labs: Abnormal Lab Results - Last 24 Hours (Table) 10/22/21 10/22/21 Range/Units 10:20 10:20 Hgb 11.8 L (13.0-17.5) gm/dL Hct 36.8 L (39.0-53.0) % Neutrophils # 8.0 H (1.3-7.7) k/uL Lymphocytes # 0.9 L (1.0-4.8) k/uL Carbon Dioxide 32 H (22-30) mmol/L Glucose 133 H (74-99) mg/dL Assessment and Plan Time with Patient: Less than 30
--- NOTE | 2021-10-22 13:31 | P.PN ---
Subjective Progress Note Date: 10/22/21 CHIEF COMPLAINT: Right-sided colon mass HISTORY OF PRESENT ILLNESS: Patient is postop day #5 status post robotic laparoscopic right hemicolectomy. Patient denies any abdominal pain. Denies any nausea or vomiting. Patient is having flatus. Patient chart does report bowel movements. He did work with physical therapy and they recommended subacute rehab. radiation oncology manager is working on placement at [facility]. They are awaiting prior authorization. Afebrile. WBC is 10 A should be 11.8 platelets 289 sodium was 137 potassium is 3.6 creatinine 1.13 PHYSICAL EXAM: VITAL SIGNS: Reviewed GENERAL: Well-developed in no acute distress. HEENT: No sclera icterus. Extraocular movements grossly intact. Moist buccal mucosa. Head is atraumatic, normocephalic. Hears conversational speech. No nasal drainage. NECK: Supple without lymphadenopathy. CHEST: Non-labored respirations and equal bilateral excursions. CARDIOVASCULAR: Palpable 2+ radial pulses. ABDOMEN: Soft. Nondistended. Incision sites clean dry and intact. Abdominal binder in place. MUSCULOSKELETAL: No clubbing or cyanosis. NEUROLOGIC: No focal or lateralizing signs. Cranial nerves II through XII grossly intact. PSYCH: Appropriate affect. Alert and oriented to person, place and time. SKIN: Well perfused. Good skin turgor. ASSESSMENT: 1. Right-sided colon mass status post right hemicolectomy 2. Chronic iron deficiency anemia 3. Abdominal aortic aneurysm 4. Personal history of prostate cancer 5. Hyperlipidemia 6. Ischemic cardiomyopathy 7. 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 Coronary artery disease 9. Morbid obesity due to excess calories, BMI 35.9 10. Stage III chronic renal insufficiency due to hypertensive heart disease 11. History of multiple adenomatous colon 12. Sigmoid diverticulosis with pandiverticulosis 13. Depressive disorder 14. Generalized anxiety disorder 15. History of myocardial infarction 16. History of deep venous thrombosis PLAN: -Awaiting insurance authorization for ECF placement -Anticipating discharge tomorrow -Continue to monitor -Encourage patient to increase activity level -Continue supportive care -Entereg discontinued. Patient having bowel movements -Continue pain medication as needed -Continue incentive spirometer use -Continue antibiotics -Continue Suero catheter for urinary retention per urology -DVT prophylaxis subcu heparin Physician Leach Runner note has been reviewed by physician. Signing provider agrees with the documented findings, assessment, and plan of care. Objective - Vital Signs Vital signs: Vital Signs Temp 98.1 F 10/22/21 11:13 Pulse 68 10/22/21 11:52 Resp 18 10/22/21 11:13 BP 169/109 10/22/21 11:13 Pulse Ox 98 10/22/21 11:13 FiO2 21 10/21/21 19:13 Intake & Output 10/21/21 10/22/21 10/22/21 18:59 06:59 18:59 Intake Total 640 Output Total 1550 1999 1400 Balance -1550 -1360 -1400 Intake: Oral 640 Output: Urine 1550 1999 1399 Other: Voiding Method Indwelling Catheter Indwelling Catheter Indwelling Catheter # Bowel Movements 1 1 - Labs CBC & Chem 7: 10/22/21 10:20 10/22/21 10:20 Labs: Abnormal Lab Results - Last 24 Hours (Table) 10/22/21 10/22/21 Range/Units 10:20 10:20 Hgb 11.8 L (13.0-17.5) gm/dL Hct 36.8 L (39.0-53.0) % Neutrophils # 8.0 H (1.3-7.7) k/uL Lymphocytes # 0.9 L (1.0-4.8) k/uL Carbon Dioxide 32 H (22-30) mmol/L Glucose 133 H (74-99) mg/dL
[2021-10-22] MEDS ORDERED: FUROSEMIDE 10 MG/ML 4 ML VIAL IV STA (15:45)
--- NOTE | 2021-10-22 15:45 | P.PN ---
Subjective Patient is seen for follow-up for acute kidney injury Renal function has improved. Patient is off of IV fluids and diuretics. He is maintained on Cozaar and is tolerating it well. Creatinine is down to 1.1 from 1.8 at peak. No significant complaints today. Objective - Vital Signs Vital signs: Vital Signs Temp 98.1 F 10/22/21 11:13 Pulse 68 10/22/21 11:52 Resp 18 10/22/21 11:13 BP 169/109 10/22/21 11:13 Pulse Ox 98 10/22/21 11:13 FiO2 21 10/21/21 19:13 Intake & Output 10/21/21 10/22/21 10/22/21 18:59 06:59 18:59 Intake Total 640 Output Total 1550 1999 2099 Balance -1550 -1360 -2099 Intake: Oral 640 Output: Urine 0 1999 2099 Other: Voiding Method Indwelling Catheter Indwelling Catheter Indwelling Catheter # Bowel Movements 1 1 1 - Exam Comfortable awake, not in any acute distress Alert oriented 3 Examination of the heart S1 and S2 Examination of the lungs bilateral breath sounds are heard Abdomen is soft nontender Examination of the lower extremities shows chronic skin changes, edema 1+ bilaterally - Labs CBC & Chem 7: 10/22/21 10:20 10/22/21 10:20 Labs: Abnormal Lab Results - Last 24 Hours (Table) 10/22/21 10/22/21 Range/Units 10:20 10:20 Hgb 11.8 L (13.0-17.5) gm/dL Hct 36.8 L (39.0-53.0) % Neutrophils # 8.0 H (1.3-7.7) k/uL Lymphocytes # 0.9 L (1.0-4.8) k/uL Carbon Dioxide 32 H (22-30) mmol/L Glucose 133 H (74-99) mg/dL Assessment and Plan Assessment: 1. Acute kidney injury, prerenal and secondary to urine retention. Currently improved 2. Chronic kidney disease stage IIIB with baseline creatinine around 1.5 with grams per deciliter. Etiology secondary to nephrosclerosis and polycystic kidney disease 3. Colon cancer status post right hemicolectomy on 10/17/2021 4. Urine retention currently with indwelling Suero catheter 5. Hypertension, uncontrolled partly volume sensitive. Currently off of IV fluids. Plan: IV Lasix 1 Add hydrochlorothiazide Add hydralazine if blood pressure remains uncontrolled
[2021-10-22] MEDS: hydroCHLOROthiazide 25 MG TAB PO SCH (16:12)
[2021-10-22] MEDS: TAMSULOSIN 0.4 MG CAP.ER.24H PO SCH (21:30)
[2021-10-23] MEDS: metroNIDAZOLE-NS PMX 500 MG in SALINE 1 100ML.BAG IVPB SCH ×4 (00:11→18:07)
[2021-10-23] MEDS: ACETAMINOPHEN TAB 500 MG TAB PO SCH ×5 (00:11→23:27)
[2021-10-23] MEDS: IPRATROPIUM-ALBUTEROL 3 ML NEB INHALATION PRN ×4 (07:15→19:38)
[2021-10-23] MEDS: HEPARIN SODIUM,PORCINE/PF 5,000 UNIT/0.5 ML SYRINGE SQ SCH ×2 (08:33→20:47)
[2021-10-23] MEDS: METOPROLOL SUCCINATE (ER) 100 MG TAB.ER.24H PO SCH (08:34)
[2021-10-23] MEDS: ATORVASTATIN 20 MG TAB PO SCH (08:34)
[2021-10-23] MEDS: VENLAFAXINE HCL ER 150 MG CAP PO SCH (08:34)
[2021-10-23] MEDS: amLODIPine 10 MG TAB PO SCH (08:34)
[2021-10-23] MEDS: methocarbamoL 750 MG TAB PO SCH ×2 (08:34→20:47)
[2021-10-23] MEDS: ALPRAZolam 0.25 MG TAB PO SCH ×3 (08:34→20:47)
[2021-10-23] MEDS: hydroCHLOROthiazide 25 MG TAB PO SCH (08:34)
[2021-10-23] MEDS: busPIRone HCl 10 MG TAB PO SCH (08:34)
[2021-10-23] MEDS: LOSARTAN 50 MG TAB PO SCH (08:34)
[2021-10-23] MEDS: SIMETHICONE 40 MG/0.6 ML DROPS 2,000 MG/30 ML BOTTLE PO SCH ×4 (08:35→20:48)
[2021-10-23 08:53] LABS: Basophils # (A) 0.03 X 10*3/uL (0.00-0.10); Basophils % (A) 0.3 %; Eosinophils # (A) 0.36 X 10*3/uL (0.04-0.35); Eosinophils % (A) 3.5 %; HCT 38.5 % (39.6-50.0); HGB 12.3 g/dL (13.0-17.0); Immature Grans, Automated 0.6 %; Lymphocytes # (A) 1.25 X 10*3/uL (0.90-5.00); Lymphocytes % (A) 12.3 %; MCHC 31.9 g/dL (32.0-37.0); MCV 81.4 fL (80.0-97.0); Mean Platelet Volume 10.4 fL (9.5-12.2); Monocytes # (A) 0.99 X 10*3/uL (0.20-1.00); Monocytes % (A) 9.7 %; NRBC Per 100 WBC 0 /100 WBCS (0.0-0.0); Neutrophils % (A) 73.6 %; Platelet Count 308 X 10*3/uL (140-440); RBC 4.73 X 10*6/uL (4.40-5.60); RDW 15.4 % (11.5-14.5); WBC 10.19 X 10*3/uL (4.50-10.00)
[2021-10-23 08:59] LABS: African American GFR (CKD) 59.8 (60.0-200.0); Anion Gap 9.7 mmol/L (10.00-18.00); BUN/Creat Ratio 6.29 Ratio (12.00-20.00); Blood Urea Nitrogen 8.4 mg/dL (9.0-27.0); Calcium 9.4 mg/dL (8.7-10.3); Carbon Dioxide 33.5 mmol/L (20.0-27.5); Non-African American GFR(CKD) 51.6 (60.0-200.0); Potassium 3.4 mmol/L (3.5-5.5)
[2021-10-23] MEDS ORDERED: POTASSIUM CHLORIDE ER 20 MEQ TAB.ER PO STA (09:47)
--- NOTE | 2021-10-23 12:50 | P.PN ---
Subjective Progress Note Date: 10/23/21 CHIEF COMPLAINT: Right-sided colon mass HISTORY OF PRESENT ILLNESS: Patient is postop day #6 status post robotic laparoscopic right hemicolectomy. Patient denies any abdominal pain. Denies any nausea or vomiting. Patient is having flatus and bowel movements. He is tolerating diet. Afebrile. Patient's hypertension showing improvement. Medicine service has just blood pressure medications. Patient did receive a dose of IV Lasix yesterday. WBC 10.19 Hgb 12.3 platelets 308 sodium is 141 potassium is 3.4 creatinine 1.3. PHYSICAL EXAM: VITAL SIGNS: Reviewed GENERAL: Well-developed in no acute distress. HEENT: No sclera icterus. Extraocular movements grossly intact. Moist buccal mucosa. Head is atraumatic, normocephalic. Hears conversational speech. No nasal drainage. NECK: Supple without lymphadenopathy. CHEST: Non-labored respirations and equal bilateral excursions. CARDIOVASCULAR: Palpable 2+ radial pulses. ABDOMEN: Soft. Nondistended. Incision sites clean dry and intact. Abdominal binder in place. MUSCULOSKELETAL: No clubbing or cyanosis. NEUROLOGIC: No focal or lateralizing signs. Cranial nerves II through XII grossly intact. PSYCH: Appropriate affect. Alert and oriented to person, place and time. SKIN: Well perfused. Good skin turgor. ASSESSMENT: 1. Right-sided colon mass status post right hemicolectomy 2. Chronic iron deficiency anemia 3. Abdominal aortic aneurysm 4. Personal history of prostate cancer 5. Hyperlipidemia 6. Ischemic cardiomyopathy 7. 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 Coronary artery disease 9. Morbid obesity due to excess calories, BMI 35.9 10. Stage III chronic renal insufficiency due to hypertensive heart disease 11. History of multiple adenomatous colon 12. Sigmoid diverticulosis with pandiverticulosis 13. Depressive disorder 14. Generalized anxiety disorder 15. History of myocardial infarction 16. History of deep venous thrombosis 17. Hypokalemia PLAN: -Awaiting insurance authorization for ECF placement -Anticipating discharge tomorrow -Patient received potassium supplement -Continue to monitor -Encourage patient to increase activity level -Continue supportive care -Continue pain medication as needed -Continue incentive spirometer use -Continue antibiotics -Continue Suero catheter for urinary retention per urology until 10/27/21 -DVT prophylaxis subcu heparin Physician Real Estate Firm Manager note has been reviewed by physician. Signing provider agrees with the documented findings, assessment, and plan of care. Objective - Vital Signs Vital signs: Vital Signs Temp 97.8 F 10/23/21 12:00 Pulse 79 10/23/21 12:00 Resp 18 10/23/21 12:00 BP 119/79 10/23/21 12:00 Pulse Ox 95 10/23/21 12:00 FiO2 21 10/22/21 19:48 Intake & Output 10/22/21 10/23/21 10/23/21 18:59 06:59 18:59 Intake Total 200 Output Total 4700 3575 Balance -4214 -6427 Intake: Oral 200 Output: Urine 4700 3575 Other: Voiding Method Indwelling Catheter Indwelling Catheter Indwelling Catheter # Bowel Movements 1 - Labs CBC & Chem 7: 10/23/21 05:28 10/23/21 05:28 Labs: Abnormal Lab Results - Last 24 Hours (Table) 10/23/21 10/23/21 Range/Units 05:28 05:28 WBC 10.19 H (4.50-10.00) X 10*3/uL Hgb 12.3 L (13.0-17.0) g/dL Hct 38.5 L (39.6-50.0) % MCH 26.0 L (27.0-32.0) pg MCHC 31.9 L (32.0-37.0) g/dL RDW 15.4 H (11.5-14.5) % Immature Gran # 0.06 H (0.00-0.04) X 10*3/uL Eosinophils # 0.36 H (0.04-0.35) X 10*3/uL Potassium 3.4 L (3.5-5.5) mmol/L Carbon Dioxide 33.5 H (20.0-27.5) mmol/L Anion Gap 9.70 L (10.00-18.00) mmol/L BUN 8.4 L (9.0-27.0) mg/dL Est GFR (CKD-EPI)AfAm 59.8 L (60.0-200.0) Est GFR (CKD-EPI)NonAf 51.6 L (60.0-200.0) BUN/Creatinine Ratio 6.29 L (12.00-20.00) Ratio
--- NOTE | 2021-10-23 14:25 | P.PN ---
Subjective Progress Note Date: 10/23/21 This is a 76 year male who presents to the hospital for scheduled surgical intervention regarding tubular adenoma, large neoplasm of the cecum. Patient is postoperative day #1 robotic-assisted da Bertha laparoscopic right hemicolectomy with enterectomy with Dr. Massey. Patient follows with Dr. Mare Agustin in the primary care setting, we are asked to see patient in medical consultation for management of his chronic conditions which include; coronary artery disease status post cardiac stenting, Deep Vein thrombosis, hypertension, hyperlipidemia, fibromyalgia, myocardial infarction, history of prostate cancer with a recent diagnosis of colon cancer. Patient is a former smoker for 30 years quit in 1997 does use marijuana daily. Home medications include buspirone, Effexor, Toprol-XL, Lasix, candesartan, atorvastatin, Xanax, Robaxin. Preoperative labs include a white count of 9.14, hemoglobin 11.2, sodium 141, potassium 3.5, BUN 10.8, creatinine 1.3 was 1.50 on admission, blood glucose 92. Liver enzymes are within normal limits. Vital Signs today showing temp 97.5, heart rate 71, blood pressure 146/79, 99% 2 L nasal cannula. Appropriate home medications will be resumed. Inpatient he is receiving IV Flagyl, IV cefazolin postoperatively. Continues on fluids D5 half-normal saline with 20 Meq potassium. Postoperative pain management as per primary. Indwelling haley cather in place. Creatinine today has increased up to 1.8, losartan will be placed on hold. 10/19/2021 Patient is postoperative day #2 laparoscopic right hemicolectomy with enterectomy. Currently maintained on a clear liquid diet. He is wearing abdominal binder. Nephrology has been consulted regarding elevated creatinine. Sodium of 132, potassium 3.7, BUN 18, creatinine is 1.68, magnesium 1.8. Iron studies are completed showing an iron level 23, TIBC 283, percent saturation 7.72, transferrin 209, ferritin 49.9. He continues on IV metronidazole. He continues on D5 half-normal saline with 20 Meqs of potassium which has been adjusted to normal saline for gentle hydration. patient is tolerated diet which will be advanced to full liquid today. Repeat labs tomorrow. Lasix and losartan are currently on hold. He is afebrile, heart rate 71, blood pressure 110/63, 93% room air. Patient has some scattered wheezing throughout will order as needed duonebs as well. 10/20/2021 patient is without asymmetry is postoperative day #3 right hemicolectomy and enterectomy. He was advanced to full liquid diet and tolerating well. No nausea or vomiting. He denies bowel movement but is passing gas and his bowel sounds are more active today. He is using abdominal binder. His main complaint is pain in the right upper quadrant rating as 6 out of 10 but is stating that the pain medication is helping when he receives it. today his wheezing has improved he is using incentive spirometer, is also on DuoNeb's. IV fluids have been discontinued. white count today is 10.52, hemoglobin 10.8, sodium has improved now 140. Magnesium is now 2.2 after supplementation. Also his creatinine has improved and is now 1.4, has been resumed on losartan as blood pressure is elevated today at 145/88. 10/21/2021 Patient evaluated today he is postoperative day #4. He is being continued on entereg and needs to have large BM before discharge. No acute events overnight. His wheeze has improved, he is doing well on IS and has duonebs as needed. Losartan has been resumed, his creatinine today is 1.3. We will discontinue IV fluids. White count today 10.44, hgb 11.1. He is afebrile, heart rate 63, blood pressure 150/90s, he is 98% room air. 10/22/2021 Patient today is sitting up in the chair. He is post operative day #5 right hemicolectomy and enterectomy. Reports moderate size loose BM throughout the evening. Positive bowel sounds. He is tolerating diet. No fever, no chills. No chest pain, shortness of breath. He has minimal expiratory wheeze and he continues to use incentive spirometer and has duonebs as needed. Fluids were discontinued yesterday, they were still infusing at 50 mls per hour throughout the night. Blood pressure today is elevated 180/100s and he was started on norvasc. He continues on losartan. Creatinine today 1.13. Plan to resume lasix tomorrow. Urology has evaluated patient in consultation and is recommending discharge with [facility] and follow up in the office on the . Labs reviewed today showing white count 10.0, hgb 11.8, sodium 137, potassium 3.6, creatinine 1.13, glucose 133, calcium 8.6. 10/23/2021 Patient is evaluated today sitting up in the chair. Lungs are clear today. Nephrology is following patient and has started hydrochlorothiazide and he will also be resumed on oral lasix. He did receive a one time dose of IV lasix yesterday. He had a good size BM overnight and states his abdominal pain is improving slowly. Tolerating diet. He is afebrile, blood pressure now 119/79. He is using Incentive spirometer. He will discharge with [facility] and see urology outpatient. Creatinine today 1.3, sodium 141, white count 10.19, hgb 12.3. He did receive oral potassium supplementation today. Review of Systems Constitutional: Denied any fatigue denied any fever. Cardio vascular: denied any chest pain, palpitations Gastrointestinal: denied any nausea, vomiting, diarrhea, passing gas. Pulmonary: Denied any shortness of breath cough Neurologic denied any new focal deficits All inpatient medications were reviewed and appropriate changes in these medications as dictated in the interval history and assessment and plan. PHYSICAL EXAMINATION: GENERAL: The patient is alert and oriented x3, not in any acute distress. Well developed, well nourished. HEENT: Pupils are round and equally reacting to light. EOMI. No scleral icterus. No conjunctival pallor. Normocephalic, atraumatic. No pharyngeal erythema. No thyromegaly. CARDIOVASCULAR: S1 and S2 present. No murmurs, rubs, or gallops. PULMONARY: Lungs are clear ABDOMEN: Soft, tender, nondistended, normoactive bowel sounds. No palpable organomegaly. Postsurgical abdomen with abdominal binder in place. MUSCULOSKELETAL: No joint swelling or deformity. EXTREMITIES: No cyanosis, clubbing, or pedal edema. NEUROLOGICAL: Gross neurological examination did not reveal any focal deficits. SKIN: No rashes. Assessment and plan Assessment Colon cancer patient is Postoperative day 6 Right hemicolectomy with enterectomy Leukocytosis on admission, resolved Acute renal injury secondary to poor oral intake and medications, improved Chronic kidney disease Hyponatremia, resolved Hypertension Iron deficiency anemia Ischemic cardiomyopathy History of coronary artery disease status post stenting History DVT Hyperlipidemia History of prostate cancer Abdominal aortic aneurysm Former smoker Daily THC use Obesity GI Prophylaxis DVT Prophylaxis Subcu heparin Full Code Plan Continue on current blood pressure medications, diuretics Replace potassium, magnesium as needed Encourage ambulation, incentive spirometry Diet per primary Pain management per primary Plan for discharge to subacute rehab Patient is medically cleared for discharge. Thank you kindly for this consultation, we will follow patient along with primary this hospital stay The impression and plan of care has been dictated by Rubi Cid, Nurse Practitioner as directed. Dr. Ara MD I have performed a history and physical examination and medical decision making of this patient, discussed the same with the dictator, and agree with the dictators assessment and plan as written, documented as a scribe. Based on total visit time, I have performed more than 50% of this visit. Objective - Vital Signs Vital signs: Vital Signs Temp 98.2 F 10/23/21 05:00 Pulse 72 10/23/21 07:25 Resp 16 10/23/21 05:00 BP 161/97 10/23/21 05:00 Pulse Ox 98 10/23/21 05:00 FiO2 21 10/22/21 19:48 Intake & Output 10/22/21 10/23/21 10/23/21 18:59 06:59 18:59 Intake Total 200 Output Total 4700 3575 Balance -4700 -3375 Intake: Oral 200 Output: Urine 4700 3575 Other: Voiding Method Indwelling Catheter Indwelling Catheter # Bowel Movements 1 - Labs CBC & Chem 7: 10/23/21 05:28 10/23/21 05:28 Labs: Abnormal Lab Results - Last 24 Hours (Table) 10/22/21 10/22/21 10/23/21 Range/Units 10:20 10:20 05:28 WBC 10.19 H (4.50-10.00) X 10*3/uL Hgb 11.8 L 12.3 L (13.0-17.5) gm/dL Hct 36.8 L 38.5 L (39.0-53.0) % MCH 26.0 L (27.0-32.0) pg MCHC 31.9 L (32.0-37.0) g/dL RDW 15.4 H (11.5-14.5) % Immature Gran # 0.06 H (0.00-0.04) X 10*3/uL Neutrophils # 8.0 H (1.3-7.7) k/uL Lymphocytes # 0.9 L (1.0-4.8) k/uL Eosinophils # 0.36 H (0.04-0.35) X 10*3/uL Potassium (3.5-5.5) mmol/L Carbon Dioxide 32 H (22-30) mmol/L Anion Gap (10.00-18.00) mmol/L BUN (9.0-27.0) mg/dL Est GFR (CKD-EPI)AfAm (60.0-200.0) Est GFR (CKD-EPI)NonAf (60.0-200.0) BUN/Creatinine Ratio (12.00-20.00) Ratio Glucose 133 H (74-99) mg/dL 10/23/21 Range/Units 05:28 WBC (4.50-10.00) X 10*3/uL Hgb (13.0-17.5) gm/dL Hct (39.0-53.0) % MCH (27.0-32.0) pg MCHC (32.0-37.0) g/dL RDW (11.5-14.5) % Immature Gran # (0.00-0.04) X 10*3/uL Neutrophils # (1.3-7.7) k/uL Lymphocytes # (1.0-4.8) k/uL Eosinophils # (0.04-0.35) X 10*3/uL Potassium 3.4 L (3.5-5.5) mmol/L Carbon Dioxide 33.5 H (22-30) mmol/L Anion Gap 9.70 L (10.00-18.00) mmol/L BUN 8.4 L (9.0-27.0) mg/dL Est GFR (CKD-EPI)AfAm 59.8 L (60.0-200.0) Est GFR (CKD-EPI)NonAf 51.6 L (60.0-200.0) BUN/Creatinine Ratio 6.29 L (12.00-20.00) Ratio Glucose (74-99) mg/dL Assessment and Plan Time with Patient: Less than 30
[2021-10-23] MEDS: TAMSULOSIN 0.4 MG CAP.ER.24H PO SCH (20:47)
[2021-10-24] MEDS: metroNIDAZOLE-NS PMX 500 MG in SALINE 1 100ML.BAG IVPB SCH ×3 (00:45→12:04)
[2021-10-24 05:09] VITALS: RESP 18
[2021-10-24] MEDS: ACETAMINOPHEN TAB 500 MG TAB PO SCH ×2 (05:27→12:04)
[2021-10-24] MEDS: IPRATROPIUM-ALBUTEROL 3 ML NEB INHALATION PRN ×2 (08:42→11:46)
[2021-10-24 08:57] LABS: Basophils % (A) 0 %; Eosinophils # (A) 0.4 k/uL (0-0.7); Eosinophils % (A) 4 %; HCT 41.4 % (39.0-53.0); HGB 13.6 gm/dL (13.0-17.5); Lymphocytes # (A) 1.3 k/uL (1.0-4.8); Lymphocytes % (A) 13 %; MCH 27.9 pg (25.0-35.0); MCHC 32.9 g/dL (31.0-37.0); MCV 84.9 fL (80.0-100.0); Mean Platelet Volume 7.9; Monocytes # (A) 0.6 k/uL (0-1.0); Monocytes % (A) 6 %; Neutrophils # (A) 7.6 k/uL (1.3-7.7); Neutrophils % (A) 76 %; Platelet Count 324 k/uL (150-450); RBC 4.88 m/uL (4.30-5.90); RDW 15.5 % (11.5-15.5)
[2021-10-24] MEDS ORDERED: POTASSIUM CHLORIDE ER 10 MEQ TAB.ER.PRT PO SCH (09:00)
[2021-10-24] MEDS ORDERED: FUROSEMIDE 40 MG TAB PO SCH (09:00)
[2021-10-24 09:06] LABS: African American GFR (CKD) 60 (>60 ml/min/1.73 sqM); Anion Gap 5 mmol/L; Blood Urea Nitrogen 12 mg/dL (9-20); Calcium 8.9 mg/dL (8.4-10.2); Carbon Dioxide 31 mmol/L (22-30); Chloride 101 mmol/L (98-107); Glucose 149 mg/dL (74-99); Non-African American GFR(CKD) 52 (>60 ml/min/1.73 sqM); Potassium 3.5 mmol/L (3.5-5.1); Sodium 137 mmol/L (137-145)
[2021-10-24] MEDS: busPIRone HCl 10 MG TAB PO SCH (10:06)
[2021-10-24] MEDS: ATORVASTATIN 20 MG TAB PO SCH (10:06)
[2021-10-24] MEDS: methocarbamoL 750 MG TAB PO SCH (10:06)
[2021-10-24] MEDS: VENLAFAXINE HCL ER 150 MG CAP PO SCH (10:06)
[2021-10-24] MEDS: ALPRAZolam 0.25 MG TAB PO SCH ×2 (10:07→16:18)
[2021-10-24] MEDS: amLODIPine 10 MG TAB PO SCH (10:07)
[2021-10-24] MEDS: HEPARIN SODIUM,PORCINE/PF 5,000 UNIT/0.5 ML SYRINGE SQ SCH (10:07)
[2021-10-24] MEDS: LOSARTAN 50 MG TAB PO SCH (10:07)
[2021-10-24] MEDS: hydroCHLOROthiazide 25 MG TAB PO SCH (10:07)
[2021-10-24] MEDS: METOPROLOL SUCCINATE (ER) 100 MG TAB.ER.24H PO SCH (10:07)
[2021-10-24] MEDS: SIMETHICONE 40 MG/0.6 ML DROPS 2,000 MG/30 ML BOTTLE PO SCH ×2 (10:22→14:01)
--- NOTE | 2021-10-24 12:01 | P.DS ---
Providers Date of admission: 10/17/21 13:22 Expected date of discharge: 10/24/21 Attending physician: Renetta Vora Consults: 10/17/21 18:17 Consult Physician Routine Consulting Provider: Luis Alberto Bullock Consult Reason/Comments: Medical management Do you want consulting provider notified?: Yes 10/18/21 13:44 Consult Physician Routine Consulting Provider: Eva Hicks Consult Reason/Comments: Acute renal failure Do you want consulting provider notified?: Yes 10/20/21 12:41 Consult Physician Routine Consulting Provider: Filemon Stafford Consult Reason/Comments: urinary retention known prostate disorder Do you want consulting provider notified?: Yes Primary care physician: Tomi Agustin [facility] Course: Discharge diagnosis 1. Right-sided colon mass status post right hemicolectomy 2. Chronic iron deficiency anemia 3. Abdominal aortic aneurysm 4. Personal history of prostate cancer 5. Hyperlipidemia 6. Ischemic cardiomyopathy 7. 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 Coronary artery disease 9. Morbid obesity due to excess calories, BMI 35.9 10. Stage III chronic renal insufficiency due to hypertensive heart disease 11. History of multiple adenomatous colon 12. Sigmoid diverticulosis with pandiverticulosis 13. Depressive disorder 14. Generalized anxiety disorder 15. History of myocardial infarction 16. History of deep venous thrombosis 17. Hypokalemia Hospital course The patient is a 76-year-old male with personal history of over 45 polyps resected in 2 months and a large unresectable cecal adenoma. Patient is status post Robot-assisted daVinci Xi laparoscopic right hemicolectomy and Robot- assisted daVinci Xi laparoscopic enterectomy. He tolerated surgery well. His pain is controlled. He is tolerating diet. He is having bowel movements. He is afebrile. He is up and ambulating. He has worked with physical therapy and they have deemed him appropriate for discharge home. Patient seen by multiple consultants during this admission. He was seen by urology for urinary retention. Suero catheter was discontinued today. He will need to void before being discharged. Patient is stable for discharge. Physician Wood Grainer note has been reviewed by physician. Signing provider agrees with the documented findings, assessment, and plan of care. Patient Condition at Discharge: Stable Plan - Discharge Summary Discharge Rx Participant: No New Discharge Prescriptions: New Simethicone [Gas-X] 125 mg PO AC-TID PRN #20 capsule PRN Reason: Pain Acetaminophen Tab [Tylenol Tab] 1,000 mg PO Q6HR PRN #30 tablet PRN Reason: Pain amLODIPine [Norvasc] 10 mg PO DAILY tab Potassium Chloride [Potassium Chloride ER] 10 meq PO DAILY #30 tab Ipratropium-Albuterol Nebulize [Duoneb 0.5 mg-3 mg/3 ml Soln] 3 ml INHALATION RT-Q4H PRN each PRN Reason: Wheezing hydroCHLOROthiazide [Hydrodiuril] 25 mg PO DAILY tab Continue Furosemide [Lasix] 40 mg PO DAILY Atorvastatin [Lipitor] 20 mg PO QAM Tamsulosin HCl [Flomax] 0.4 mg PO HS Metoprolol Succinate [Toprol XL] 100 mg PO DAILY Venlafaxine HCl ER [Effexor XR] 150 mg PO DAILY methocarbamoL [Robaxin-750] 750 mg PO BID Candesartan [Atacand] 32 mg PO DAILY busPIRone HCL 10 mg PO DAILY ALPRAZolam [Xanax] 0.25 mg PO TID #6 tab Discharge Medication List Atorvastatin [Lipitor] 20 mg PO QAM 07/08/17 [History] Furosemide [Lasix] 40 mg PO DAILY 07/08/17 [History] Tamsulosin HCl [Flomax] 0.4 mg PO HS 07/08/17 [History] Metoprolol Succinate [Toprol XL] 100 mg PO DAILY 03/28/19 [History] Venlafaxine HCl ER [Effexor XR] 150 mg PO DAILY 03/28/19 [History] Candesartan [Atacand] 32 mg PO DAILY 11/15/20 [History] busPIRone HCL 10 mg PO DAILY 11/15/20 [History] methocarbamoL [Robaxin-750] 750 mg PO BID 11/15/20 [History] Acetaminophen Tab [Tylenol Tab] 1,000 mg PO Q6HR PRN #30 tablet 10/20/21 [Rx] Simethicone [Gas-X] 125 mg PO AC-TID PRN #20 capsule 10/20/21 [Rx] ALPRAZolam [Xanax] 0.25 mg PO TID #6 tab 10/23/21 [Rx] Ipratropium-Albuterol Nebulize [Duoneb 0.5 mg-3 mg/3 ml Soln] 3 ml INHALATION RT-Q4H PRN each 10/23/21 [Rx] Potassium Chloride [Potassium Chloride ER] 10 meq PO DAILY #30 tab 10/23/21 [Rx] amLODIPine [Norvasc] 10 mg PO DAILY tab 10/23/21 [Rx] hydroCHLOROthiazide [Hydrodiuril] 25 mg PO DAILY tab 10/23/21 [Rx] Follow up Appointment(s)/Referral(s): Filemon Stafford MD [STAFF PHYSICIAN] - 10/27/21 Renetta Vora MD [STAFF PHYSICIAN] - 10/28/21 [facility], [NON-STAFF] - 1 Week Tomi Agustin DO [Primary Care Provider] - 3 Weeks Luis Alberto Mcguire DO [STAFF PHYSICIAN] - 2 Weeks Ambulatory/Diagnostic Orders: Basic Metabolic Panel [LAB.AMB] Time Frame: 2 Days, Location: None Selected Patient Instructions/Handouts: *[facility] - (Anesthesia) Endoscopy Discharge Instructions, *[facility] - Managing Your Pain After Surgery Without Opioids, Low Fiber Diet (DC), Diverticulitis Diet (DC), Colectomy Diet (ED), Laparoscopic Bowel Resection (DC) Activity/Diet/Wound Care/Special Instructions: Wear abdominal binder at all times for comfort. No lifting over 4 pounds in 4 weeks until Nov 17. August shower. No bath tub soaks for two weeks until October 31 Avoid steak, tough meats and seeds such as raspberry seeds. No driving while on narcotics. Use Tylenol scheduled for the next 24-48 hours for best pain relief. Use ice along incisions for today to prevent swelling. Patient will be contacted by Dr. Stafford' office to schedule follow-up appointment on 10/27/2021. Discharge Disposition: TRANSFER TO SNF/ECF
[2021-10-24 13:25] VITALS: BP 130/78; PULSE 81; TEMP 97.6
--- NOTE | 2021-10-24 15:36 | P.PN ---
Progress Note - Text Progress Note Date: 10/24/21 The patient was comfortable when seen this morning. His Suero catheter was draining clear yellow urine. He is receiving tamsulosin. The Suero catheter will be removed for a voiding trial.
--- NOTE | 2021-10-24 16:20 | P.PN ---
Subjective Patient is seen for follow-up for acute kidney injury Renal function has improved. Patient is off of IV fluids and diuretics. He is maintained on Cozaar and is tolerating it well. Creatinine is down to 1.1 from 1.8 at peak. No significant complaints today. Patient was started on diuretics disease as low as his volume status has improved much. Serum creatinine stable at 1.3 mg/dL Objective - Vital Signs Vital signs: Vital Signs Temp 97.6 F 10/24/21 13:23 Pulse 81 10/24/21 13:23 Resp 18 10/24/21 07:15 BP 130/78 10/24/21 13:23 Pulse Ox 98 10/24/21 08:45 FiO2 21 10/22/21 19:48 Intake & Output 10/23/21 10/24/21 10/24/21 18:59 06:59 18:59 Output Total 5675 800 Balance -5675 -800 Weight 113.6 kg Output: Urine 5675 800 Uretheral (Suero) 2100 800 Other: Voiding Method Indwelling Catheter Indwelling Catheter # Voids 0 - Exam Comfortable awake, not in any acute distress Alert oriented 3 Lungs and heart not examined today Abdomen is soft nontender Examination of the lower extremities shows chronic skin changes, edema 1+ bilaterally, improved LOAN COUNSELOR exam grossly intact - Labs CBC & Chem 7: 10/24/21 08:43 10/24/21 08:43 Labs: Abnormal Lab Results - Last 24 Hours (Table) 10/24/21 Range/Units 08:43 Carbon Dioxide 31 H (22-30) mmol/L Creatinine 1.33 H (0.66-1.25) mg/dL Glucose 149 H (74-99) mg/dL Assessment and Plan Assessment: 1. Acute kidney injury, prerenal and secondary to urine retention. Currently improved 2. Chronic kidney disease stage IIIB with baseline creatinine around 1.5 with grams per deciliter. Etiology secondary to nephrosclerosis and polycystic kidney disease 3. Colon cancer status post right hemicolectomy on 10/17/2021 4. Urine retention currently with indwelling Suero catheter 5. Hypertension, uncontrolled partly volume sensitive. Currently off of IV fluids. 6. Volume overload currently improved Plan: Continue with Lasix Can hold hydrochlorothiazide which was started this admission as blood pressure is much improved
--- NOTE | 2021-10-24 20:17 | P.PN ---
Subjective Progress Note Date: 10/24/21 This is a 76 year male who presents to the hospital for scheduled surgical intervention regarding tubular adenoma, large neoplasm of the cecum. Patient is postoperative day #1 robotic-assisted da Bertha laparoscopic right hemicolectomy with enterectomy with Dr. Massey. Patient follows with Dr. Mare Agustin in the primary care setting, we are asked to see patient in medical consultation for management of his chronic conditions which include; coronary artery disease status post cardiac stenting, Deep Vein thrombosis, hypertension, hyperlipidemia, fibromyalgia, myocardial infarction, history of prostate cancer with a recent diagnosis of colon cancer. Patient is a former smoker for 30 years quit in 1997 does use marijuana daily. Home medications include buspirone, Effexor, Toprol-XL, Lasix, candesartan, atorvastatin, Xanax, Robaxin. Preoperative labs include a white count of 9.14, hemoglobin 11.2, sodium 141, potassium 3.5, BUN 10.8, creatinine 1.3 was 1.50 on admission, blood glucose 92. Liver enzymes are within normal limits. Vital Signs today showing temp 97.5, heart rate 71, blood pressure 146/79, 99% 2 L nasal cannula. Appropriate home medications will be resumed. Inpatient he is receiving IV Flagyl, IV cefazolin postoperatively. Continues on fluids D5 half-normal saline with 20 Meq potassium. Postoperative pain management as per primary. Indwelling haley cather in place. Creatinine today has increased up to 1.8, losartan will be placed on hold. 10/19/2021 Patient is postoperative day #2 laparoscopic right hemicolectomy with enterectomy. Currently maintained on a clear liquid diet. He is wearing abdominal binder. Nephrology has been consulted regarding elevated creatinine. Sodium of 132, potassium 3.7, BUN 18, creatinine is 1.68, magnesium 1.8. Iron studies are completed showing an iron level 23, TIBC 283, percent saturation 7.72, transferrin 209, ferritin 49.9. He continues on IV metronidazole. He continues on D5 half-normal saline with 20 Meqs of potassium which has been adjusted to normal saline for gentle hydration. patient is tolerated diet which will be advanced to full liquid today. Repeat labs tomorrow. Lasix and losartan are currently on hold. He is afebrile, heart rate 71, blood pressure 110/63, 93% room air. Patient has some scattered wheezing throughout will order as needed duonebs as well. 10/20/2021 patient is without asymmetry is postoperative day #3 right hemicolectomy and enterectomy. He was advanced to full liquid diet and tolerating well. No nausea or vomiting. He denies bowel movement but is passing gas and his bowel sounds are more active today. He is using abdominal binder. His main complaint is pain in the right upper quadrant rating as 6 out of 10 but is stating that the pain medication is helping when he receives it. today his wheezing has improved he is using incentive spirometer, is also on DuoNeb's. IV fluids have been discontinued. white count today is 10.52, hemoglobin 10.8, sodium has improved now 140. Magnesium is now 2.2 after supplementation. Also his creatinine has improved and is now 1.4, has been resumed on losartan as blood pressure is elevated today at 145/88. 10/21/2021 Patient evaluated today he is postoperative day #4. He is being continued on entereg and needs to have large BM before discharge. No acute events overnight. His wheeze has improved, he is doing well on IS and has duonebs as needed. Losartan has been resumed, his creatinine today is 1.3. We will discontinue IV fluids. White count today 10.44, hgb 11.1. He is afebrile, heart rate 63, blood pressure 150/90s, he is 98% room air. 10/22/2021 Patient today is sitting up in the chair. He is post operative day #5 right hemicolectomy and enterectomy. Reports moderate size loose BM throughout the evening. Positive bowel sounds. He is tolerating diet. No fever, no chills. No chest pain, shortness of breath. He has minimal expiratory wheeze and he continues to use incentive spirometer and has duonebs as needed. Fluids were discontinued yesterday, they were still infusing at 50 mls per hour throughout the night. Blood pressure today is elevated 180/100s and he was started on norvasc. He continues on losartan. Creatinine today 1.13. Plan to resume lasix tomorrow. Urology has evaluated patient in consultation and is recommending discharge with [facility] and follow up in the office on the . Labs reviewed today showing white count 10.0, hgb 11.8, sodium 137, potassium 3.6, creatinine 1.13, glucose 133, calcium 8.6. 10/23/2021 Patient is evaluated today sitting up in the chair. Lungs are clear today. Nephrology is following patient and has started hydrochlorothiazide and he will also be resumed on oral lasix. He did receive a one time dose of IV lasix yesterday. He had a good size BM overnight and states his abdominal pain is improving slowly. Tolerating diet. He is afebrile, blood pressure now 119/79. He is using Incentive spirometer. He will discharge with [facility] and see urology outpatient. Creatinine today 1.3, sodium 141, white count 10.19, hgb 12.3. He did receive oral potassium supplementation today. 10/24/2021 Patient is currently resting in bed. Awake alert and oriented x3. No complaints of chest pain or shortness of breath. Abdominal distention is much improved. Patient is tolerating oral diet. Blood pressure is also better controlled. Continue with Lasix and hydrochlo rothiazide has been discontinued. Nephrology is on board. No complaints of nausea vomiting or abdominal pain or diarrhea. No fever no chills. No other acute overnight issues. Laboratory data showed WBC 10.0 hemoglobin 13.6 platelets 324 Sodium 137 potassium 3.5 chloride 101 bicarb is 21 BUN 12 and creatinine 1.33. Patient is being discharged home today. Follow-up with primary care physician next 3 to 5 days. Review of Systems Constitutional: Denied any fatigue denied any fever. Cardio vascular: denied any chest pain, palpitations Gastrointestinal: denied any nausea, vomiting, diarrhea, passing gas. Pulmonary: Denied any shortness of breath cough Neurologic denied any new focal deficits All inpatient medications were reviewed and appropriate changes in these medications as dictated in the interval history and assessment and plan. PHYSICAL EXAMINATION: GENERAL: The patient is alert and oriented x3, not in any acute distress. Well developed, well nourished. HEENT: Pupils are round and equally reacting to light. EOMI. No scleral icterus. No conjunctival pallor. Normocephalic, atraumatic. No pharyngeal erythema. No thyromegaly. CARDIOVASCULAR: S1 and S2 present. No murmurs, rubs, or gallops. PULMONARY: Lungs are clear ABDOMEN: Soft, tender, nondistended, normoactive bowel sounds. No palpable organomegaly. Postsurgical abdomen with abdominal binder in place. MUSCULOSKELETAL: No joint swelling or deformity. EXTREMITIES: No cyanosis, clubbing, or pedal edema. NEUROLOGICAL: Gross neurological examination did not reveal any focal deficits. SKIN: No rashes. Assessment and plan Assessment Colon cancer patient is Postoperative day 7 Right hemicolectomy with enterectomy Leukocytosis on admission, resolved Acute renal injury secondary to poor oral intake and medications, improved Chronic kidney disease Hyponatremia, resolved Hypertension Iron deficiency anemia Ischemic cardiomyopathy History of coronary artery disease status post stenting History DVT Hyperlipidemia History of prostate cancer Abdominal aortic aneurysm Former smoker Daily THC use Obesity GI Prophylaxis DVT Prophylaxis Subcu heparin Full Code Plan Continue on current blood pressure medications, diuretics Replace potassium, magnesium as needed Encourage ambulation, incentive spirometry Diet per primary Pain management per primary Patient is medically cleared for discharge. Objective - Vital Signs Vital signs: Vital Signs Temp 97.6 F 10/24/21 13:23 Pulse 81 10/24/21 13:23 Resp 18 10/24/21 07:15 BP 130/78 10/24/21 13:23 Pulse Ox 98 10/24/21 08:45 FiO2 21 10/22/21 19:48 Intake & Output 10/23/21 10/24/21 10/24/21 18:59 06:59 18:59 Output Total 5675 800 Balance -5675 -800 Weight 113.6 kg Output: Urine 5675 800 Uretheral (Haley) 2100 800 Other: Voiding Method Indwelling Catheter Indwelling Catheter # Voids 0 - Labs CBC & Chem 7: 10/24/21 08:43 10/24/21 08:43 Labs: Abnormal Lab Results - Last 24 Hours (Table) 10/24/21 Range/Units 08:43 Carbon Dioxide 31 H (22-30) mmol/L Creatinine 1.33 H (0.66-1.25) mg/dL Glucose 149 H (74-99) mg/dL
== END 2021-10-24 17:20 | disposition home health service (06) | DRG 330 ==
LOC: ORWHC2ENDO 10:11 → 5NMEDONC 11:47 → ORWHC2ENDO 10-17 13:22
PROVIDERS: ADMIT Surgery Plastic and Reconstructive Surgery; ATTEND Surgery Plastic and Reconstructive Surgery
PROC: 0DBL8ZX Excision of Transverse Colon, Via Natural or Artificial Opening Endoscopic, Diagnostic (ICD-10-PCS; 2021-10-16)
PROC: 0DBN8ZX Excision of Sigmoid Colon, Via Natural or Artificial Opening Endoscopic, Diagnostic (ICD-10-PCS; 2021-10-16)
PROC: 3E0H8KZ Introduction of Other Diagnostic Substance into Lower GI, Via Natural or Artificial Opening Endoscopic (ICD-10-PCS; 2021-10-16)
PROC: 0DBM8ZX Excision of Descending Colon, Via Natural or Artificial Opening Endoscopic, Diagnostic (ICD-10-PCS; principal; 2021-10-16 11:05)
PROC: 0DB84ZZ Excision of Small Intestine, Percutaneous Endoscopic Approach (ICD-10-PCS; 2021-10-17)
PROC: 0DTH4ZZ Resection of Cecum, Percutaneous Endoscopic Approach (ICD-10-PCS; 2021-10-17)
PROC: 8E0W4CZ Robotic Assisted Procedure of Trunk Region, Percutaneous Endoscopic Approach (ICD-10-PCS; 2021-10-17)
DX: C18.0 Malignant neoplasm of cecum (principal); E87.1 Hypo-osmolality and hyponatremia; I13.0 Hypertensive heart and chronic kidney disease with heart failure and stage 1 through stage 4 chronic kidney disease, or unspecified chronic kidney disease; N17.9 Acute kidney failure, unspecified; Q61.3 Polycystic kidney, unspecified; N13.8 Other obstructive and reflux uropathy; I50.9 Heart failure, unspecified; K76.89 Other specified diseases of liver; I71.4 Abdominal aortic aneurysm, without rupture; F32.A Depression, unspecified; N18.32 Chronic kidney disease, stage 3b; D50.9 Iron deficiency anemia, unspecified; E66.01 Morbid (severe) obesity due to excess calories; N40.1 Benign prostatic hyperplasia with lower urinary tract symptoms; R33.8 Other retention of urine; I25.5 Ischemic cardiomyopathy; F41.1 Generalized anxiety disorder; E87.6 Hypokalemia; M79.7 Fibromyalgia; D12.4 Benign neoplasm of descending colon; D12.3 Benign neoplasm of transverse colon; K57.30 Diverticulosis of large intestine without perforation or abscess without bleeding; D12.0 Benign neoplasm of cecum; K64.4 Residual hemorrhoidal skin tags; I25.10 Atherosclerotic heart disease of native coronary artery without angina pectoris; E78.5 Hyperlipidemia, unspecified; D72.829 Elevated white blood cell count, unspecified; K64.8 Other hemorrhoids; Z87.19 Personal history of other diseases of the digestive system; Z86.010 Personal history of colon polyps; Z98.890 Other specified postprocedural states; Z85.46 Personal history of malignant neoplasm of prostate; Z92.3 Personal history of irradiation; Z87.448 Personal history of other diseases of urinary system; I25.2 Old myocardial infarction; Z87.891 Personal history of nicotine dependence; Z86.718 Personal history of other venous thrombosis and embolism; Z95.5 Presence of coronary angioplasty implant and graft; Z80.9 Family history of malignant neoplasm, unspecified; Z79.899 Other long term (current) drug therapy; Z86.79 Personal history of other diseases of the circulatory system; Z68.35 Body mass index [BMI] 35.0-35.9, adult
CPT/HCPCS: 45381; 45385; 64488; 80048; 80053; 82728; 83540; 83550; 83735; 85025; 85610; 86850; 86900; 86901; 88305; 88307; 88309; 94640; 94760

== ENCOUNTER → 2023-10-11 | Outpatient (CLI) | payer MEDICARE, OTHER ==
--- NOTE | 2023-10-12 12:27 | US ---
EXAMINATION TYPE: US kidneys/renal and bladder DATE OF EXAM: 10/11/2023 COMPARISON: CT CLINICAL INDICATION: Male, 78 years old with history of D41.01NEOPLASM OF UNCERTAIN BEHAVIOR OF RIGHT KIDN; Abnormal CT EXAM MEASUREMENTS: Right Kidney: 15.0 x 6.6 x 6.6 cm Left Kidney: 14.0 x 6.0 x 5.4 cm Right Kidney: Hypoechoic lesion upper pole= 2.0 x 2.1 x 2.1 cm, Solid, vascular mass lower pole= 5.8 x 5.2 x 5.7 cm Left Kidney: Multiple cysts, largest simple cyst lower pole= 6.8 x 6.4 x 6.5 cm, complex lesion lower pole= 3.8 x 3.5 x 3.9 cm Bladder: wnl Bilateral Jets seen: No No evidence for hydronephrosis. IMPRESSION: 1. Solid right inferior renal mass measuring up to 5.8 cm. Further evaluation with MRI renal mass pr otocol recommended. Mass may have been present dating back to at least 2019. Consider tissue sampling for definitive diagnosis. 2. Additional bilateral renal cysts. Questionable complex mass in the left kidney inferior pole can be further evaluated with MRI renal mass protocol.
== END | disposition home or self-care (01) ==
LOC: RADUSWWP 16:37
PROVIDERS: ATTEND Urology
DX: D41.01 Neoplasm of uncertain behavior of right kidney (principal); N28.89 Other specified disorders of kidney and ureter; N28.1 Cyst of kidney, acquired
CPT/HCPCS: 76770

== ENCOUNTER → 2023-10-13 | Outpatient (CLI) | payer MEDICARE, OTHER ==
[2023-10-14 03:01] LABS: BUN/Creat Ratio 8.89 Ratio (12.00-20.00); Calcium 9.1 mg/dL (8.7-10.3); Carbon Dioxide 31.4 mmol/L (21.6-31.8); Chloride 102 mmol/L (96-109); Glucose 90 mg/dL (70-110); Potassium 4.2 mmol/L (3.5-5.5); Sodium 144 mmol/L (135-145)
== END | disposition home or self-care (01) ==
LOC: LABWHC1 15:30
PROVIDERS: ATTEND Urology
DX: D41.01 Neoplasm of uncertain behavior of right kidney (principal); N18.9 Chronic kidney disease, unspecified
CPT/HCPCS: 36415; 80048

== ENCOUNTER → 2023-11-11 | Outpatient (CLI) | payer MEDICARE, OTHER ==
--- NOTE | 2023-11-11 16:29 | MR ---
EXAMINATION TYPE: MR abdomen wo con DATE OF EXAM: 11/11/2023 12:44 PM INDICATION: Patient age:Male; 78 years old; Reason for study: D41.01 NEOPLASM OF UNCERTAIN BEHAVIOR OF RIGHT KID; [facility]. COMPARISON: Renal ultrasound 10/11/2023, CT abdomen and pelvis 08/27/2021, CTA abdominal aorta with runo ff 11/15/2020, CTA abdomen and pelvis 05/22/2019, 03/24/2019 TECHNIQUE: Multiplanar multisequence imaging was performed without IV contrast of the abdomen. Lack o f intravenous contrast limits evaluation. FINDINGS: LOWER CHEST: Cardiomegaly. ABDOMEN Liver: T2 hyperintense left hepatic lobe 6.6 cm thin-walled cyst renal shadow. Additional smaller T2 hyperintense cysts throughout the liver. Gallbladder and Bile ducts: Unremarkable. Pancreas: Unremarkable. Spleen: There are at least 5 T2 hyperintense/T1 hypointense lesions identified within the spleen with largest measuring up to 3.4 cm. Some of these lesions are new from prior CT including the largest on e. The other lesions appear slightly increased in size from prior CT. Adrenal glands: Unremarkable. Kidneys: No hydronephrosis. There are 4 distinct T2 hyperintense thin-walled cystic lesions within th e left kidney with the largest measuring up to 6.5 cm. Additional T2 hyperintense/T1 hypointense thin -walled cystic lesion identified within the superior pole the right kidney measuring up to 2.7 cm. Th e medial inferior cystic lesion demonstrates thin wall with thin septation. Overall these are stable in size and prior CT dating back to least 2019 and demonstrated simple fluid attenuation prior CT. An additional subcentimeter T1 hyperintense cortical foci in the right kidney likely representing prote inaceous/hemorrhagic cysts. T2/T1 heterogenous inferior right lower pole 6.0 cm lesion. This appears to demonstrate. Evaluation is significantly limited due to lack of intravenous contrast. Lesion appea rs to been present on prior CT dating back to 2018 when it measured up to 4.5 cm. Stomach and Bowel: Descending colon diverticulosis.. Peritoneum: No evidence of pneumoperitoneum, free fluid, or adenopathy. Vasculature: Redemonstration of an infrarenal fusiform abdominal aortic aneurysm status post stent gr aft. The excluded aneurysm sac measures 7.3 x 9.1 cm. There is heterogenous regions of signal identif ied within the aneurysm sac including regions of restricted diffusion consistent with blood products. There again is T2 hyperintense material identified throughout the visualized right iliac stent graft again suggestive of occlusion which as previously suggested on 2020 exam. Abdominal wall: Unremarkable. Musculoskeletal: The osseous structures appear intact. Degenerative changes of the visualized spine. IMPRESSION: 1. Right renal inferior pole heterogenous solid 6.0 cm lesion. This has been present on prior CTs da ting back to 2019 and has increased in size from 4.5 cm in 2019. Lack of intravenous contrast limits characterization. Etiologies include renal cell carcinoma versus oncocytoma versus other. 2. Stable thin walled bilateral T2 hyperintense renal lesions dating back to 2019 and favored to rep resent benign cysts. 3. Multiple hepatic cysts redemonstrated. 4. New and enlarging splenic T2 hyperintense lesions likely representing splenic cysts or hemangioma s. Evaluation is limited due to lack of intravenous contrast. 5. Redemonstration of infrarenal abdominal aortic aneurysm status post aortobiiliac stent graft. The re is again suggested occlusion of the right iliac stent graft as seen on prior CT.
== END | disposition home or self-care (01) ==
LOC: RADMRIMAIN 11:38
PROVIDERS: ATTEND Urology
DX: D41.01 Neoplasm of uncertain behavior of right kidney (principal); I71.43 Infrarenal abdominal aortic aneurysm, without rupture; K76.89 Other specified diseases of liver; R16.1 Splenomegaly, not elsewhere classified; N28.9 Disorder of kidney and ureter, unspecified
CPT/HCPCS: 74181

== ENCOUNTER 2024-02-10 10:52 | Inpatient (IN) | payer MEDICARE, OTHER ==
[2024-02-10 12:41] LABS: Glucose,Whole Blood 122 mg/dL (70-110)
[2024-02-10] MEDS: MIDAZOLAM 2 MG/2 ML VIAL IVP ONE (13:33)
[2024-02-10] MEDS: fentaNYL (PF) 50 MCG/ML 2 ML AMP IVP ONE (13:33)
[2024-02-10] MEDS: SODIUM CHLORIDE 0.9% 1,000 ML IV ONE (13:38)
[2024-02-10] MEDS: ASPIRIN 81 MG PO ONE (13:39)
[2024-02-10] MEDS: LIDOCAINE 1% INJ 10MG/ML (20 ML MDV) SQ ONE (13:42)
[2024-02-10] MEDS: VERAPAMIL SYRINGE (5 MG/10 ML) INTRAARTER ONE (13:43)
[2024-02-10] MEDS: HEPARIN SODIUM 1,000 UN/ML (10ML VL) IV ONE ×2 (13:45→14:05)
[2024-02-10] MEDS: NITROGLYCERIN 1000MCG/10ML SYRINGE INTRACORON ONE (14:11)
[2024-02-10] MEDS: IOPAMIDOL-370 100ML BTL INJ ONE (14:37)
[2024-02-10] MEDS: HEPARIN SODIUM,PORCINE (1 ML) 2,500 UNIT in SODIUM CHLORIDE 0.9% 250 ML IRRIGATION ONE (14:37)
[2024-02-10] MEDS: HEPARIN SODIUM,PORCINE 10,000 UNIT in SODIUM CHLORIDE 0.9% 1,000 ML IRRIGATION ONE (14:37)
[2024-02-10] MEDS ORDERED: ACETAMINOPHEN TAB 500 MG TAB PO PRN (14:41)
[2024-02-10] MEDS ORDERED: MAG HYDROX/AL HYDROX/SIMETH 30 ML CUP PO PRN (14:43)
[2024-02-10] MEDS ORDERED: ZOLPIDEM 5 MG TAB PO PRN (14:43)
[2024-02-10] MEDS ORDERED: ATROPINE SULFATE 0.1 MG/ML 10ML SYRINGE IV PRN (14:43)
[2024-02-10] MEDS ORDERED: RX INFO: IV CONTRAST WAS GIVEN 1 EACH MISC MISCELLANE PRN ×2 (14:43→14:48)
[2024-02-10] MEDS ORDERED: NITROGLYCERIN SL TABS 0.4 MG TAB SUBLINGUAL PRN (14:43)
--- NOTE | 2024-02-10 15:00 | P.PRCINT ---
Percutaneous Coronary Int. - Percutaneous Coronary Intervention Percutaneous Coronary Intervention: PROCEDURES PERFORMED: Right coronary angiography, ultrasound guided arterial access, PCI RCA with overlapping 3.0 x 48mm Xience proximally and 2.25 x 38mm Xience DAVID distally, post dilated with a 3.5mm NC balloon, IVUS RCA INDICATION: NSTEMI CONSENT:I have discussed the risks, benefits and alternative therapies for the above-mentioned procedure and for both sedation/analgesia as well as necessary blood product administration, if indicated, as they pertain to this patient. The patient has indicated understanding and acceptance of the risks and procedures discussed. PROCEDURE: After the risks, benefits and alternatives of the above mentioned procedure explained in detail with the patient, informed consent was obtained. Patient was taken to the catheterization lab and prepped and draped in usual fashion. Ultrasound guidance was used to assess for arterial access. 1% lidocaine was used to anesthetize the right radial artery. A 6-Bulgarian sheath was placed in the right radial artery using modified Seldinger technique and ultrasound guidance. L the decision was made to perform PCI of the RCA. A 6-Bulgarian AL-1 catheter was initially used however unable to properly engage and therefore a 6-Bulgarian AL 0 .75 guide catheter was used engage the RCA. There was a significant amount of tortuosity of the subclavian. There is also a small brachial loop. A 0.014 BMW wire and then her 0.014 whisper wire were advanced into the distal RCA. The PLV was noted to be 100% occluded proximally and decision made to stent over this area. Intravascular ultrasound was performed which showed diffuse disease from the entire proximal to distal RCA. Predilation was performed with a 2.0 x 12 mm balloon. Next a 2.25 x 38mm Xience DAVID was placed in the mid to distal RCA. An additional 3.0 x 48 mm Xience DAVID was placed from the proximal RCA to the mid RCA overlapping with the first stents. The distal stent was postdilated with a 2.5 mm noncompliant balloon. Next a 3.5 mm noncompliant balloon was used the post dilate the proximal and mid stents. Final angiograms were performed. Limited angiograms were performed secondary to contrast threshold. Pre- intervention there was 99% mid RCA stenosis with ELLA 2 flow and postintervention there was less than 10% stenosis with ELLA 3 flow. The right radial sheath was removed and a TR band was placed with hemostasis achieved. The patient tolerated the procedure well. Patient was transported back to the post catheterization holding area in stable condition. Conscious Sedation: Patient was monitored under the direct supervision of myself for conscious sedation using Versed and fentanyl for a total duration of 55 minutes HEMODYNAMICS: Ao: 144/76 SELECTIVE CORONARY ARTERIOGRAPHY: LEFT MAIN: Not imaged see separate report. LEFT ANTERIOR DESCENDING CORONARY ARTERY: Not imaged see separate report. LEFT CIRCUMFLEX CORONARY ARTERY: Not imaged see separate report. RIGHT CORONARY ARTERY: The right coronary artery is a large caliber vessel which gives off a PDA and PLV branch and is the dominant vessel. There is a 99% mid to distal RCA stenosis. There is 100% stenosis of the PLV. FINAL IMPRESSION: 1. CAD as described above with 99% mid to distal RCA stenosis 2. S/p PCI RCA with overlapping 3.0 x 48mm Xience proximally and 2.25 x 38mm Xience DAVID distally, post dilated with a 3.5mm NC balloon PLAN: 1. Aggressive risk factor modification per most recent ACC/AHA guidelines. 2. Continue dual antiplatelets with aspirin and Plavix for 12 months
[2024-02-10 18:06] VITALS: RESP 16
[2024-02-10] MEDS: SODIUM CHLORIDE 0.9% 1,000 ML in EMPTY BAG 1 BAG IV SCH (19:00)
[2024-02-10] MEDS: LATANOPROST 0.005% OPHTH DROPS 2.5 ML BTL BOTH EYES SCH (19:50)
[2024-02-10] MEDS: ATORVASTATIN 40 MG TAB PO SCH (19:50)
[2024-02-10] MEDS ORDERED: methocarbamoL 750 MG TAB PO SCH (21:00)
[2024-02-11] MEDS: PANTOPRAZOLE 40 MG TABLET PO SCH (06:13)
[2024-02-11] MEDS ORDERED: VENLAFAXINE HCL ER 150 MG CAP PO SCH (09:00)
[2024-02-11] MEDS: ASPIRIN 81 MG PO SCH (09:33)
[2024-02-11] MEDS: LOSARTAN 25 MG TAB PO SCH (09:33)
[2024-02-11] MEDS: CLOPIDOGREL 75 MG TAB PO SCH (09:33)
[2024-02-11] MEDS: FUROSEMIDE 40 MG TAB PO SCH (09:34)
[2024-02-11] MEDS: SERTRALINE 50 MG TAB PO SCH (09:34)
[2024-02-11] MEDS: METOPROLOL SUCCINATE (ER) 100 MG TAB.ER.24H PO SCH (09:34)
[2024-02-11 09:38] VITALS: BP 153/77; PULSE 74; TEMP 98.1
[2024-02-11 09:58] LABS: Basophils % (A) 0 %; Eosinophils # (A) 0.3 k/uL (0-0.7); Eosinophils % (A) 2 %; HCT 26.8 % (39.0-53.0); HGB 8.7 gm/dL (13.0-17.5); Hypochromasia Slight; Lymphocytes # (A) 0.9 k/uL (1.0-4.8); Lymphocytes % (A) 7 %; MCH 28.7 pg (25.0-35.0); MCHC 32.4 g/dL (31.0-37.0); MCV 88.6 fL (80.0-100.0); Mean Platelet Volume 8.2; Monocytes % (A) 8 %; Neutrophils # (A) 9.9 k/uL (1.3-7.7); Neutrophils % (A) 81 %; Platelet Count 327 k/uL (150-450); RBC 3.03 m/uL (4.30-5.90); WBC 12.2 k/uL (3.8-10.6)
[2024-02-11 10:39] VITALS: BMI 34.8
[2024-02-11 10:46] LABS: African American GFR (CKD) 41 (>60 ml/min/1.73 sqM); Anion Gap 3 mmol/L; Blood Urea Nitrogen 22 mg/dL (9-20); Calcium 8.4 mg/dL (8.4-10.2); Carbon Dioxide 25 mmol/L (22-30); Chloride 109 mmol/L (98-107); Glucose 135 mg/dL (74-99); Non-African American GFR(CKD) 35 (>60 ml/min/1.73 sqM); Sodium 137 mmol/L (137-145)
--- NOTE | 2024-02-11 13:13 | P.PN ---
Subjective HISTORY OF PRESENT ILLNESS: This is a 78-year-old male who was transferred from [facility]. Patient is status post cardiac catheterization with Dr. Merchant. Patient underwent stenting of the RCA. Patient examined this morning the bedside. Patient denies chest pain or pressure. He denies shortness of breath. Vital signs are stable. PHYSICAL EXAM: VITAL SIGNS: Reviewed. GENERAL: Well-developed in no acute distress. NECK: Supple. No JVD or thyromegaly LUNGS: Respirations even and unlabored. Lungs essentially clear to auscultation bilaterally. HEART: Regular rate and rhythm. S1 and S2 heard. EXTREMITIES: Normal range of motion. No clubbing or cyanosis. Peripheral pulses intact. No lower extremity edema ASSESSMENT: Non-STEMI, status post cardiac catheterization with stenting to the RCA PLAN: Continue dual antiplatelet therapy with aspirin and Plavix for 12 months Continue high intensity statin. LDL goal less than 70. Continue additional cardiac medications Patient is stable for discharge home today from a cardiac standpoint. However this morning the patient stated he could not be discharged today because he did not have anybody at home to help him. No further inpatient recommendations from a cardiac standpoint. We will sign off. Please reconsult if needed. Nurse practitioner note has been reviewed by physician. Signing provider agrees with the documented findings, assessment, and plan of care documented by [employer] as a scribe. Objective - Vital Signs Vital signs: Vital Signs Temp 98.1 F 02/11/24 08:00 Pulse 74 02/11/24 08:00 Resp 16 02/11/24 08:00 BP 153/77 02/11/24 08:00 Pulse Ox 98 02/11/24 08:00 FiO2 Intake & Output 02/10/24 02/11/24 02/11/24 18:59 06:59 18:59 Intake Total 700 0 Output Total 500 Balance 700 -500 Weight 110 kg 110.2 kg 110.2 kg Intake: IV 200 Oral 500 0 Output: Urine 500 Other: Voiding Method Toilet # Voids 1 1 - Labs CBC & Chem 7: 02/11/24 09:11 02/11/24 09:11 Labs: Abnormal Lab Results - Last 24 Hours (Table) 02/11/24 02/11/24 Range/Units 09:11 09:11 WBC 12.2 H (3.8-10.6) k/uL RBC 3.03 L (4.30-5.90) m/uL Hgb 8.7 L (13.0-17.5) gm/dL Hct 26.8 L (39.0-53.0) % RDW 16.0 H (11.5-15.5) % Neutrophils # 9.9 H (1.3-7.7) k/uL Lymphocytes # 0.9 L (1.0-4.8) k/uL Chloride 109 H (98-107) mmol/L BUN 22 H (9-20) mg/dL Creatinine 1.80 H (0.66-1.25) mg/dL Glucose 135 H (74-99) mg/dL
--- NOTE | 2024-02-12 06:42 | P.HPIM ---
History of Present Illness H&P Date: 02/11/24 This is a very pleasant 78-year-old male who was sent over here from [facility] for cardiology evaluation and intervention. Patient is status post PCI stenting to the RCA. Patient underwent surgical intervention yesterday evening for NSTEMI. Patient follows with Dr. Agustin in the outpatient setting with a past medical history of coronary artery disease, DVT, hyperlipidemia, hy pertension, previous myocardial infarction's, history of prostate cancer, newly diagnosed colon cancer, former smoker, occasionally uses marijuana and occasional alcohol. On exam patient denies any chest pain or shortness of breath and expresses to go home. Patient will be continued on aspirin and Plavix per cardiology and close outpatient follow-up REVIEW OF SYSTEMS: CONSTITUTIONAL: No fever, no malaise, no fatigue. HEENT: No recent visual problems or hearing problems. Denied any sore throat. CARDIOVASCULAR: No further chest pain, orthopnea, PND, no palpitations, no syncope. PULMONARY: No shortness of breath, no cough, no hemoptysis. GASTROINTESTINAL: No diarrhea, no nausea, no vomiting, no abdominal pain. NEUROLOGICAL: No headaches, no weakness, no numbness. HEMATOLOGICAL: Denies any bleeding or petechiae. GENITOURINARY: Denies any burning micturition, frequency, or urgency. MUSCULOSKELETAL/RHEUMATOLOGICAL: Denies any joint pain, swelling, or any muscle pain. ENDOCRINE: Denies any polyuria or polydipsia. The rest of the 14-point review of systems is negative. PHYSICAL EXAMINATION: GENERAL: The patient is alert and oriented x3, not in any acute distress. Well developed, elderly appearing, obese HEENT: Pupils are round and equally reacting to light. EOMI. No scleral icterus. No conjunctival pallor. Normocephalic, atraumatic. No pharyngeal erythema. No thyromegaly. CARDIOVASCULAR: S1 and S2 muffled PULMONARY: Diminished breath sounds bilaterally otherwise chest is clear to auscultation, no wheezing or crackles. ABDOMEN: Soft, obese nontender, nondistended, normoactive bowel sounds. No palpable organomegaly. MUSCULOSKELETAL: No joint swelling or deformity. EXTREMITIES: No cyanosis, clubbing, or pedal edema. NEUROLOGICAL: Gross neurological examination did not reveal any focal deficits. SKIN: No rashes. Assessment: NSTEMI, status post cardiac catheterization with PCI stenting to the RCA History of coronary artery disease History of prostate cancer History of newly diagnosed colon cancer History of DVT Hyperlipidemia Hypertension Former smoker THC use Obesity with a body mass index of 34.9 GI prophylaxis DVT prophylaxis Full code Plan: Patient was sent over here from [facility] for further cardiac evaluation and cardiac catheterization. Patient is status post PCI stenting to the RCA and will continue on aspirin and Plavix for at least 12 months with close outpatient follow-up with Dr. Merchant. Patient has been cleared for discharge by cardiology Home medications reviewed and resumed as appropriate Patient instructed to follow-up with primary care provider on discharge Patient reports to having help in the home although reports generalized weakness. Requesting physical therapy evaluation although patient is adamant about going home Patient is high risk for readmissions given significant comorbidities and generalized weakness. The impression and plan of care has been dictated by Nurse Elena Prac titioner as directed. Dr. Ara MD I have performed a history and examination and MDM of this patient, discussed the same with the dictator, and agree with the dictator's assessment and plan as written ,documented as a scribe. Based on total visit time, I have performed more than 50% of the visit. Past Medical History Past Medical History: Coronary Artery Disease (CAD), Cancer, Deep Vein Thrombosis (DVT), Hyperlipidemia, Hypertension, Myocardial Infarction (MS), Prostate Disorder Additional Past Medical History / Comment(s): HX PROSTATE CA. NEW DX COLON CANCER Last Myocardial Infarction Date:: 1997 History of Any Multi-Drug Resistant Organisms: None Reported Past Surgical History: Heart Catheterization With Stent, Orthopedic Surgery Additional Past Surgical History / Comment(s): ALEJANDRINA KNEE SCOPES, colonoscopy, PROSTATE SURGERY Past Anesthesia/Blood Transfusion Reactions: No Reported Reaction Date of Last Stent Placement:: 02/10/2024 Past Psychological History: No Psychological Hx Reported Smoking Status: Former smoker Past Alcohol Use History: Occasional Additional Past Alcohol Use History / Comment(s): SMOKED 30 YEARS, 1 PPD, QUIT 1997 Past Drug Use History: Marijuana Additional Drug Use History / Comment(s): MARIJUANA USE DAILY-INSTRUCTED TO REFRAIN FROM USE FOR AT LEAST 24 HOURS PRIOR TO PROCEDURE - Past Family History Father Family Medical History: Cancer Medications and Allergies Home Medications Medication Instructions Recorded Confirmed Type Furosemide [Lasix] 40 mg PO DAILY 07/08/17 02/10/24 History Metoprolol Succinate [Toprol XL] 100 mg PO DAILY 03/28/19 02/10/24 History busPIRone HCL 10 mg PO TID 11/15/20 02/10/24 History ALPRAZolam [Xanax] 0.25 mg PO DAILY PRN 02/10/24 02/10/24 History Aspirin [Adult Low Dose Aspirin EC] 81 mg PO DAILY 02/10/24 02/10/24 History Atorvastatin [Lipitor] 40 mg PO HS 02/10/24 02/10/24 History Clopidogrel [Plavix] 75 mg PO DIRECTED 02/10/24 02/10/24 History Folic Acid 1 mg PO DIRECTED 02/10/24 02/10/24 History Ipratropium/Albuter 20-100Mcg 1 puff INHALATION DIRECTED PRN 02/10/24 02/10/24 History [Combivent Respimat 20-100Mcg Inhaler] Latanoprost [Latanoprost 0.005%] 1 drop BOTH EYES HS 02/10/24 02/10/24 History Losartan [Cozaar] 25 mg PO DAILY 02/10/24 02/10/24 History Pantoprazole [Protonix] 40 mg PO DIRECTED 02/10/24 02/10/24 History Sertraline [Zoloft] 50 mg PO DAILY 02/10/24 02/10/24 History Sildenafil Citrate 100 mg PO DIRECTED PRN 02/10/24 02/10/24 History Acetaminophen Tab [Tylenol] 1,000 mg PO Q6HR PRN tab 02/11/24 Rx Nitroglycerin Sl Tabs [Nitrostat] 0.4 mg SUBLINGUAL Q5M PRN #20 tab 02/11/24 Rx Allergies Allergy/AdvReac Type Severity Reaction Status Date / Time No Known Allergies Allergy Verified 02/10/24 17:11 Physical Exam Vitals: Vital Signs Temp Pulse Resp BP BP Pulse Ox 02/11/24 08:00 98.1 F 74 16 153/77 98 02/11/24 04:00 98.5 F 69 16 129/69 98 02/11/24 00:00 63 16 116/63 98 02/10/24 20:00 98.4 F 65 16 133/72 97 02/10/24 17:33 61 16 141/79 02/10/24 16:33 62 16 137/78 02/10/24 16:03 62 16 119/69 02/10/24 15:33 65 16 136/62 97 02/10/24 15:18 61 16 120/72 97 02/10/24 15:03 64 16 158/84 96 02/10/24 14:52 98.6 F 70 16 168/75 98 02/10/24 12:37 97.8 F 71 18 130/78 99 Intake and Output 02/10/24 02/11/24 02/11/24 22:59 06:59 14:59 Intake Total 500 Output Total 500 Balance 500 -500 Intake: Oral 500 Output: Urine 500 Other: Voiding Method Toilet Toilet # Voids 1 Weight 110.2 kg Results CBC & Chem 7: 02/11/24 09:11 02/11/24 09:11 Labs: Abnormal Lab Results - Last 24 Hours (Table) 02/10/24 02/11/24 Range/Units 12:39 09:11 WBC 12.2 H (3.8-10.6) k/uL RBC 3.03 L (4.30-5.90) m/uL Hgb 8.7 L (13.0-17.5) gm/dL Hct 26.8 L (39.0-53.0) % RDW 16.0 H (11.5-15.5) % Neutrophils # 9.9 H (1.3-7.7) k/uL Lymphocytes # 0.9 L (1.0-4.8) k/uL POC Glucose (mg/dL) 122 H (70-110) mg/dL Thrombosis Risk Factor Assmnt - DVT/VTE Prophylaxis DVT/VTE Prophylaxis: Pharmacologic Prophylaxis ordered - Choose All That Apply Each Risk Factor Represents 3 Points: Age 75 years or older Thrombosis Risk Factor Assessment Total Risk Factor Score: 3 Thrombosis Risk Factor Assessment Level: Moderate Risk Assessment and Plan Time with Patient: Greater than 30
--- NOTE | 2024-02-12 06:46 | P.DS ---
Providers Date of admission: 02/10/24 12:30 Expected date of discharge: 02/11/24 Attending physician: Jesi Mason Consults: 02/10/24 14:43 Consult Physician Routine Consulting Provider: Reginaldo Earl Consult Reason/Comments: Post Interventional Patient Do you want consulting provider notified?: Already Contacted 02/10/24 14:48 Consult Physician Routine Consulting Provider: Reginaldo Earl Consult Reason/Comments: Post Interventional patient Do you want consulting provider notified?: Already Contacted Primary care physician: Tomi Agustin [facility] Course: Final diagnosis Assessment: NSTEMI, status post cardiac catheterization with PCI stenting to the RCA History of coronary artery disease History of prostate cancer History of newly diagnosed colon cancer History of DVT Hyperlipidemia Hypertension Former smoker THC use Obesity with a body mass index of 34.9 GI prophylaxis DVT prophylaxis Full code Discharge disposition Patient is being discharged in a stable condition with guarded prognosis to home. Patient will follow-up with Dr. Agustin in the outpatient setting upon discharge. Patient is to continue with aspirin and Plavix and close outpatient follow-up with cardiology as scheduled. Total time taken is greater than 35 minutes. Hospital course This is a very pleasant 78-year-old male who was sent over here from [facility] for cardiology evaluation and intervention. Patient is status post PCI stenting to the RCA. Patient underwent surgical intervention yesterday evening for NSTEMI. Patient follows with Dr. Agustin in the outpatient setting with a past medical history of coronary artery disease, DVT, hyperlipidemia, hypertension, previous myocardial infarction's, history of prostate cancer, newly diagnosed colon cancer, former smoker, occasionally uses marijuana and occasional alcohol. On exam patient denies any chest pain or shortness of breath and expresses to go home. Patient will be continued on aspirin and Plavix per cardiology and close outpatient follow-up PHYSICAL EXAMINATION: GENERAL: The patient is alert and oriented x3, not in any acute distress. Well developed, elderly appearing, obese HEENT: Pupils are round and equally reacting to light. EOMI. No scleral icterus. No conjunctival pallor. Normocephalic, atraumatic. No pharyngeal erythema. No thyromegaly. CARDIOVASCULAR: S1 and S2 muffled PULMONARY: Diminished breath sounds bilaterally otherwise chest is clear to auscultation, no wheezing or crackles. ABDOMEN: Soft, obese nontender, nondistended, normoactive bowel sounds. No palpable organomegaly. MUSCULOSKELETAL: No joint swelling or deformity. EXTREMITIES: No cyanosis, clubbing, or pedal edema. NEUROLOGICAL: Gross neurological examination did not reveal any focal deficits. SKIN: No rashes. Patient reports to feeling well and would like to go home. Patient has been cleared by cardiology recommending continuing aspirin and Plavix for at least 12 months and close outpatient follow-up with Dr. Merchant in the next 1 week. Patient reported generalized weakness and recommended PT/OT therapy although patient reports he has support at the home and is requesting to be discharged and go home. Patient is high risk for readmissions given comorbidities and continued weakness. Recommend follow-up with primary care provider this week. Please refer to other consultation notes for further HPI. Currently patient denies any chest pain, shortness of breath, or palpitations. Patient is afebrile. No reported nausea or vomiting and patient tolerating diet. Patient will be discharged home today. Please refer to medication reconciliation sheet for a list of medications. The impression and plan of care has been dictated by Brenda Robles, Nurse Practitioner as directed. Dr. Ara MD I have performed a history and examination and MDM of this patient, discussed the same with the dictator, and agree with the dictator's assessment and plan as written ,documented as a scribe. Based on total visit time, I have performed more than 50% of the visit. Patient Condition at Discharge: Fair Plan - Discharge Summary New Discharge Prescriptions: New Nitroglycerin Sl Tabs [Nitrostat] 0.4 mg SUBLINGUAL Q5M PRN #20 tab PRN Reason: Chest Pain Acetaminophen Tab [Tylenol] 1,000 mg PO Q6HR PRN tab PRN Reason: Pain Continue Furosemide [Lasix] 40 mg PO DAILY Metoprolol Succinate [Toprol XL] 100 mg PO DAILY Pantoprazole [Protonix] 40 mg PO DIRECTED Ipratropium/Albuter 20-100Mcg [Combivent Respimat 20-100Mcg Inhaler] 1 puff INHALATION DIRECTED PRN PRN Reason: Shortness Of Breath Sildenafil Citrate 100 mg PO DIRECTED PRN PRN Reason: E.D. busPIRone HCL 10 mg PO TID Clopidogrel [Plavix] 75 mg PO DIRECTED Aspirin [Adult Low Dose Aspirin EC] 81 mg PO DAILY Sertraline [Zoloft] 50 mg PO DAILY Latanoprost [Latanoprost 0.005%] 1 drop BOTH EYES HS Atorvastatin [Lipitor] 40 mg PO HS Folic Acid 1 mg PO DIRECTED Losartan [Cozaar] 25 mg PO DAILY ALPRAZolam [Xanax] 0.25 mg PO DAILY PRN PRN Reason: Anxiety Discharge Medication List Furosemide [Lasix] 40 mg PO DAILY 07/08/17 [History] Metoprolol Succinate [Toprol XL] 100 mg PO DAILY 03/28/19 [History] busPIRone HCL 10 mg PO TID 11/15/20 [History] ALPRAZolam [Xanax] 0.25 mg PO DAILY PRN 02/10/24 [History] Aspirin [Adult Low Dose Aspirin EC] 81 mg PO DAILY 02/10/24 [History] Atorvastatin [Lipitor] 40 mg PO HS 02/10/24 [History] Clopidogrel [Plavix] 75 mg PO DIRECTED 02/10/24 [History] Folic Acid 1 mg PO DIRECTED 02/10/24 [History] Ipratropium/Albuter 20-100Mcg [Combivent Respimat 20-100Mcg Inhaler] 1 puff INHALATION DIRECTED PRN 02/10/24 [History] Latanoprost [Latanoprost 0.005%] 1 drop BOTH EYES HS 02/10/24 [History] Losartan [Cozaar] 25 mg PO DAILY 02/10/24 [History] Pantoprazole [Protonix] 40 mg PO DIRECTED 02/10/24 [History] Sertraline [Zoloft] 50 mg PO DAILY 02/10/24 [History] Sildenafil Citrate 100 mg PO DIRECTED PRN 02/10/24 [History] Acetaminophen Tab [Tylenol] 1,000 mg PO Q6HR PRN tab 02/11/24 [Rx] Nitroglycerin Sl Tabs [Nitrostat] 0.4 mg SUBLINGUAL Q5M PRN #20 tab 02/11/24 [Rx] Follow up Appointment(s)/Referral(s): Filippo Merchant DO [STAFF PHYSICIAN] - 02/16/24 2:45 pm Tomi Agustin DO [Primary Care Provider] - 1 Week Patient Instructions/Handouts: *Surgery [facility] - After Heart Catheterization - Global Implementation Manager Instructions Activity/Diet/Wound Care/Special Instructions: Activity limited until follow-up Follow-up with primary care provider on discharge Follow-up with cardiology in 1 week Continue taking medications as prescribed Continue heart healthy diet Discharge Disposition: HOME SELF-CARE
== END 2024-02-11 13:56 | disposition home or self-care (01) | DRG 322 ==
LOC: 3SCARD 12:30
PROVIDERS: ADMIT Hospitalist; ATTEND Hospitalist
PROC: 027035Z Dilation of Coronary Artery, One Artery with Two Drug-eluting Intraluminal Devices, Percutaneous Approach (ICD-10-PCS; principal; 2024-02-10 12:00)
PROC: B240ZZ3 Ultrasonography of Single Coronary Artery, Intravascular (ICD-10-PCS; 2024-02-10 12:00)
DX: I21.4 Non-ST elevation (NSTEMI) myocardial infarction (principal); E66.9 Obesity, unspecified; I10 Essential (primary) hypertension; Z68.34 Body mass index [BMI] 34.0-34.9, adult; I25.10 Atherosclerotic heart disease of native coronary artery without angina pectoris; E78.5 Hyperlipidemia, unspecified; I25.2 Old myocardial infarction; Z85.038 Personal history of other malignant neoplasm of large intestine; Z87.891 Personal history of nicotine dependence; Z86.718 Personal history of other venous thrombosis and embolism; Z85.46 Personal history of malignant neoplasm of prostate; Z79.02 Long term (current) use of antithrombotics/antiplatelets; Z79.899 Other long term (current) drug therapy
CPT/HCPCS: 80048; 85025; 92978